=== PATIENT | female | born 1930 | race Caucasian/White ===

== ENCOUNTER 2016-12-31 21:13 | Inpatient (IN) ==
[2016-12-31 23:32] LABS: Hematocrit 43.7 % (35.3-44.9); Hemoglobin 14.9 g/dL (11.5-15.4); Mean Corpuscular HGB Conc 34.1 g/dL (31.6-35.5); Mean Corpuscular Hemoglobin 32.9 pg (28.0-33.3); Mean Corpuscular Volume 96.5 fL (83.0-100.0); Mean Platelet Volume 9.4 fL (9.4-12.4); Platelet Count 544 K/mcL (140-400); Red Blood Count 4.53 M/mcL (3.82-4.97); Red Cell Distribution Width 14.1 % (11.5-14.5)
[2016-12-31 23:36] LABS: INR 1.1; Prothrombin Time 11.7 Seconds (9.4-12.1)
[2016-12-31 23:39] LABS: Activated Partial Thrombo Time 31.3 Seconds (26.0-36.0)
[2016-12-31 23:44] LABS: BUN/Creatinine Ratio 21 (6-26); Blood Urea Nitrogen 17 mg/dL (7-20); Calcium 10.1 mg/dL (8.6-10.8); Carbon Dioxide 22 mEq/L (19-29); Chloride 96 mEq/L (98-109); Glucose 124 mg/dL (70-99); Osmolality,Calculated 273 (280-300); Potassium 4.5 mEq/L (3.5-4.5); Sodium 130 mEq/L (136-145); eGFR For African Americans > 60 (> 60); eGFR For Non-African Americans > 60 (> 60)
[2017-01-01 00:06] LABS: Monocytes # 1.8 K/mcL (0.0-1.3); Neutrophils # 24.1 K/mcL (1.6-8.9)
[2017-01-01 00:09] LABS: Platelet Estimate Increased (Normal); Polychromasia 1+ (Not Present)
[2017-01-01] MEDS ORDERED: Azithromycin 500 MG in D5% in Water 250 ML IVPB ONE (01:18)
[2017-01-01] MEDS ORDERED: 0.9 % Sodium Chloride 1,000 ML IVC ONE (01:18)
[2017-01-01] MEDS ORDERED: Ondansetron 4 MG/2 ML VIAL IVP ONE (01:20)
[2017-01-01] MEDS ORDERED: *HR* Morphine 2 MG/ML SYRINGE IVP ONE (01:20)
--- NOTE | 2017-01-01 01:23 | Emergency Department Note ---
Disposition Clinical Impression: Pulmonary nodules Pneumonia Qualifiers: Pneumonia type: due to unspecified organism Laterality: right Lung location: middle lobe of lung Qualified Code(s): J18.1 - Lobar pneumonia, unspecified organism Leukocytosis Qualifiers: Leukocytosis type: unspecified Qualified Code(s): D72.829 - Elevated white blood cell count, unspecified Breast cancer Qualifiers: Breast location: unspecified site of breast Patient sex: female Laterality: left Qualified Code(s): C50.912 - Malignant neoplasm of unspecified site of left female breast Disposition: Admitted As Inpatient Condition: Fair Time of Disposition: 01:23 General Adult HPI - General Chief complaint: ED General Medical Stated complaint: knots under breast line Time Seen by Provider: 01/01/17 01:10 Source: patient Mode of arrival: ambulatory Limitations: no limitations Nursing Notes Reviewed: Yes Vital Signs Reviewed: Yes - History of Present Illness HPI Narrative: 86-year-old female with history of primary breast malignancy diagnosed 4 months (on po chemo), COPD present for evaluation of left-sided chest pain started earlier today. Patient notes she has been feeling nauseous over the past 2-4 days with vomiting. Patient states that the pain started earlier today notes to be in the left lower chest left upper abdomen. Atraumatic. Notes worse with deep inspiration and worse with palpation. Patient denies any fevers does report a cough reports shortness of breath at her baseline. Patient states that she has has home oxygen continuously. Pain Scale: 10 - Related Data Home Medications Medication Instructions Recorded Confirmed Amlodipine Besylate [Norvasc] 10 mg PO DAILY 04/12/15 12/09/16 Cholecalciferol (Vitamin D3) 400 unit PO DAILY 04/12/15 12/09/16 [Vitamin D] Duloxetine HCl [Cymbalta] 60 mg PO DAILY 04/12/15 12/09/16 Levothyroxine [Synthroid] 100 mcg PO DAILY 04/12/15 12/09/16 Phenytoin [Dilantin] 100 mg PO BID 04/12/15 12/09/16 Temazepam 30 mg PO HS PRN 04/12/15 12/09/16 Tizanidine HCl [Zanaflex] 4 mg PO TID 04/12/15 12/09/16 Ipratropium/Albuterol Neb [Duoneb] 3 ml IH Q6HR 12/09/16 12/09/16 Previous Rx's Medication Instructions Recorded Acetaminophen w/Cod 300-30 mg 1 - 2 tab PO Q6HR PRN #30 tablet 12/23/15 [Tylenol w/Codeine #3] Anastrozole [Arimidex] 1 mg PO DAILY #90 tablet 11/12/16 HYDROcodone/Acet 5/325 mg [[place] 1 tab PO Q6H PRN #12 tab 12/09/16 5-325 mg] PredniSONE 60 mg PO DAILY #15 tablet 12/09/16 OxyCODONE/APAP 5/325 [Percocet 1 each PO Q6HR PRN #10 tablet 12/16/16 5/325 MG] Albuterol Sulfate [Proair 2 puff IH Q4H PRN #1 12/25/16 Respiclick] Amitriptyline [Elavil] 25 mg PO HS #30 tablet 12/25/16 Gabapentin [Neurontin] 300 mg PO HS #30 capsule 12/25/16 Lidocaine Patch [Lidoderm 5% patch] 1 patch TP DAILY #10 adh..patch 12/25/16 Allergies Allergy/AdvReac Type Severity Reaction Status Date / Time phenobarbital AdvReac Intermediate hallucinati Verified 12/16/16 20:30 ons All systems ED: reviewed and negative except as stated. Constitutional: Reports: as per HPI. Denies: fever Eyes: Reports: as per HPI ENT ED: Reports: as per HPI Cardiovascular: Reports: as per HPI, chest pain Respiratory: Reports: as per HPI, cough, dyspnea Gastrointestinal: Reports: as per HPI, nausea, vomiting. Denies: abdominal pain Genitourinary: Reports: as per HPI Musculoskeletal: Reports: as per HPI Integumentary: Reports: as per HPI Neurological: Reports: as per HPI Psychiatric: Reports: as per HPI Past Medical History - Past Medical History Medical history: Reports: cancer, COPD, hypertension, other Surgical history: Reports: non-contributory - Social History Smoking Status: Current every day smoker Alcohol use: Reports: none Drug use: Reports: none Physical Exam - General Limitations: no limitations General appearance: alert, in no apparent distress - Head Head exam: atraumatic, normocephalic, normal inspection - Eye Eye exam: Present: normal appearance, EOMI - ENT ENT exam: normal exam, mucous membranes moist - Neck Neck exam: Present: normal inspection - Chest Chest inspection: Present: normal inspection, symmetric chest wall rise, tenderness (Left lower chest wall). Absent: rash - Respiratory Respiratory exam: Present: prolonged expiratory phase, other (Dependent rhonchi left worse than right). Absent: respiratory distress - Cardiovascular Cardiovascular exam: Present: regular rate - Abdominal Exam Abdominal exam: Present: soft, tenderness. Absent: guarding, rebound - Extremities Exam Extremities exam: Present: normal inspection. Absent: pedal edema - Back Exam Back exam: Present: normal inspection - Neurological Exam Neurological exam: Present: alert, oriented X3 - Skin Skin exam: Present: warm, dry, intact, normal color Course Course Narrative: Patient seen and examined. Patient presents with chief complaint of left lower chest pain as well as abdominal pain. Patient's lab work obtained from [facility] shows a leukocytosis that is significantly worsened than prior values. Patient' s chest x-rays consistent with pneumonia. Patient will get IV antibiotics fluids as well as further imaging with a CT of the chest. Patient control with Zofran and morphine. Vital Signs Temperature 97.7 F 12/31/16 21:14 Pulse Rate 99 12/31/16 21:14 Respiratory Rate 18 12/31/16 21:14 Blood Pressure 110/70 12/31/16 21:14 O2 Sat by Pulse Oximetry 93 12/31/16 21:14 Temperature 97.7 F 12/31/16 21:14 Pulse Rate 96 01/01/17 00:47 Respiratory Rate 16 01/01/17 03:22 Blood Pressure 128/65 01/01/17 03:22 O2 Sat by Pulse Oximetry 97 01/01/17 00:47 Oxygen Delivery Oxygen Delivery Nasal Cannula Medical Decision Making - [facility] Narrative Medical decision making narrative: 86 year old female presents for evaluation of left chest pain and left upper abdominal pain. Patient is a cancer patient and has left-sided breast cancer receiving oral chemotherapy agents. Patient follows at [facility]. Patient also notes that she has been having a cough. During during the emergency department stay the patient had a significant leukocytosis from prior lab values. Looking for source of infection in the lungs in the urine. The patient had a chest x-ray was suggestive of pneumonia. Patient also had a CTA of the chest is concerned for pulmonary embolism in a patient who is high risk for pulmonary also. CTA of the chest better define the pneumonia. Patient has not been hospitalized in the past 3 months. Patient was treated with community acquired pneumonia antibiotics with Rocephin and Zithromax. Patient's EKG reviewed and shows no acute changes. Patient's troponin is normal. Patient was not given a 30 mL/kg bolus as she is 86-year-old with unknown ejection fraction. Patient was treated conservatively with IV fluid hydration. Patient will be admitted to the hospitalist service for further care and management. - Lab Data Lab results reviewed: Yes I reviewed the patient's lab results. Result diagrams: 12/31/16 23:20 12/31/16 23:20 Lab Results 12/31/16 12/31/16 12/31/16 Range/Units 23:20 23:20 23:20 WBC 30.1 H* (4.3-11.1) K/mcL RBC 4.53 (3.82-4.97) M/mcL Hgb 14.9 (11.5-15.4) g/dL Hct 43.7 (35.3-44.9) % MCV 96.5 (83.0-100.0) fL MCH 32.9 (28.0-33.3) pg MCHC 34.1 (31.6-35.5) g/dL RDW 14.1 (11.5-14.5) % Plt Count 544 H (140-400) K/mcL MPV 9.4 (9.4-12.4) fL Seg Neutrophils % 78.0 % Band Neutrophils % 2.0 (0-4) % Lymphocytes % 10.0 % Monocytes % 6.0 % Myelocytes % 4.0 H (0) % Neutrophils # 24.1 H (1.6-8.9) K/mcL Lymphocytes # 3.0 (0.6-4.6) K/mcL Monocytes # 1.8 H (0.0-1.3) K/mcL Platelet Estimate Increased H (Normal) Polychromasia 1+ A (Not Present) PT 11.7 (9.4-12.1) Seconds INR 1.1 APTT 31.3 (26.0-36.0) Seconds Sodium 130 L (136-145) mEq/L Potassium 4.5 (3.5-4.5) mEq/L Chloride 96 L (98-109) mEq/L Carbon Dioxide 22 (19-29) mEq/L BUN 17 (7-20) mg/dL Creatinine 0.81 (0.57-1.11) mg/dL Est GFR ( Amer) > 60 (> 60) Est GFR (Non-Af Amer) > 60 (> 60) BUN/Creatinine Ratio 21 (6-26) Glucose 124 H (70-99) mg/dL Calculated Osmolality 273 L (280-300) Lactic Acid (0.5-2.2) mmol/L Calcium 10.1 (8.6-10.8) mg/dL Troponin I (0-0.03) ng/mL B-Natriuretic Peptide (0-100) pg/mL 12/31/16 12/31/16 01/01/17 Range/Units 23:20 23:20 01:54 WBC (4.3-11.1) K/mcL RBC (3.82-4.97) M/mcL Hgb (11.5-15.4) g/dL Hct (35.3-44.9) % MCV (83.0-100.0) fL MCH (28.0-33.3) pg MCHC (31.6-35.5) g/dL RDW (11.5-14.5) % Plt Count (140-400) K/mcL MPV (9.4-12.4) fL Seg Neutrophils % % Band Neutrophils % (0-4) % Lymphocytes % % Monocytes % % Myelocytes % (0) % Neutrophils # (1.6-8.9) K/mcL Lymphocytes # (0.6-4.6) K/mcL Monocytes # (0.0-1.3) K/mcL Platelet Estimate (Normal) Polychromasia (Not Present) PT (9.4-12.1) Seconds INR APTT (26.0-36.0) Seconds Sodium (136-145) mEq/L Potassium (3.5-4.5) mEq/L Chloride (98-109) mEq/L Carbon Dioxide (19-29) mEq/L BUN (7-20) mg/dL Creatinine (0.57-1.11) mg/dL Est GFR ( Amer) (> 60) Est GFR (Non-Af Amer) (> 60) BUN/Creatinine Ratio (6-26) Glucose (70-99) mg/dL Calculated Osmolality (280-300) Lactic Acid 1.5 (0.5-2.2) mmol/L Calcium (8.6-10.8) mg/dL Troponin I 0.01 (0-0.03) ng/mL B-Natriuretic Peptide 67 (0-100) pg/mL - Radiology Data Radiology results reviewed: Yes I reviewed the patient's radiology results. Chest X-Ray 12/31/16 21:23 IMPRESSION: 1. New right lower lobe opacity concerning for early pneumonia. Radiographic follow-up to resolution is recommended. 2. Findings of emphysema and chronic obstructive physiology. D/ / Gabriel Velez MD / Gabriel Velez MD Interpreting Provider: Gabriel Velez MD Chest CTA 01/01/17 01:19 IMPRESSION: Interval development of right lower lobe pneumonia. Stable right middle lobe and right lower lobe pulmonary nodules. Recommend follow-up as described on chest CT 12/16/2016. Spiculated appearance to the right lower lobe pulmonary nodule could indicate an early finding of lung carcinoma. Underlying pulmonary emphysema Multinodular goiter D/ / Alonzo Barboza MD / Alonzo Barboza MD Interpreting Provider: Alonzo Barboza MD S.B.A.RJoel - S.B.A.RJoel Situation: Demographics, MOA Background: Presenting Complaint Assessment: Vital Signs, Course and respsone to treatment, Patient/Family Expectation Recommendation: Barrier(s) to disposition, Recommendation based on pending studies, treatments, or consults S.B.A.R. Report Given to: Hospitalist Raghavendra Repor Time: 02:47 Attestation Statement - Attestation Attestation: I, Gume Miranda, examined this patient and my medical decision-making was reviewed with the SHIRT OPERATOR/PA/Advanced Practice Nurse/Resident Physician. I agree with the documented findings, disposition and treatment plan as described except to the extent set forth below. 6-year-old female presents with concerns of pain in the right and left lower lateral chest. Patient states that she has chronic pain in the left lateral chest with coughing and palpation secondary to broken ribs in the past. Patient now developed pain in the right lower lateral chest over the past 3 days in conjunction with coughing and shortness of breath. Patient has a history of cancer and a CTA of the chest was ordered to rule out PE. CTA of the chest revealed a right lower lobe pneumonia. Patient started on ceftriaxone and azithromycin emergency department and will be admitted for further care and observation.
--- NOTE | 2017-01-01 04:47 | Internal Med History&Physical ---
Date of Encounter: 01/01/17 Time of Encounter: 04:30 Assessment and Plan (1) Sepsis Current visit: Yes Status: Acute pt with signs and symptoms of pneumonia, found to meet SIRS criteria( the extreme leukocytosis may be related to neulasta) she is being managed per pneumonia section, blood c/s drawn and empiric Abx started, will follow cultures Qualifiers: Sepsis type: sepsis due to unspecified organism Qualified Code(s): A41.9 - Sepsis, unspecified organism (2) Pneumonia Current visit: Yes Status: Acute patient comes in with signs and symptoms of pneumonia with an infiltrate on diagnostic imaging, we will treat empirically as community acquired, we will additionally check urine strep and legionella, sputum Gram stain and c/s, will continue supportive measures for pain and supplemental oxygen as needed Qualifiers: Pneumonia type: due to unspecified organism Laterality: right Lung location: lower lobe of lung Qualified Code(s): J18.1 - Lobar pneumonia, unspecified organism (3) COPD exacerbation Current visit: Yes Status: Acute this is in the setting of pneumonia, we will treat with duo nebs, steroids supplemental oxygen, (4) HTN (hypertension) Current visit: Yes Status: Chronic hx of HTN on amlodipine, we will continue that with BP monitoring Qualifiers: Hypertension type: essential hypertension Qualified Code(s): I10 - Essential (primary) hypertension (5) Breast cancer Current visit: Yes Status: Chronic recently diagnosed and is being managed on the outpatient, we will defer to her oncologist Qualifiers: Breast location: areola Patient sex: female Laterality: left Qualified Code(s): 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, left female breast Internal Medicine - H&P: HPI Chief complaint: Chest pain Admitted From: Emergency Dept Plans for Post Hospital Care: Home History of present illness: Ms. Espinal is a 86 year old female with a history of chronic respiratory failure from COPD on 2L/min of home oxygen who comes with with chest pain. She reports being in her usual state of health until Saturday evening when she began to have left sided chest pain that was pleuritic in character. It was intermittent, worse with deep breaths, associated with productive cough of yellow sputum. This was followed by worsening baseline dyspnea and dyspnea on exertion. She denies fever, chills but reports nausea and vomiting from Saturday through Saturday. She also realized that she was using her inhaler more and was finding it difficult to breathe and her inhalers did not seem to help. She was also waking up at night due to her symptoms. She presented here due to worsening symptoms. Past Medical history: Cancer - Breast (left side), Cancer - Colon, COPD, GERD, Hypertension, Thyroid dysfunction Surgical History cholecystectomy, colectomy (partial), Hysterectomy (total), colon resection PSYCH History: anxiety, depression SOCIAL HISTORY Tobacco use: 60pk years, still actively smokes 1ppd, down from >1ppd Alcohol use: none Drug use: none Marital status: Occupation and status: Retired Living situation: Lives with her . Family History: Throat cancer in her brother. Past Med Surg Social Fam HX - Past Medical History Medical history: cancer, COPD, hypertension, other - Past Surgical History Surgical History: non-contributory - Social History Smoking Status: Current every day smoker Alcohol use: none Drug use: none Internal Medicine - H&P: Meds Amlodipine Besylate [Norvasc] 10 mg PO DAILY 04/12/15 [History] Cholecalciferol (Vitamin D3) [Vitamin D] 400 unit PO DAILY 04/12/15 [History] Duloxetine HCl [Cymbalta] 60 mg PO DAILY 04/12/15 [History] Levothyroxine [Synthroid] 100 mcg PO DAILY 04/12/15 [History] Phenytoin [Dilantin] 100 mg PO BID 04/12/15 [History] Temazepam 30 mg PO HS PRN 04/12/15 [History] Tizanidine HCl [Zanaflex] 4 mg PO TID 04/12/15 [History] Acetaminophen w/Cod 300-30 mg [Tylenol w/Codeine #3] 1 - 2 tab PO Q6HR PRN #30 tablet 12/23/15 [Rx] Anastrozole [Arimidex] 1 mg PO DAILY #90 tablet 11/12/16 [Rx] HYDROcodone/Acet 5/325 mg [[place] 5-325 mg] 1 tab PO Q6H PRN #12 tab 12/09/16 [Rx ] Ipratropium/Albuterol Neb [Duoneb] 3 ml IH Q6HR 12/09/16 [History] PredniSONE 60 mg PO DAILY #15 tablet 12/09/16 [Rx] OxyCODONE/APAP 5/325 [Percocet 5/325 MG] 1 each PO Q6HR PRN #10 tablet 12/16/16 [Rx] Albuterol Sulfate [Proair Respiclick] 2 puff IH Q4H PRN #1 12/25/16 [Rx] Amitriptyline [Elavil] 25 mg PO HS #30 tablet 12/25/16 [Rx] Gabapentin [Neurontin] 300 mg PO HS #30 capsule 12/25/16 [Rx] Lidocaine Patch [Lidoderm 5% patch] 1 patch TP DAILY #10 adh..patch 12/25/16 [Rx ] Allergies phenobarbital Adverse Reaction (Intermediate, Verified 12/16/16 20:30) hallucinations All Systems PM: A 10-system review of systems was performed and is negative for pertinent findings except as documented above in the HPI. - Constitutional Constitutional: as per HPI - EENT Eyes: as per HPI Nose, mouth and throat: as per HPI - Cardiovascular Cardiovascular ROS IM: as per HPI - Respiratory Respiratory: as per HPI - Gastrointestinal Gastrointestinal: as per HPI - Musculoskeletal Musculoskeletal ROS IM: as per HPI - Neurological Neurological ROS: as per HPI - Constitutional Vitals: Temp Pulse Resp BP Pulse Ox 97.7 F 96 16 128/65 97 12/31/16 21:14 01/01/17 00:47 01/01/17 03:22 01/01/17 03:22 01/01/17 00:47 Physical Exam: General: Frail looking elderly female, lying in bed with with transmitted sounds from the upper airways, alert, in mild respiratory distress HEENT: Head normal inspection, atraumatic, PERRLA, oropharynx grossly intact and normal, trachea midline, no JVD CVS: RRR with no murmurs, rubs, gallops, no ankle edema Respiratory: mild respiratory distress, wheezing throughout with transmitted sounds from upper airway, tight chest, Abdomen: Normal inspection, Normal bowel sounds 4 quadrants, nontender to palpation Extremities: Normal inspection, full range of motion, appropriate pulses, capillary refill under 2 seconds Neurological: Patient alert and oriented 3, cranial nerves II through XII grossly intact, non focal motor and sensory exam Skin: bilateral upper extremity ecchymoses Internal Med - H&P Results - Labs CBC & Chem 7: 12/31/16 23:20 04/24/17 23:20 - EKG Data -: EKG Interpreted by Myself EKG shows normal: sinus rhythm Rate: tachycardia - EKG Data Prior EKG available for review: no - Diagnostic Studies Chest x-ray Status: image reviewed by me CT scan - chest Status: image reviewed by me
[2017-01-01] MEDS ORDERED: Naloxone 0.4 MG/ML INJ IVP PRN (04:50)
[2017-01-01] MEDS ORDERED: Acetaminophen 325 MG TABLET PO PRN ×2 (04:50→13:29)
[2017-01-01] MEDS ORDERED: *HR* OxyCODONE/APAP 5/325 TABLET PO PRN (04:51)
[2017-01-01] MEDS ORDERED: Albuterol 2.5 MG/3 ML NEBULIZER IH PRN (05:04)
[2017-01-01] MEDS: *HR* Heparin 5,000 UNIT/ML VIAL SQ SCH ×3 (06:27→22:13)
[2017-01-01] MEDS: Albuterol 2.5 MG/3 ML NEBULIZER IH SCH ×2 (08:22→11:01)
[2017-01-01] MEDS: Ipratropium Neb 0.5 MG NEBULIZER IH SCH ×2 (08:22→11:01)
[2017-01-01] MEDS ORDERED: tiZANidine 4 MG TABLET PO SCH (09:00)
[2017-01-01 09:09] LABS: Basophils # 0.1 K/mcL (0.0-0.2); Basophils % 0.4 %; Eosinophils # 0.1 K/mcL (0.0-0.6); Eosinophils % 0.3 %; Hematocrit 34.1 % (35.3-44.9); Immature Granulocytes % 2.3 % (0-4); Lymphocytes % 11.8 %; Mean Corpuscular HGB Conc 33.4 g/dL (31.6-35.5); Mean Corpuscular Hemoglobin 32.3 pg (28.0-33.3); Mean Corpuscular Volume 96.6 fL (83.0-100.0); Mean Platelet Volume 9.7 fL (9.4-12.4); Monocytes # 1.2 K/mcL (0.0-1.3); Monocytes % 4.7 %; Platelet Count 429 K/mcL (140-400); Red Blood Count 3.53 M/mcL (3.82-4.97); Red Cell Distribution Width 14.1 % (11.5-14.5); Segmented Neutrophils % 80.5 %
[2017-01-01 09:11] LABS: Neutrophils # 20.5 K/mcL (1.6-8.9)
[2017-01-01 09:12] LABS: Hemoglobin 11.4 g/dL (11.5-15.4)
[2017-01-01 09:24] LABS: BUN/Creatinine Ratio 21 (6-26); Blood Urea Nitrogen 14 mg/dL (7-20); Carbon Dioxide 21 mEq/L (19-29); Chloride 100 mEq/L (98-109); Glucose 101 mg/dL (70-99); Magnesium 1.8 mg/dL (1.6-2.6); Osmolality,Calculated 267 (280-300); Potassium 4.1 mEq/L (3.5-4.5); Sodium 128 mEq/L (136-145); eGFR For African Americans > 60 (> 60); eGFR For Non-African Americans > 60 (> 60)
[2017-01-01 09:25] LABS: Calcium 8.2 mg/dL (8.6-10.8)
[2017-01-01] MEDS: predniSONE 20 MG TABLET PO SCH (10:08)
--- NOTE | 2017-01-01 13:23 | Internal Med Progress Note ---
Date of Encounter: 01/01/17 Time of Encounter: 13:22 - Assessment and plan (1) Sepsis Current Visit: Yes Status: Acute Assessment and plan: Secondary to Pna continue empiric abx therapy IV fluids follow up blood culture the extreme leukocytosis may be related to neulasta (received as outpatient) Qualifiers: Sepsis type: sepsis due to unspecified organism Qualified Code(s): A41.9 - Sepsis, unspecified organism (2) Pneumonia Current Visit: Yes Status: Acute Assessment and plan: Continue empiric abx f/u blood cultures tylenol prn fever restarted home pain medications monitor O2 saturation O2 supplementation as needed Qualifiers: Pneumonia type: due to unspecified organism Laterality: right Lung location: lower lobe of lung Qualified Code(s): J18.1 - Lobar pneumonia, unspecified organism (3) COPD exacerbation Current Visit: Yes Status: Acute Assessment and plan: continue steroids and bronchodilator support O2 supplementation as needed monitor O2 sat, goal O2 sat: 89-92% (4) HTN (hypertension) Current Visit: Yes Status: Chronic Assessment and plan: BP within acceptable range continue home medications Qualifiers: Hypertension type: essential hypertension Qualified Code(s): I10 - Essential (primary) hypertension (5) DVT prophylaxis Current Visit: Yes Status: Acute Assessment and plan: Heparin SQ (6) Breast cancer Current Visit: Yes Status: Chronic Assessment and plan: newly diagnosed, currently being managed as outpatient further management as per primary oncologist after discharge Qualifiers: Breast location: unspecified site of breast Patient sex: female Laterality: left Qualified Code(s): C50.912 - Malignant neoplasm of unspecified site of left female breast - Subjective Interval history: Patient seen and examined at bedside. Resting in bed and reports of diffuse rib pain. States she takes Tylenol 3 at home for pain. Denies any shortness of breath at this time. - Constitutional Vitals: Temp Pulse Resp BP Pulse Ox 97.5 F L 69 16 101/63 96 01/01/17 12:16 01/01/17 12:16 01/01/17 12:16 01/01/17 12:16 01/01/17 12:16 General appearance: Present: A&O X 3, no acute distress, answers questions appropriately - Head Head exam: Present: atraumatic, normocephalic - Eye Eye exam: Present: normal appearance, conjuntiva pink, sclera anicteric - Respiratory Respiratory exam: Absent: wheezes (coarse breath sounds bilaterally) - Cardiovascular Cardiovascular exam: Present: RRR, +S1, +S2. Absent: diastolic murmur, gallop, rubs, systolic murmur - GI/Abdominal GI/Abdominal exam: Present: normal bowel sounds, soft, no peritoneal signs. Absent: distended, tenderness - Extremities Exam Extremities exam: Present: warm, radial pulses palpable and symetrical. Absent : calf tenderness, cyanotic, pedal edema - Neurological Exam Neurological exam: Present: alert, oriented X3 - Psychiatric Psychiatric exam: Present: normal affect, normal mood Internal Medicine: Result - Labs CBC & Chem 7: 01/01/17 08:59 01/01/17 08:59 Labs: Short CBC 01/01/17 Range/Units 08:59 WBC 25.4 H (4.3-11.1) K/mcL Hgb 11.4 L D (11.5-15.4) g/dL Hct 34.1 L (35.3-44.9) % Plt Count 429 H (140-400) K/mcL Neutrophils # 20.5 H (1.6-8.9) K/mcL BMP 01/01/17 08:59 Sodium 128 L Potassium 4.1 Chloride 100 Carbon Dioxide 21 BUN 14 Creatinine 0.67 Glucose 101 H Calcium 8.2 L D - ABG Interpretation ABG results: PT/INR, D-dimer PT 11.7 Seconds (9.4-12.1) 12/31/16 23:20 Consult Discharge Plan - Plan Referrals: Ernesto Easton MD [Primary Care Provider] - (Possible ECF)
[2017-01-01] MEDS: tiZANidine 4 MG TABLET PO PRN (13:45)
[2017-01-01] MEDS: *HR* Acetaminophen w/Cod 300-30 mg 1 TAB TABLET PO PRN ×2 (15:27→22:14)
[2017-01-01] MEDS: Ipratropium/Albuterol Neb 3 ML IH SCH ×2 (16:57→20:36)
[2017-01-01] MEDS: 0.9 % Sodium Chloride 1,000 ML IVC SCH (17:46)
[2017-01-01] MEDS ORDERED: Azithromycin 250 MG TABLET PO SCH (20:00)
[2017-01-01] MEDS: Gabapentin 300 MG CAPSULE PO SCH (20:29)
[2017-01-02] MEDS: Ipratropium/Albuterol Neb 3 ML IH SCH ×7 (01:57→23:32)
[2017-01-02] MEDS: *HR* Heparin 5,000 UNIT/ML VIAL SQ SCH ×3 (05:52→21:21)
[2017-01-02 06:50] LABS: Basophils # 0.1 K/mcL (0.0-0.2); Basophils % 0.5 %; Eosinophils # 0.1 K/mcL (0.0-0.6); Eosinophils % 0.4 %; Hematocrit 32.8 % (35.3-44.9); Lymphocytes # 3.1 K/mcL (0.6-4.6); Lymphocytes % 18.3 %; Mean Corpuscular HGB Conc 33.5 g/dL (31.6-35.5); Mean Corpuscular Hemoglobin 32.4 pg (28.0-33.3); Mean Corpuscular Volume 96.8 fL (83.0-100.0); Mean Platelet Volume 10.1 fL (9.4-12.4); Monocytes # 1.2 K/mcL (0.0-1.3); Monocytes % 6.8 %; Neutrophils # 12.2 K/mcL (1.6-8.9); Platelet Count 451 K/mcL (140-400); Red Blood Count 3.39 M/mcL (3.82-4.97)
[2017-01-02 07:09] LABS: BUN/Creatinine Ratio 22 (6-26); Blood Urea Nitrogen 15 mg/dL (7-20); Calcium 8.1 mg/dL (8.6-10.8); Carbon Dioxide 22 mEq/L (19-29); Chloride 105 mEq/L (98-109); Glucose 83 mg/dL (70-99); Magnesium 1.8 mg/dL (1.6-2.6); Osmolality,Calculated 278 (280-300); Phosphorous 2.4 mg/dL (2.3-4.7); Potassium 4.1 mEq/L (3.5-4.5); Sodium 134 mEq/L (136-145); eGFR For African Americans > 60 (> 60); eGFR For Non-African Americans > 60 (> 60)
[2017-01-02] MEDS: Azithromycin 250 MG TABLET PO SCH (09:28)
[2017-01-02] MEDS: predniSONE 20 MG TABLET PO SCH (09:29)
[2017-01-02] MEDS: Gabapentin 300 MG CAPSULE PO SCH ×2 (09:29→19:48)
[2017-01-02] MEDS: 0.9 % Sodium Chloride 1,000 ML IVC SCH (09:47)
--- NOTE | 2017-01-02 15:58 | Internal Med Progress Note ---
Date of Encounter: 01/02/17 Time of Encounter: 14:10 - Assessment and plan (1) Sepsis Current Visit: Yes Status: Acute Assessment and plan: Secondary to PNA continue empiric abx therapy IV fluids follow up blood culture Qualifiers: Sepsis type: sepsis due to unspecified organism Qualified Code(s): A41.9 - Sepsis, unspecified organism (2) Pneumonia Current Visit: Yes Status: Acute Assessment and plan: Continue empiric abx f/u blood cultures tylenol prn fever restarted home pain medications monitor O2 saturation O2 supplementation as needed (3) COPD exacerbation Current Visit: Yes Status: Acute Assessment and plan: continue steroids and bronchodilator support O2 supplementation as needed monitor O2 sat, goal O2 sat: 89-92% (4) HTN (hypertension) Current Visit: Yes Status: Chronic Assessment and plan: BP within acceptable range continue home medications Qualifiers: Hypertension type: essential hypertension Qualified Code(s): I10 - Essential (primary) hypertension (5) DVT prophylaxis Current Visit: Yes Status: Acute Assessment and plan: Heparin SQ (6) Breast cancer Current Visit: Yes Status: Chronic Assessment and plan: newly diagnosed, currently being managed as outpatient further management as per primary oncologist after discharge Pain control: restarted patient's home pain medications including Lidocaine TD patch Qualifiers: Breast location: unspecified site of breast Patient sex: female Laterality: left Qualified Code(s): C50.912 - Malignant neoplasm of unspecified site of left female breast - Subjective Interval history: Patient seen and examined at bedside. Reports of improvement in her respiratory status but continues to have persistent chronic rib pain, states she uses a pain patch at home and requests continuation of the patch. No overnight issues were reported. - Constitutional Vitals: Temp Pulse Resp BP Pulse Ox 97.7 F 84 18 139/65 99 01/02/17 15:54 01/02/17 15:54 01/02/17 15:54 01/02/17 15:54 01/02/17 15:54 General appearance: Present: A&O X 3, no acute distress, answers questions appropriately - Head Head exam: Present: atraumatic, normocephalic - Eye Eye exam: Present: normal appearance, conjuntiva pink, sclera anicteric - Respiratory Respiratory exam: Absent: respiratory distress, wheezes (coarse breath sounds bilaterally ) - Cardiovascular Cardiovascular exam: Present: RRR, +S1, +S2. Absent: diastolic murmur, gallop, rubs, systolic murmur - GI/Abdominal GI/Abdominal exam: Present: normal bowel sounds, soft, no peritoneal signs. Absent: distended, tenderness - Extremities Exam Extremities exam: Present: warm, radial pulses palpable and symetrical. Absent : calf tenderness, cyanotic, pedal edema - Neurological Exam Neurological exam: Present: alert, oriented X3 - Psychiatric Psychiatric exam: Present: normal affect, normal mood Internal Medicine: Result - Labs CBC & Chem 7: 01/02/17 06:18 01/02/17 06:18 Labs: Short CBC 01/02/17 Range/Units 06:18 WBC 17.1 H (4.3-11.1) K/mcL Hgb 11.0 L (11.5-15.4) g/dL Hct 32.8 L (35.3-44.9) % Plt Count 451 H (140-400) K/mcL Neutrophils # 12.2 H (1.6-8.9) K/mcL BMP 01/02/17 06:18 Sodium 134 L Potassium 4.1 Chloride 105 Carbon Dioxide 22 BUN 15 Creatinine 0.67 Glucose 83 Calcium 8.1 L - ABG Interpretation ABG results: PT/INR, D-dimer PT 11.7 Seconds (9.4-12.1) 12/31/16 23:20 Consult Discharge Plan - Plan Referrals: Ernesto Easton MD [Primary Care Provider] - 01/10/17 10:00 am ()
[2017-01-02] MEDS: tiZANidine 4 MG TABLET PO PRN (16:36)
[2017-01-02] MEDS: *HR* Acetaminophen w/Cod 300-30 mg 1 TAB TABLET PO PRN (19:47)
[2017-01-02] MEDS: clonazePAM 0.5 MG TABLET PO PRN (21:21)
[2017-01-03] MEDS: Ipratropium/Albuterol Neb 3 ML IH SCH ×6 (03:48→23:25)
[2017-01-03] MEDS: *HR* Heparin 5,000 UNIT/ML VIAL SQ SCH ×3 (04:26→22:24)
[2017-01-03] MEDS: *HR* Acetaminophen w/Cod 300-30 mg 1 TAB TABLET PO PRN ×3 (04:26→19:18)
[2017-01-03 06:19] LABS: Basophils # 0.1 K/mcL (0.0-0.2); Basophils % 0.4 %; Eosinophils # 0.1 K/mcL (0.0-0.6); Eosinophils % 0.6 %; Hematocrit 28.8 % (35.3-44.9); Hemoglobin 9.5 g/dL (11.5-15.4); Immature Granulocytes % 3.6 % (0-4); Lymphocytes # 2.6 K/mcL (0.6-4.6); Lymphocytes % 17.1 %; Mean Corpuscular Hemoglobin 32.3 pg (28.0-33.3); Mean Platelet Volume 9.9 fL (9.4-12.4); Monocytes # 0.9 K/mcL (0.0-1.3); Neutrophils # 11.2 K/mcL (1.6-8.9); Platelet Count 448 K/mcL (140-400); Red Blood Count 2.94 M/mcL (3.82-4.97); Red Cell Distribution Width 14.2 % (11.5-14.5); Segmented Neutrophils % 72.3 %
[2017-01-03 06:32] LABS: BUN/Creatinine Ratio 15 (6-26); Blood Urea Nitrogen 10 mg/dL (7-20); Calcium 7.6 mg/dL (8.6-10.8); Carbon Dioxide 21 mEq/L (19-29); Chloride 108 mEq/L (98-109); Glucose 146 mg/dL (70-99); Magnesium 1.8 mg/dL (1.6-2.6); Osmolality,Calculated 284 (280-300); Potassium 3.4 mEq/L (3.5-4.5); Sodium 136 mEq/L (136-145); eGFR For African Americans > 60 (> 60); eGFR For Non-African Americans > 60 (> 60)
[2017-01-03] MEDS ORDERED: Potassium Phosphate 44 MEQ in 0.9 % Sodium Chloride 250 ML IVPB ONE (09:07)
[2017-01-03] MEDS: Azithromycin 250 MG TABLET PO SCH (09:50)
[2017-01-03] MEDS: Gabapentin 300 MG CAPSULE PO SCH ×2 (09:51→22:24)
[2017-01-03] MEDS: predniSONE 20 MG TABLET PO SCH (09:52)
[2017-01-03] MEDS: clonazePAM 0.5 MG TABLET PO PRN ×2 (11:29→22:30)
--- NOTE | 2017-01-03 13:11 | Internal Med Progress Note ---
Date of Encounter: 01/03/17 Time of Encounter: 13:11 - Assessment and plan (1) Sepsis Current Visit: Yes Status: Acute Assessment and plan: Secondary to PNA continue empiric abx therapy IV fluids follow up blood culture discharge planning, likely d/c in am Qualifiers: Sepsis type: sepsis due to unspecified organism Qualified Code(s): A41.9 - Sepsis, unspecified organism (2) Pneumonia Current Visit: Yes Status: Acute Assessment and plan: Continue empiric abx f/u blood cultures tylenol prn fever continue home pain medications monitor O2 saturation O2 supplementation as needed (3) COPD exacerbation Current Visit: Yes Status: Acute Assessment and plan: continue steroids and bronchodilator support O2 supplementation as needed monitor O2 sat, goal O2 sat: 89-92% (4) HTN (hypertension) Current Visit: Yes Status: Chronic Assessment and plan: Noted to be hypertensive likely secondary to painful stress, repeat BP within acceptable range will closely monitor added Hydralazine 10mg IV q6h prn SBP>160 continue home medications Qualifiers: Hypertension type: essential hypertension Qualified Code(s): I10 - Essential (primary) hypertension (5) DVT prophylaxis Current Visit: Yes Status: Acute Assessment and plan: Heparin SQ (6) Breast cancer Current Visit: Yes Status: Chronic Assessment and plan: newly diagnosed, currently being managed as outpatient further management as per primary oncologist after discharge Pain control: continue patient's home pain medications including Lidocaine TD patch Qualifiers: Breast location: unspecified site of breast Patient sex: female Laterality: left Qualified Code(s): C50.912 - Malignant neoplasm of unspecified site of left female breast (7) Electrolyte abnormality Current Visit: Yes Status: Acute Assessment and plan: Hypokalemia and hypophosphatemia K and Phos supplemented continue to monitor electrolytes and replace as needed - Subjective Interval history: Patient seen and examined at bedside. Reports of severe breast pain and states its controlled with her home meds. No overnight issues were reported. - Constitutional Vitals: Temp Pulse Resp BP Pulse Ox 97.9 F 76 14 179/71 94 01/03/17 11:10 01/03/17 11:10 01/03/17 11:12 01/03/17 11:10 01/03/17 11:12 General appearance: Present: A&O X 3, no acute distress, answers questions appropriately - Head Head exam: Present: atraumatic, normocephalic - Eye Eye exam: Present: PERRL, conjuntiva pink, sclera anicteric - Respiratory Respiratory exam: Absent: respiratory distress, wheezes - Cardiovascular Cardiovascular exam: Present: RRR, +S1, +S2. Absent: diastolic murmur, gallop, rubs, systolic murmur - GI/Abdominal GI/Abdominal exam: Present: normal bowel sounds, soft, no peritoneal signs. Absent: distended, tenderness - Extremities Exam Extremities exam: Present: warm, radial pulses palpable and symetrical. Absent : calf tenderness, cyanotic, pedal edema - Neurological Exam Neurological exam: Present: alert, oriented X3 - Psychiatric Psychiatric exam: Present: normal affect, normal mood Internal Medicine: Result - Labs CBC & Chem 7: 01/03/17 05:40 01/03/17 05:40 Labs: Short CBC 01/03/17 Range/Units 05:40 WBC 15.4 H (4.3-11.1) K/mcL Hgb 9.5 L D (11.5-15.4) g/dL Hct 28.8 L (35.3-44.9) % Plt Count 448 H (140-400) K/mcL Neutrophils # 11.2 H (1.6-8.9) K/mcL BMP 01/03/17 05:40 Sodium 136 Potassium 3.4 L Chloride 108 Carbon Dioxide 21 BUN 10 Creatinine 0.65 Glucose 146 H Calcium 7.6 L - ABG Interpretation ABG results: PT/INR, D-dimer PT 11.7 Seconds (9.4-12.1) 12/31/16 23:20 Consult Discharge Plan - Plan Referrals: Ernesto Easton MD [Primary Care Provider] - 01/10/17 10:00 am ()
[2017-01-03] MEDS: amLODIPine 5 MG TABLET PO SCH (13:30)
[2017-01-03] MEDS: 0.9 % Sodium Chloride 1,000 ML IVC SCH (22:26)
[2017-01-03] MEDS: tiZANidine 4 MG TABLET PO PRN (22:30)
[2017-01-04] MEDS: Ipratropium/Albuterol Neb 3 ML IH SCH ×3 (03:44→10:46)
[2017-01-04 06:12] LABS: Basophils # 0.1 K/mcL (0.0-0.2); Basophils % 0.6 %; Eosinophils # 0.1 K/mcL (0.0-0.6); Hemoglobin 9.5 g/dL (11.5-15.4); Immature Granulocytes % 4.5 % (0-4); Lymphocytes # 2.7 K/mcL (0.6-4.6); Lymphocytes % 24.2 %; Mean Corpuscular HGB Conc 32.8 g/dL (31.6-35.5); Mean Corpuscular Hemoglobin 32.4 pg (28.0-33.3); Monocytes # 0.9 K/mcL (0.0-1.3); Monocytes % 8.4 %; Neutrophils # 6.8 K/mcL (1.6-8.9); Platelet Count 484 K/mcL (140-400); Red Blood Count 2.93 M/mcL (3.82-4.97); Red Cell Distribution Width 14.4 % (11.5-14.5); Segmented Neutrophils % 61.3 %
[2017-01-04] MEDS: *HR* Heparin 5,000 UNIT/ML VIAL SQ SCH (06:26)
[2017-01-04 06:35] LABS: BUN/Creatinine Ratio 16 (6-26); Blood Urea Nitrogen 9 mg/dL (7-20); Calcium 7.7 mg/dL (8.6-10.8); Carbon Dioxide 24 mEq/L (19-29); Chloride 112 mEq/L (98-109); Glucose 75 mg/dL (70-99); Magnesium 1.9 mg/dL (1.6-2.6); Osmolality,Calculated 289 (280-300); Phosphorous 2.4 mg/dL (2.3-4.7); Potassium 3.9 mEq/L (3.5-4.5); Sodium 141 mEq/L (136-145); eGFR For African Americans > 60 (> 60); eGFR For Non-African Americans > 60 (> 60)
[2017-01-04] MEDS: Gabapentin 300 MG CAPSULE PO SCH (10:18)
[2017-01-04] MEDS: Azithromycin 250 MG TABLET PO SCH (10:18)
[2017-01-04] MEDS: amLODIPine 5 MG TABLET PO SCH (10:18)
[2017-01-04] MEDS: predniSONE 20 MG TABLET PO SCH (10:19)
[2017-01-04 11:25] VITALS: BP 143/61
--- NOTE | 2017-01-04 11:50 | Discharge Summary ---
Date of Encounter: 01/04/17 Time of Encounter: 11:48 - Discharge Diagnosis (1) Sepsis Priority: Primary Status: Resolved Qualifiers: Sepsis type: sepsis due to unspecified organism Qualified Code(s): A41.9 - Sepsis, unspecified organism (2) Pneumonia Priority: Primary Status: Acute (3) COPD exacerbation Priority: Secondary Status: Chronic (4) HTN (hypertension) Priority: Secondary Status: Chronic Qualifiers: Hypertension type: essential hypertension Qualified Code(s): I10 - Essential (primary) hypertension (5) DVT prophylaxis Priority: Secondary Status: Acute (6) Breast cancer Priority: Secondary Status: Chronic Qualifiers: Breast location: unspecified site of breast Patient sex: female Laterality: left Qualified Code(s): C50.912 - Malignant neoplasm of unspecified site of left female breast (7) Electrolyte abnormality Priority: Secondary Status: Resolved - Discharge Medications Prescriptions: Azithromycin [Zithromax] 500 mg PO DAILY #1 tablet Cefdinir [Omnicef] 300 mg PO BID #6 capsule Home Medications: Amlodipine Besylate [Norvasc] 5 mg PO DAILY 04/12/15 [History] Cholecalciferol (Vitamin D3) [Vitamin D3] 400 unit PO DAILY 04/12/15 [History] Duloxetine HCl [Cymbalta] 60 mg PO DAILY 04/12/15 [History] Levothyroxine [Synthroid] 100 mcg PO DAILY 04/12/15 [History] Phenytoin [Dilantin] 100 mg PO BID 04/12/15 [History] Temazepam 30 mg PO HS PRN 04/12/15 [History] Tizanidine HCl [Zanaflex] 4 mg PO TID 04/12/15 [History] Acetaminophen w/Cod 300-30 mg [Tylenol w/Codeine #3] 1 - 2 tab PO Q6HR PRN #30 tablet 12/23/15 [Rx] Anastrozole [Arimidex] 1 mg PO DAILY #90 tablet 11/12/16 [Rx] Ipratropium/Albuterol Neb [Duoneb] 3 ml IH Q6HR PRN 12/09/16 [History] Albuterol Sulfate [Proair Respiclick] 2 puff IH Q4H PRN #1 12/25/16 [Rx] Amitriptyline [Elavil] 25 mg PO HS #30 tablet 12/25/16 [Rx] Lidocaine Patch [Lidoderm 5% patch] 1 patch TP DAILY #10 adh..patch 12/25/16 [Rx ] Budesonide/Formoterol 160/4.5 [Symbicort 160/4.5] 2 puff IH BIDR 01/01/17 [ History] ClonazePAM [Klonopin] 0.5 mg PO TID PRN 01/01/17 [History] Gabapentin [Neurontin] 1,200 mg PO HS 01/01/17 [History] Gabapentin [Neurontin] 300 mg PO QAM 01/01/17 [History] Lansoprazole [Prevacid] 30 mg PO DAILY 01/01/17 [History] Naproxen [Naprosyn] 500 mg PO BID 01/01/17 [History] Ondansetron HCl [Zofran] 4 mg PO Q8H PRN 01/01/17 [History] TraZODone 50 mg PO HS 01/01/17 [History] Azithromycin [Zithromax] 500 mg PO DAILY #1 tablet 01/04/17 [Rx] Cefdinir [Omnicef] 300 mg PO BID #6 capsule 01/04/17 [Rx] Allergies/Adverse Reactions: Allergies phenobarbital Adverse Reaction (Intermediate, Verified 12/16/16 20:30) hallucinations Date of admission: 01/01/17 16:38 Primary care physician: Ernesto Easton MD Discharging clinician: Amanda Joel Anticipated date of discharge: 01/04/17 - Patient Status Disposition: Home Health Service Condition: Good Functional capacity at discharge: uses cane/walker Overall status at discharge: patient is back to baseline - Discharge Instructions Follow Up With: Ernesto Easton MD [Primary Care Provider] - 01/10/17 10:00 am () Additional Instructions: Please follow-up with your primary care physician within one week after discharge from the hospital. Please continue oral antibiotics as prescribed. Please resume all home medications as prescribed by your primary care physician. - Diet and Activity Activity: as per physical therapy Diet: low salt diet Hospital course: Ms. Espinal is a 86 year old female with past medical history of chronic respiratory failure from COPD on long-term oxygen therapy, breast cancer, GERD, hypertension who was admitted for sepsis secondary to pneumonia. Patient was started on IV antibiotics and IV fluids. She responded appropriately to therapy and is currently hemodynamically stable. Patient was evaluated by physical therapy and home health was recommended. At this time patient is stable for discharge and will be discharged to home. She is to follow up with primary care physician after discharge. She is to continue oral antibiotics after discharge. Patient demonstrates understanding of her diagnosis and agrees with the discharge care and plan. - Time Spent with Patient Total time spent providing and/or coordinating discharge services: Less than 30 minutes - Constitutional Vitals: Temp Pulse Resp BP Pulse Ox 97.6 F 71 16 143/61 94 01/04/17 11:21 01/04/17 11:21 01/04/17 11:21 01/04/17 11:21 01/04/17 11:21 General appearance: Present: A&O X 3, no acute distress, answers questions appropriately - Head Head exam: Present: atraumatic, normocephalic - Eye Eye exam: Present: conjuntiva pink, sclera anicteric - Respiratory Respiratory exam: Absent: respiratory distress, wheezes - Cardiovascular Cardiovascular exam: Present: RRR, +S1, +S2. Absent: diastolic murmur, gallop, rubs, systolic murmur - GI/Abdominal GI/Abdominal exam: Present: normal bowel sounds, soft, no peritoneal signs. Absent: distended, tenderness - Extremities Exam Extremities exam: Present: warm, radial pulses palpable and symetrical. Absent : calf tenderness, cyanotic, pedal edema - Neurological Exam Neurological exam: Present: alert, oriented X3 - Psychiatric Psychiatric exam: Present: normal affect, normal mood
--- NOTE | 2017-01-04 11:56 | Physician Discharge Referral ---
Home Health/Hosp Referral Info Transfer to: Home Health Provider in Charge Post Discharge: PCP - Diagnosis (1) Sepsis Priority: Primary Status: Resolved (2) Pneumonia Priority: Primary Status: Acute (3) COPD exacerbation Priority: Secondary Status: Chronic (4) HTN (hypertension) Priority: Secondary Status: Chronic (5) DVT prophylaxis Priority: Secondary Status: Acute (6) Breast cancer Priority: Secondary Status: Chronic (7) Electrolyte abnormality Priority: Secondary Status: Resolved - Respiratory Orders Smoking Cessation: Smoking cessation has been advised. For more information, call the [place] Tobacco Quit Line at 3-279-RCGJ-NOW. - Services Needed Following services are medically necessary services: Nursing, Home Health Aide, Physical Therapy, Occupational Therapy - Transfer Medications Prescriptions: Azithromycin [Zithromax] 500 mg PO DAILY #1 tablet Cefdinir [Omnicef] 300 mg PO BID #6 capsule Home Medications: Amlodipine Besylate [Norvasc] 5 mg PO DAILY 04/12/15 [History] Cholecalciferol (Vitamin D3) [Vitamin D3] 400 unit PO DAILY 04/12/15 [History] Duloxetine HCl [Cymbalta] 60 mg PO DAILY 04/12/15 [History] Levothyroxine [Synthroid] 100 mcg PO DAILY 04/12/15 [History] Phenytoin [Dilantin] 100 mg PO BID 04/12/15 [History] Temazepam 30 mg PO HS PRN 04/12/15 [History] Tizanidine HCl [Zanaflex] 4 mg PO TID 04/12/15 [History] Acetaminophen w/Cod 300-30 mg [Tylenol w/Codeine #3] 1 - 2 tab PO Q6HR PRN #30 tablet 12/23/15 [Rx] Anastrozole [Arimidex] 1 mg PO DAILY #90 tablet 11/12/16 [Rx] Ipratropium/Albuterol Neb [Duoneb] 3 ml IH Q6HR PRN 12/09/16 [History] Albuterol Sulfate [Proair Respiclick] 2 puff IH Q4H PRN #1 12/25/16 [Rx] Amitriptyline [Elavil] 25 mg PO HS #30 tablet 12/25/16 [Rx] Lidocaine Patch [Lidoderm 5% patch] 1 patch TP DAILY #10 adh..patch 12/25/16 [Rx ] Budesonide/Formoterol 160/4.5 [Symbicort 160/4.5] 2 puff IH BIDR 01/01/17 [ History] ClonazePAM [Klonopin] 0.5 mg PO TID PRN 01/01/17 [History] Gabapentin [Neurontin] 1,200 mg PO HS 01/01/17 [History] Gabapentin [Neurontin] 300 mg PO QAM 01/01/17 [History] Lansoprazole [Prevacid] 30 mg PO DAILY 01/01/17 [History] Naproxen [Naprosyn] 500 mg PO BID 01/01/17 [History] Ondansetron HCl [Zofran] 4 mg PO Q8H PRN 01/01/17 [History] TraZODone 50 mg PO HS 01/01/17 [History] Azithromycin [Zithromax] 500 mg PO DAILY #1 tablet 01/04/17 [Rx] Cefdinir [Omnicef] 300 mg PO BID #6 capsule 01/04/17 [Rx] Allergies/Adverse Reactions: Allergies phenobarbital Adverse Reaction (Intermediate, Verified 12/16/16 20:30) hallucinations Certification: Further, I certify that my clinical findings support that this patient is homebound (i.e. absences from home require considerable and taxing effort and are for medical reasons or [employer] or infrequently or short duration when for other reasons) because: Homebound Reason: Patient requires assistance of a person or device to safely leave home Attestation: My signature below is to certify that this patient is under my care and that I, or nurse practitioner, or a physician's surgical assistant certified working with me, has a face-to -face encounter with this patient.
== END 2017-01-04 14:18 | disposition home health service (06) | DRG 871 ==
LOC: 2ANU 21:13 → EMEROO 21:13 → SUATTDRO 01-01 03:05 → 2ANU 01-01 03:57
PROVIDERS: ADMIT Internal Medicine; ATTEND Internal Medicine

== ENCOUNTER 2017-07-13 08:34 | Inpatient (IN) ==
[2017-07-13] MEDS ORDERED: Ondansetron 4 MG/2 ML VIAL ONE (12:49)
[2017-07-13] MEDS ORDERED: Ondansetron 4 MG/2 ML VIAL IVP ONE (12:57)
[2017-07-13] MEDS ORDERED: Naloxone 0.4 MG/ML INJ IVP PRN (13:04)
[2017-07-13 13:14] LABS: Basophils # 0.1 K/mcL (0.0-0.2); Basophils % 0.8 %; Eosinophils # 0.1 K/mcL (0.0-0.6); Hematocrit 36.4 % (35.3-44.9); Hemoglobin 12.2 g/dL (11.5-15.4); Immature Granulocytes % 2.4 % (0-4); Lymphocytes # 2.6 K/mcL (0.6-4.6); Lymphocytes % 22.2 %; Mean Corpuscular HGB Conc 33.5 g/dL (31.6-35.5); Mean Corpuscular Hemoglobin 31.4 pg (28.0-33.3); Mean Corpuscular Volume 93.6 fL (83.0-100.0); Mean Platelet Volume 9.8 fL (9.4-12.4); Monocytes # 0.8 K/mcL (0.0-1.3); Monocytes % 7.1 %; Neutrophils # 7.7 K/mcL (1.6-8.9); Platelet Count 269 K/mcL (140-400); Red Blood Count 3.89 M/mcL (3.82-4.97); Segmented Neutrophils % 66.5 %
[2017-07-13] MEDS ORDERED: Ondansetron 4 MG/2 ML VIAL IVP PRN (13:25)
[2017-07-13] MEDS ORDERED: *HR* Morphine 2 MG/ML SYRINGE IVP PRN ×2 (13:25→14:50)
[2017-07-13 13:29] LABS: Alanine Aminotransferase < 6 Units/L (0-55); Albumin 2.7 g/dL (3.5-5.0); Albumin/Globulin Ratio 0.8 (1.1-2.2); Alkaline Phosphatase 125 Units/L (38-126); Aspartate Amino Transferase 12 Units/L (5-34); BUN/Creatinine Ratio 24 (6-26); Bilirubin,Total 0.3 mg/dL (0.2-1.2); Blood Urea Nitrogen 25 mg/dL (7-20); Carbon Dioxide 22 mEq/L (19-29); Chloride 100 mEq/L (98-109); Globulin 3.5 g/dL (2.4-3.5); Glucose 104 mg/dL (70-99); Osmolality,Calculated 275 (280-300); Potassium 3.9 mEq/L (3.5-4.5); Sodium 130 mEq/L (136-145); Total Protein 6.2 g/dL (6.0-8.3); eGFR For African Americans 59 (> 60); eGFR For Non-African Americans 49 (> 60)
[2017-07-13] MEDS ORDERED: Benzonatate 100 MG CAPSULE PO PRN (13:32)
[2017-07-13] MEDS ORDERED: Ipratropium/Albuterol Neb 3 ML IH PRN (13:35)
--- NOTE | 2017-07-13 13:48 | Internal Med History&Physical ---
Date of Encounter: 07/13/17 Time of Encounter: 12:30 Assessment and Plan (1) Severe pain Current visit: Yes Status: Acute Patient reports severe pain throughout her abdomen and body d/t current cancer dx. Pt. normally takes Neurontin and uses fentanyl and lidocaine patches for pain management patient placed on morphine IVP 2 mg every 6HR scheduled an IVP morphine 2 mg every 3HR when necessary for sever breakthrough pain. Supplemental O2 with titration SPO2 monitoring. Communication order to monitor patient for respiratory depression due to morphine use and notify provider. Pt. high risk for further morbidity d/t cancer dx and current uncontrolled pain. Observation. (2) Nausea and vomiting in adult patient Current visit: Yes Status: Acute Acute N/V with bilious output. Pt. reports anorexia for the past three days. Possible infection versus opiate withdrawal from not receiving pain medications d/t drug diversion w/family member(s). IVP Zofran 8 mg Q6 PRN. IVP Protonix 40 mg daily. Monitor I&O and daily weight. Nutrition consult ordered. NPO with diet to be advanced as tolerated. (3) SOB (shortness of breath) Current visit: Yes Status: Acute Acute SOB related to COPD dx versus possible aspiration event/risk as noted on earlier oncology consult of 04/23/17. CXR ordered stat to assess for possible infiltrates or pneumonitis. Supplemental O2 w/titration w/SpO2 monitoring. DuoNebs Q6 PRN. Tessalon 100 mg TID for cough. Will assess CXR for possible abx needs if aspiration/pneumonia evident. Pt. receiving morphine IVP for severe pain. Communication order to monitor pt. for signs of respiratory depression from morphine and notify provider. (4) Failure to thrive in adult Current visit: Yes Status: Acute Pt. reports she has not eaten in three days and continues to experience N/V. Current weight is 39.633 kg w/BMI of 17. Pt. is most likely cachexic d/t cancer dx. IVP Zofran 8 mg Q6 PRN. IVP Protonix 40 mg daily. Nutrition consult ordered for PO supplementation. Stair-step pain medications for pain management. SW consult for possible placement and insurance needs for Hospice post-discharge. (5) COPD (chronic obstructive pulmonary disease) Current visit: Yes Status: Chronic Hx of chronic COPD. Pt. reports she continues to smoke 1 PPD. Continue pts. inhalers and add DuoNebs Q6 PRN. Supplemental O2 w/titration and SpO2 monitoring. Qualifiers: COPD type: emphysema Qualified Code(s): J43.9 - Emphysema, unspecified (6) Tobacco abuse Current visit: Yes Status: Chronic Pt. reports smoking 1 PPD w/o intent to quit. Nicotine patch 14 mg ordered. (7) HTN (hypertension) Current visit: Yes Status: Chronic Hx of chronic HTN. Monitor pt. and VS. Continue Norvasc. Qualifiers: Hypertension type: essential hypertension Qualified Code(s): I10 - Essential (primary) hypertension (8) Breast cancer, left breast Current visit: Yes Status: Chronic Dx of left-sided breast cancer in 01/20. Oncology consult on 04/23/17 showed no acute abnormalities to suggest new/progressive malignancy but some evidence of aspiration event. Continue patient's Arimidex when N/V controlled. Pt. to f/u w/ oncology on OP basis. Will not pursue aggressive measures based on pts. wishes for hospice/palliative care. Pt. discussed with Dr. King w/recommendations for placement in SNF/ECF. SW consult ordered to assess insurance requirements for placement post-discharge. 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 Pharmacologic DVT prophylaxis contraindicated d/t hematomas/scabbing on pts. UEs and LEs. Internal Medicine - H&P: HPI Chief complaint: Pain management d/t Cancer dx Admitted From: Emergency Dept Plans for Post Hospital Care: Home History of present illness: Ms. Espinal is a 87 year old female with medical hx of COPD, hypertension, and breast cancer presents from [facility] due to severe pain related to cancer diagnosis which has become worse over the past week. Patient reports she was previously with hospice at [facility] but is no longer w/them d/t possible drug diversion from family member(s). Patient reports severe pain r/t her cancer, falls at home, dizziness, SOB, abdominal pain, nausea, vomiting, and no appetite for the past three days. She denies recent illness, fever, chills, changes in vision, unusual bleeding, headache, chest pain, palpitations , pre-syncope, or syncope. Past Med Surg Social Fam HX - Past Medical History Source: patient, old records reviewed, obtained from family Medical history: cancer (Breast with metastases to colon and lung), COPD, hypertension, other Psychiatric history: anxiety, depression - Past Surgical History Surgical History: non-contributory - Social History Smoking Status: Current every day smoker Packs per day: 1 PPD Smokeless Tobacco Status: Yes Alcohol use: none Drug use: none Current living situation: Home, With Family Activity Level: Uses cane/walker Recent Out of Country Travel Within the Last 8 Weeks: No Exposure or Possible Exposure to Illness During Travel: No - Family History Father Race: Family Member Ethnicity: Non- Living Status: Cause of : Black lung Hx Family Respiratory Disorders: Yes (Black lung from working in coal mines) Mother Race: Family Member Ethnicity: Non- Living Status: Age at : 88 Cause of : Cancer (type unknown) Hx Family Cancer: Yes Brother History Unknown: Yes Race: Family Member Ethnicity: Non- Living Status: Sister Race: Family Member Ethnicity: Non- Living Status: Still Living Hx Family Endocrine Disorder: Yes (Cirrhosis) Internal Medicine - H&P: Meds Amlodipine Besylate [Norvasc] 5 mg PO DAILY 04/12/15 [History] Cholecalciferol (Vitamin D3) [Vitamin D3] 400 unit PO DAILY 04/12/15 [History] Duloxetine HCl [Cymbalta] 60 mg PO DAILY 04/12/15 [History] Levothyroxine [Synthroid] 100 mcg PO DAILY 04/12/15 [History] Phenytoin [Dilantin] 100 mg PO TID 04/12/15 [History] Tizanidine HCl [Zanaflex] 4 mg PO TID 04/12/15 [History] Acetaminophen w/Cod 300-30 mg [Tylenol w/Codeine #3] 1 - 2 tab PO Q6HR PRN #30 tablet 12/23/15 [Rx] Anastrozole [Arimidex] 1 mg PO DAILY #90 tablet 11/12/16 [Rx] Ipratropium/Albuterol Neb [Duoneb] 3 ml IH Q6HR PRN 12/09/16 [History] Albuterol Sulfate [Proair Respiclick] 2 puff IH Q4H PRN #1 12/25/16 [Rx] Lidocaine Patch [Lidoderm 5% patch] 1 patch TP DAILY #10 adh..patch 12/25/16 [Rx ] Budesonide/Formoterol 160/4.5 [Symbicort 160/4.5] 2 puff IH BIDR 01/01/17 [ History] Gabapentin [Neurontin] 1,200 mg PO HS 01/01/17 [History] Gabapentin [Neurontin] 600 mg PO QAM 01/01/17 [History] Lansoprazole [Prevacid] 30 mg PO DAILY 01/01/17 [History] clonazePAM [Klonopin] 1 mg PO TID PRN 01/01/17 [History] traZODone [TraZODone] 50 mg PO HS 01/01/17 [History] OxyCODONE/APAP 5/325 [Percocet 5/325 MG] 1 each PO Q6HR PRN #10 tablet 03/31/17 [Rx] Oxycodone HCl/Acetaminophen [Percocet 10-325 mg Tablet] 1 - 2 each PO Q4H PRN # 15 tablet 05/24/17 [Rx] fentaNYL [Fentanyl] 25 mcg TD Q72H 05/24/17 [History] Zoloft 25 mg PO 1-3XD 07/13/17 [History] 3 Allergy/AdvReac Type Severity Reaction Status Date / Time phenobarbital AdvReac Intermediate hallucinati Verified 04/07/17 17:57 ons All Systems PM: A 10-system review of systems was performed and is negative for pertinent findings except as documented above in the HPI. - Constitutional Constitutional: as per HPI, anorexia, fatigue, falls, weakness, weight loss, no chills, no fever(s), no night sweats - EENT Eyes: no change in vision, no discharge, no pain, no photophobia Ears: no ear discharge, no ear pain, no tinnitus Nose, mouth and throat: no dysphagia, no nasal discharge, no neck pain, no sore throat - Breasts Breasts: as per HPI, mass (Left-sided) - Cardiovascular Cardiovascular ROS IM: as per HPI, dyspnea, dyspnea on exertion - Respiratory Respiratory: as per HPI, cough, dyspnea, dyspnea on exertion, pain with cough - Gastrointestinal Gastrointestinal: as per HPI, abdominal pain, nausea, vomiting - Genitourinary Genitourinary: no change in urinary stream, no dysuria, no flank pain, no hematuria Menstruation: as per HPI - Musculoskeletal Musculoskeletal ROS IM: as per HPI, other (Severe pain d/t advanced cancer dx) - Integumentary Integumentary IM: as per HPI, unusual bruising (UEs and LEs ), no rash - Neurological Neurological ROS: as per HPI, dizziness, frequent falls, weakness - Psychiatric Psychiatric: as per HPI, anxiety - Endocrine Endocrine IM: as per HPI - Hematologic/Lymphatic Hematologic/Lymphatic: no easy bruising - Allergic/Immunologic Allergic/Immunologic: as per HPI - Constitutional Vitals: Temp Pulse Resp BP Pulse Ox 97.5 F L 58 16 147/63 98 07/13/17 10:30 07/13/17 10:30 07/13/17 10:30 07/13/17 10:30 07/13/17 10:30 General appearance: Present: cooperative, A&O X 3, pleasant, severe distress, underweight, loss of weight, answers questions appropriately - Head Head exam: Present: normal inspection - Eye Eye exam: Present: PERRL, conjuntiva pink, sclera anicteric Pupils: Present: PERRL - ENT ENT exam: Present: normal exam - Neck Neck exam general surgery: Present: normal inspection, supple, trachea midline. Absent: lymphadenopathy - Respiratory Respiratory exam: Present: accessory muscle use, decreased breath sounds, wheezes - Cardiovascular Cardiovascular exam: Present: RRR, +S1, +S2. Absent: diastolic murmur, gallop, rubs, systolic murmur - GI/Abdominal GI/Abdominal exam: Present: normal bowel sounds, soft, no peritoneal signs. Absent: distended, tenderness - Rectal Rectal exam: Present: deferred - Additional comments: exam deferred. - Extremities Exam Extremities exam: Present: warm, radial pulses palpable and symmetrical. Absent : calf tenderness, cyanotic, pedal edema - Back Exam Back exam: Present: normal inspection - Neurological Exam Neurological exam: Present: alert, CN II-XII intact, oriented X3, no focal deficits. Absent: pronater drift, facial droop, speech deficit - Psychiatric Psychiatric exam: Present: anxious - Skin Skin exam: Present: dry, intact Internal Med - H&P Results - Labs CBC & Chem 7: 07/13/17 12:47 07/13/17 12:47 Labs: Short CBC 07/13/17 Range/Units 12:47 WBC 11.6 H (4.3-11.1) K/mcL Hgb 12.2 (11.5-15.4) g/dL Hct 36.4 (35.3-44.9) % Plt Count 269 (140-400) K/mcL Neutrophils # 7.7 (1.6-8.9) K/mcL BMP 07/13/17 12:47 Sodium 130 L Potassium 3.9 Chloride 100 Carbon Dioxide 22 BUN 25 H Creatinine 1.06 Glucose 104 H Calcium 9.0 Liver Function 07/13/17 Range/Units 12:47 Total Bilirubin 0.3 (0.2-1.2) mg/dL AST 12 (5-34) Units/L ALT < 6 (0-55) Units/L Alkaline Phosphatase 125 (38-126) Units/L Albumin 2.7 L (3.5-5.0) g/dL
[2017-07-13] MEDS: D5% in 0.9% NACL 1,000 ML IVC SCH (14:48)
--- NOTE | 2017-07-13 15:02 | Event Note ---
Date of Encounter: 07/13/17 Time of Encounter: 14:58 Patient seen and examined with nurse practitioner. Agree with assessment and plan. Suspect intractable vomiting due to opiate withdrawal. Family members are taking patients opiates. Will start the patient unscheduled pain medications symptomatic treatment for nausea. Plan for care home with hospice
[2017-07-13] MEDS: Nicotine 14 MG PATCH.TD24 TD SCH (17:46)
[2017-07-13] MEDS: Pantoprazole 40 MG VIAL IVP SCH (17:46)
[2017-07-13] MEDS: *HR* HYDROcodone/Acet 5/325 mg TABLET PO PRN ×2 (17:47→22:09)
[2017-07-13] MEDS: *HR* Morphine 2 MG/ML SYRINGE IVP SCH ×2 (19:07→23:06)
[2017-07-14] MEDS: D5% in 0.9% NACL 1,000 ML IVC SCH (03:31)
[2017-07-14] MEDS: *HR* HYDROcodone/Acet 5/325 mg TABLET PO PRN ×2 (03:39→11:05)
[2017-07-14] MEDS: *HR* Morphine 2 MG/ML SYRINGE IVP SCH ×3 (05:03→13:43)
[2017-07-14 07:31] LABS: Basophils # 0.1 K/mcL (0.0-0.2); Basophils % 0.8 %; Eosinophils # 0.3 K/mcL (0.0-0.6); Hematocrit 38.6 % (35.3-44.9); Hemoglobin 12.6 g/dL (11.5-15.4); Lymphocytes # 2.8 K/mcL (0.6-4.6); Lymphocytes % 24.8 %; Mean Corpuscular HGB Conc 32.6 g/dL (31.6-35.5); Mean Corpuscular Hemoglobin 31.6 pg (28.0-33.3); Mean Corpuscular Volume 96.7 fL (83.0-100.0); Mean Platelet Volume 9.8 fL (9.4-12.4); Monocytes # 0.6 K/mcL (0.0-1.3); Monocytes % 5.6 %; Neutrophils # 7.3 K/mcL (1.6-8.9); Platelet Count 267 K/mcL (140-400); Red Blood Count 3.99 M/mcL (3.82-4.97); Red Cell Distribution Width 14.3 % (11.5-14.5); Segmented Neutrophils % 63.8 %
[2017-07-14 07:40] LABS: INR 0.9
[2017-07-14 07:42] LABS: BUN/Creatinine Ratio 17 (6-26); Blood Urea Nitrogen 17 mg/dL (7-20); Calcium 9.1 mg/dL (8.6-10.8); Carbon Dioxide 23 mEq/L (19-29); Chloride 102 mEq/L (98-109); Glucose 125 mg/dL (70-99); Magnesium 1.6 mg/dL (1.6-2.6); Osmolality,Calculated 279 (280-300); Sodium 133 mEq/L (136-145); eGFR For African Americans > 60 (> 60); eGFR For Non-African Americans 52 (> 60)
[2017-07-14 07:43] LABS: Activated Partial Thrombo Time 29.3 Seconds (26.0-36.0)
[2017-07-14 08:05] LABS: Potassium 3.5 mEq/L (3.5-4.5)
[2017-07-14] MEDS: Anastrozole 1 MG TABLET PO SCH (10:11)
[2017-07-14] MEDS: amLODIPine 5 MG TABLET PO SCH (10:12)
[2017-07-14] MEDS: Pantoprazole 40 MG VIAL IVP SCH (10:12)
--- NOTE | 2017-07-14 11:19 | Internal Med Progress Note ---
Date of Encounter: 07/14/17 Time of Encounter: 09:25 - Assessment and plan (1) Severe pain Current Visit: Yes Status: Acute Assessment and plan: Cancer related pain. Acute on chronic. Continue current pain medication regimen as it seems to be controlling her pain better. High risk for complications due to intravenous narcotic medication use. (2) Breast cancer, left breast Current Visit: Yes Status: Chronic Assessment and plan: Continue supportive care. 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 On 3 L O2 supplementation via nasal cannula. Qualifiers: COPD type: emphysema Qualified Code(s): J43.9 - Emphysema, unspecified (4) DVT prophylaxis Current Visit: Yes Status: Acute Assessment and plan: With SCDs (5) Failure to thrive in adult Current Visit: Yes Status: Acute Assessment and plan: Supportive care. Placement to hospice (6) HTN (hypertension) Current Visit: Yes Status: Chronic Assessment and plan: Blood pressure elevated at this time. Continue amlodipine. Qualifiers: Hypertension type: essential hypertension Qualified Code(s): I10 - Essential (primary) hypertension (7) Nausea and vomiting in adult patient Current Visit: Yes Status: Acute Assessment and plan: Improving. Continue antiemetics as needed - Subjective Interval history: Patient is lying in bed. Appears comfortable. Complains of abdominal pain. Pain is controlled with current pain medication regimen. Denies any nausea or vomiting at this time. - Constitutional Vitals: Temp Pulse Resp BP Pulse Ox 97.5 F L 81 14 144/58 98 07/14/17 07:28 07/14/17 07:28 07/14/17 07:28 07/14/17 07:28 07/14/17 07:28 General appearance: Present: cooperative, mild distress, A&O X 3, pleasant, underweight, loss of weight, answers questions appropriately - Neck Neck exam general surgery: Present: supple, trachea midline. Absent: lymphadenopathy - Respiratory Respiratory exam: Present: CTAB. Absent: accessory muscle use, rales, rhonchi, wheezes - Cardiovascular Cardiovascular exam: Present: RRR, +S1, +S2. Absent: diastolic murmur, gallop, rubs, systolic murmur - GI/Abdominal GI/Abdominal exam: Present: normal bowel sounds, soft, tenderness (Generalized) , no peritoneal signs. Absent: distended - Extremities Exam Extremities exam: Present: warm, radial pulses palpable and symmetrical. Absent : calf tenderness, cyanotic, pedal edema - Neurological Exam Neurological exam: Present: alert, no focal deficits, strengths equal and symetr throughout. Absent: facial droop, speech deficit Internal Medicine: Result - Labs CBC & Chem 7: 07/14/17 06:49 07/14/17 06:49 Labs: Short CBC 07/13/17 07/14/17 Range/Units 12:47 06:49 WBC 11.6 H 11.4 H (4.3-11.1) K/mcL Hgb 12.2 12.6 (11.5-15.4) g/dL Hct 36.4 38.6 (35.3-44.9) % Plt Count 269 267 (140-400) K/mcL Neutrophils # 7.7 7.3 (1.6-8.9) K/mcL BMP 07/13/17 07/14/17 12:47 06:49 Sodium 130 L 133 L Potassium 3.9 3.5 Chloride 100 102 Carbon Dioxide 22 23 BUN 25 H 17 Creatinine 1.06 1.01 Glucose 104 H 125 H Calcium 9.0 9.1 Liver Function 07/13/17 Range/Units 12:47 Total Bilirubin 0.3 (0.2-1.2) mg/dL AST 12 (5-34) Units/L ALT < 6 (0-55) Units/L Alkaline Phosphatase 125 (38-126) Units/L Albumin 2.7 L (3.5-5.0) g/dL - ABG Interpretation ABG results: PT/INR, D-dimer PT 10.0 Seconds (9.4-12.1) 07/14/17 06:49 - Impressions Impressions Chest X-Ray 07/13/17 14:24 IMPRESSION: No evidence of acute cardiopulmonary disease. D/ / 07/13/2017 15:20:35 Marty Bill MD / Moira Rosales Interpreting Provider: Marty Bill MD Consult Discharge Plan - Plan Referrals: Ernesto Easton MD [Primary Care Provider] -
[2017-07-14] MEDS ORDERED: *HR* LORazepam 2 MG/ML VIAL IVP PRN (14:50)
[2017-07-14] MEDS: Nicotine 14 MG PATCH.TD24 TD SCH (15:43)
[2017-07-15] MEDS: *HR* Morphine 2 MG/ML SYRINGE IVP SCH ×2 (01:14→04:51)
[2017-07-15 04:55] LABS: Basophils # 0.1 K/mcL (0.0-0.2); Basophils % 0.8 %; Eosinophils # 0.5 K/mcL (0.0-0.6); Eosinophils % 3.8 %; Hematocrit 36.4 % (35.3-44.9); Hemoglobin 11.9 g/dL (11.5-15.4); Immature Granulocytes % 1.7 % (0-4); Immature Platelets 2.7 % (1.1-6.1); Lymphocytes # 2.9 K/mcL (0.6-4.6); Lymphocytes % 24.2 %; Mean Corpuscular HGB Conc 32.7 g/dL (31.6-35.5); Mean Corpuscular Hemoglobin 31.2 pg (28.0-33.3); Mean Corpuscular Volume 95.5 fL (83.0-100.0); Mean Platelet Volume 9.6 fL (9.4-12.4); Monocytes # 0.6 K/mcL (0.0-1.3); Monocytes % 5.4 %; Neutrophils # 7.5 K/mcL (1.6-8.9); Platelet Count 249 K/mcL (140-400); Red Blood Count 3.81 M/mcL (3.82-4.97); Red Cell Distribution Width 14.3 % (11.5-14.5); Segmented Neutrophils % 64.1 %
[2017-07-15] MEDS: *HR* HYDROcodone/Acet 5/325 mg TABLET PO PRN (04:55)
[2017-07-15 05:09] LABS: BUN/Creatinine Ratio 20 (6-26); Blood Urea Nitrogen 15 mg/dL (7-20); Calcium 8.9 mg/dL (8.6-10.8); Carbon Dioxide 21 mEq/L (19-29); Chloride 107 mEq/L (98-109); Glucose 89 mg/dL (70-99); Osmolality,Calculated 282 (280-300); Sodium 136 mEq/L (136-145); eGFR For African Americans > 60 (> 60); eGFR For Non-African Americans > 60 (> 60)
[2017-07-15 05:11] LABS: Potassium 3.6 mEq/L (3.5-4.5)
[2017-07-15] MEDS: *HR* OxyCODONE Immed Rel 5 MG TABLET PO PRN ×3 (06:37→21:01)
[2017-07-15] MEDS: Anastrozole 1 MG TABLET PO SCH (08:51)
[2017-07-15] MEDS: amLODIPine 5 MG TABLET PO SCH (08:52)
[2017-07-15] MEDS: *HR* FentaNYL PATCH 25 MCG PATCH TD SCH (08:54)
[2017-07-15] MEDS: Gabapentin 300 MG CAPSULE PO SCH (09:15)
[2017-07-15] MEDS: clonazePAM 1 MG TABLET PO PRN (10:20)
[2017-07-15] MEDS: Pantoprazole 40 MG VIAL IVP SCH (12:23)
[2017-07-15] MEDS: Nicotine 14 MG PATCH.TD24 TD SCH (14:26)
[2017-07-15] MEDS ORDERED: Ondansetron ODT 4 MG TAB.RAPDIS SL PRN (20:52)
[2017-07-15] MEDS: Gabapentin 400 MG CAPSULE PO SCH (21:01)
[2017-07-15] MEDS: D5% in 0.9% NACL 1,000 ML IVC SCH ×2 (21:08→21:09)
[2017-07-16] MEDS: *HR* Morphine 2 MG/ML SYRINGE IVP PRN ×4 (02:07→21:52)
[2017-07-16] MEDS: Gabapentin 300 MG CAPSULE PO SCH (07:42)
[2017-07-16] MEDS: Pantoprazole 40 MG VIAL IVP SCH (07:43)
[2017-07-16] MEDS: Anastrozole 1 MG TABLET PO SCH (07:43)
[2017-07-16] MEDS: *HR* OxyCODONE Immed Rel 5 MG TABLET PO PRN (07:44)
[2017-07-16] MEDS: amLODIPine 5 MG TABLET PO SCH (07:45)
[2017-07-16 07:51] LABS: Basophils # 0.1 K/mcL (0.0-0.2); Basophils % 0.5 %; Eosinophils # 0.5 K/mcL (0.0-0.6); Eosinophils % 2.6 %; Hematocrit 40.5 % (35.3-44.9); Hemoglobin 12.9 g/dL (11.5-15.4); Immature Granulocytes % 1.2 % (0-4); Lymphocytes # 3.4 K/mcL (0.6-4.6); Lymphocytes % 18.2 %; Mean Corpuscular HGB Conc 31.9 g/dL (31.6-35.5); Mean Corpuscular Volume 97.4 fL (83.0-100.0); Mean Platelet Volume 10.3 fL (9.4-12.4); Monocytes # 0.8 K/mcL (0.0-1.3); Monocytes % 4.2 %; Platelet Count 218 K/mcL (140-400); Red Blood Count 4.16 M/mcL (3.82-4.97); Red Cell Distribution Width 14.5 % (11.5-14.5); Segmented Neutrophils % 73.3 %
[2017-07-16 07:54] LABS: Neutrophils # 13.9 K/mcL (1.6-8.9)
[2017-07-16 07:57] LABS: BUN/Creatinine Ratio 21 (6-26); Blood Urea Nitrogen 17 mg/dL (7-20); Calcium 9.7 mg/dL (8.6-10.8); Carbon Dioxide 24 mEq/L (19-29); Chloride 105 mEq/L (98-109); Glucose 94 mg/dL (70-99); Osmolality,Calculated 285 (280-300); Potassium 3.7 mEq/L (3.5-4.5); Sodium 137 mEq/L (136-145); eGFR For African Americans > 60 (> 60); eGFR For Non-African Americans > 60 (> 60)
[2017-07-16] MEDS ORDERED: levoFLOXacin 750 MG TABLET PO SCH (11:45)
[2017-07-16] MEDS: clonazePAM 1 MG TABLET PO PRN (13:24)
[2017-07-16] MEDS: Nicotine 14 MG PATCH.TD24 TD SCH (13:24)
[2017-07-16] MEDS: Gabapentin 400 MG CAPSULE PO SCH (21:44)
[2017-07-16] MEDS: Melatonin 3 MG TABLET PO SCH (21:44)
--- NOTE | 2017-07-16 23:09 | Internal Med Progress Note ---
Date of Encounter: 07/16/17 Time of Encounter: 13:46 - Assessment and plan (1) SOB (shortness of breath) Current Visit: Yes Status: Acute Assessment and plan: SOB unchanged, now has productive cough and course breath sounds on lung exam. Leukocytosis seen today's labs. Not febrile. Repeat chest x-ray, obtain blood, sputum cultures, urinary antigens, procalcitonin, lactic acid. Empirically treat for pneumonia with Levaquin. Repeat labs in AM. (2) Severe pain Current Visit: Yes Status: Acute Assessment and plan: Cancer related pain. Acute on chronic. Continue current pain medication regimen as it seems to be controlling her pain better. High risk for complications due to intravenous narcotic medication use. (3) Colon cancer Current Visit: No Status: Acute Qualifiers: Colon location: unspecified part of colon Qualified Code(s): C18.9 - Malignant neoplasm of colon, unspecified (4) Breast cancer Current Visit: No Status: Chronic Qualifiers: Breast location: areola Estrogen receptor status: unspecified Patient sex : female Laterality: left Qualified Code(s): 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, left female breast (5) COPD exacerbation Current Visit: No Status: Chronic (6) Metastatic cancer Current Visit: Yes Status: Chronic - Subjective Interval history: No acute events. Pain is improved. Still unsure as to why she was having symptoms. Does admit to shortness of breath with cough and sputum. - Constitutional Vitals: Temp Pulse Resp BP Pulse Ox 98.0 F 75 16 101/50 99 07/16/17 19:35 07/16/17 19:35 07/16/17 19:35 07/16/17 19:35 07/16/17 19:35 General appearance: Present: cooperative, mild distress, A&O X 3, pleasant, underweight, loss of weight, answers questions appropriately Exam: CVS: RRR Lungs: Course breath sounds, rales and transmitted upper airway congestion. Ext: no edema, no cyanosis. Internal Medicine: Result - Labs CBC & Chem 7: 07/16/17 07:34 07/16/17 07:34 Labs: Short CBC 07/16/17 Range/Units 07:34 WBC 18.9 H D (4.3-11.1) K/mcL Hgb 12.9 (11.5-15.4) g/dL Hct 40.5 (35.3-44.9) % Plt Count 218 (140-400) K/mcL Neutrophils # 13.9 H (1.6-8.9) K/mcL BMP 07/16/17 07:34 Sodium 137 Potassium 3.7 Chloride 105 Carbon Dioxide 24 BUN 17 Creatinine 0.82 Glucose 94 Calcium 9.7 - ABG Interpretation ABG results: PT/INR, D-dimer PT 10.0 Seconds (9.4-12.1) 07/14/17 06:49 - Impressions Impressions Chest X-Ray 07/16/17 11:43 IMPRESSION: 1. Interval appearance since 07/13/2017 of a dense retrocardiac opacity with small effusion. Differential considerations include infection versus atelectasis. 2. COPD. D/ /16/2017 12:45:12 Yulisa Rogers MD / [facility] Interpreting Provider: Yulisa Rogers MD Consult Discharge Plan - Plan Referrals: Ernesto Easton MD [Primary Care Provider] -
[2017-07-17 05:51] LABS: Basophils # 0.1 K/mcL (0.0-0.2); Basophils % 0.3 %; Eosinophils # 0.1 K/mcL (0.0-0.6); Eosinophils % 0.2 %; Hematocrit 32.5 % (35.3-44.9); Immature Granulocytes % 2.5 % (0-4); Lymphocytes # 1.6 K/mcL (0.6-4.6); Lymphocytes % 6.5 %; Mean Corpuscular HGB Conc 33.8 g/dL (31.6-35.5); Mean Corpuscular Hemoglobin 31.8 pg (28.0-33.3); Mean Corpuscular Volume 93.9 fL (83.0-100.0); Mean Platelet Volume 10.3 fL (9.4-12.4); Monocytes # 1.2 K/mcL (0.0-1.3); Neutrophils # 21.2 K/mcL (1.6-8.9); Platelet Count 151 K/mcL (140-400); Red Blood Count 3.46 M/mcL (3.82-4.97); Red Cell Distribution Width 14.2 % (11.5-14.5); Segmented Neutrophils % 85.5 %
[2017-07-17] MEDS: *HR* Morphine 2 MG/ML SYRINGE IVP PRN (05:51)
[2017-07-17 06:11] LABS: Calcium 8.8 mg/dL (8.6-10.8); Potassium 4.3 mEq/L (3.5-4.5)
[2017-07-17 06:24] LABS: Platelet Estimate Normal (Normal)
[2017-07-17] MEDS: amLODIPine 5 MG TABLET PO SCH (08:42)
[2017-07-17] MEDS: Gabapentin 300 MG CAPSULE PO SCH ×2 (08:58→21:11)
[2017-07-17] MEDS: Anastrozole 1 MG TABLET PO SCH (08:59)
[2017-07-17] MEDS: Pantoprazole 40 MG VIAL IVP SCH (09:01)
[2017-07-17] MEDS ORDERED: Vancomycin 500 MG in D5% in Water 250 ML IVPB STA (09:19)
[2017-07-17] MEDS ORDERED: 0.9 % Sodium Chloride 1,000 ML IVC ONE (09:22)
[2017-07-17] MEDS ORDERED: Piperacillin/Tazobactam 3.375 GM in D5% in Water 50 ML IVPB STA ×2 (09:24→09:27)
[2017-07-17] MEDS ORDERED: 0.9 % Sodium Chloride 1,000 ML IVC SCH (09:30)
[2017-07-17] MEDS ORDERED: Vancomycin 750 MG in D5% in Water 250 ML IVPB SCH (10:00)
[2017-07-17] MEDS: predniSONE 20 MG TABLET PO SCH (11:11)
[2017-07-17] MEDS ORDERED: clonazePAM 1 MG TABLET PO PRN (11:59)
[2017-07-17] MEDS ORDERED: *HR* Morphine 2 MG/ML SYRINGE IVP PRN (12:02)
[2017-07-17] MEDS: Nicotine 14 MG PATCH.TD24 TD SCH (15:02)
[2017-07-17 17:08] LABS: ABG Base Excess -3 mEq/L (-2 to 3); ABG HCO3 22 mEq/L (21-27); ABG Oxygen Saturation 92 % (95-98); ABG PCO2 38 mmHg (35-45); ABG PH 7.37 pH Units (7.32-7.45); ABG PO2 65 mmHg (85-104); ABG TCO2 23 mEq/L (20-26)
[2017-07-17] MEDS: Piperacillin/Tazobactam 3.375 GM in D5% in Water 50 ML IVPB SCH (18:46)
[2017-07-17] MEDS: Melatonin 3 MG TABLET PO SCH (21:11)
[2017-07-18] MEDS: *HR* OxyCODONE Immed Rel 5 MG TABLET PO PRN ×3 (04:56→17:43)
[2017-07-18] MEDS: Piperacillin/Tazobactam 3.375 GM in D5% in Water 50 ML IVPB SCH ×2 (04:57→17:41)
[2017-07-18 06:55] LABS: Basophils % 0.1 %; Eosinophils # 0.2 K/mcL (0.0-0.6); Eosinophils % 0.9 %; Hematocrit 28.9 % (35.3-44.9); Hemoglobin 9.6 g/dL (11.5-15.4); Immature Granulocytes % 1.6 % (0-4); Lymphocytes # 1.6 K/mcL (0.6-4.6); Lymphocytes % 9.6 %; Mean Corpuscular HGB Conc 33.2 g/dL (31.6-35.5); Mean Corpuscular Hemoglobin 31.6 pg (28.0-33.3); Mean Corpuscular Volume 95.1 fL (83.0-100.0); Mean Platelet Volume 10.5 fL (9.4-12.4); Monocytes # 0.7 K/mcL (0.0-1.3); Monocytes % 4.4 %; Neutrophils # 13.8 K/mcL (1.6-8.9); Platelet Count 137 K/mcL (140-400); Red Blood Count 3.04 M/mcL (3.82-4.97); Red Cell Distribution Width 14.2 % (11.5-14.5); Segmented Neutrophils % 83.4 %
[2017-07-18 07:11] LABS: BUN/Creatinine Ratio 27 (6-26); Blood Urea Nitrogen 24 mg/dL (7-20); Calcium 8.9 mg/dL (8.6-10.8); Carbon Dioxide 23 mEq/L (19-29); Chloride 106 mEq/L (98-109); Glucose 110 mg/dL (70-99); Osmolality,Calculated 287 (280-300); Sodium 136 mEq/L (136-145); eGFR For African Americans > 60 (> 60); eGFR For Non-African Americans 60 (> 60)
[2017-07-18] MEDS: Gabapentin 300 MG CAPSULE PO SCH ×2 (08:28→20:24)
[2017-07-18] MEDS: Anastrozole 1 MG TABLET PO SCH (08:28)
[2017-07-18] MEDS: predniSONE 20 MG TABLET PO SCH (08:28)
[2017-07-18] MEDS: *HR* FentaNYL PATCH 25 MCG PATCH TD SCH (08:28)
[2017-07-18] MEDS ORDERED: Vancomycin 750 MG in D5% in Water 250 ML IVPB ONE (10:00)
[2017-07-18 13:01] LABS: Hemoglobin A1C 5.3 %
[2017-07-18] MEDS: Acetaminophen 325 MG TABLET PO PRN (15:04)
[2017-07-18] MEDS: Nicotine 14 MG PATCH.TD24 TD SCH (15:06)
[2017-07-18] MEDS: Insulin LISPRO 300 UNITS/3 ML VIAL SQ SCH (17:42)
[2017-07-18] MEDS: Melatonin 3 MG TABLET PO SCH (20:24)
--- NOTE | 2017-07-18 23:15 | Internal Med Progress Note ---
Date of Encounter: 07/17/17 Time of Encounter: 10:17 - Assessment and plan (1) Sepsis Current Visit: No Status: Resolved Assessment and plan: Broaden coverage to Vanc Zosyn, renally dosed as she does have YOLANDA today. Monitor vitals Q1H until normal, then Q2H, Q4H 1 L IVF, patient high risk for volume overload, will give fluids after bolus judiciously. Follow-up parker cultures obtained. Qualifiers: Sepsis type: sepsis due to unspecified organism Qualified Code(s): A41.9 - Sepsis, unspecified organism (2) Hypotension Current Visit: Yes Status: Acute Assessment and plan: Due to sepsis and opiates. She has responded to 1 L bolus well and started stat Vanc/Zosyn. We are weaning her pain medication daily. So far she has not complained of pain. Qualifiers: Hypotension type: unspecified hypotension type Qualified Code(s): I95.9 - Hypotension, unspecified (3) SOB (shortness of breath) Current Visit: Yes Status: Acute Assessment and plan: SOB unchanged, now has productive cough and course breath sounds on lung exam. Leukocytosis seen today's labs. Not febrile. Repeat chest x-ray, obtain blood, sputum cultures, urinary antigens, procalcitonin, lactic acid. Empirically treat for pneumonia with Levaquin. Repeat labs in AM. (4) Severe pain Current Visit: Yes Status: Acute Assessment and plan: Cancer related pain. Acute on chronic. Continue current pain medication regimen as it seems to be controlling her pain better. High risk for complications due to intravenous narcotic medication use. (5) Colon cancer Current Visit: No Status: Acute Qualifiers: Colon location: unspecified part of colon Qualified Code(s): C18.9 - Malignant neoplasm of colon, unspecified (6) Breast cancer Current Visit: No Status: Chronic Qualifiers: Breast location: areola Estrogen receptor status: unspecified Patient sex : female Laterality: left Qualified Code(s): 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, left female breast (7) COPD exacerbation Current Visit: No Status: Chronic (8) Metastatic cancer Current Visit: Yes Status: Chronic (9) DVT prophylaxis Current Visit: Yes Status: Acute Assessment and plan: With SCDs (10) COPD (chronic obstructive pulmonary disease) Current Visit: Yes Status: Chronic Assessment and plan: Use bronchodilators as needed. On 3 L O2 supplementation via nasal cannula. Qualifiers: COPD type: emphysema Qualified Code(s): J43.9 - Emphysema, unspecified (11) HTN (hypertension) Current Visit: Yes Status: Chronic Assessment and plan: Medication Norvasc was held when patient was hypotensive. Qualifiers: Hypertension type: essential hypertension Qualified Code(s): I10 - Essential (primary) hypertension (12) Acute respiratory failure Current Visit: Yes Status: Acute Qualifiers: Respiratory failure complication: hypoxia Qualified Code(s): J96.01 - Acute respiratory failure with hypoxia - Subjective Interval history: She had leukocytosis with shortness of breath yesterday prompting empiric treatment with levaquin. Today patient SOB persistant and WBCs dramatically increased. She was afebrile. - Constitutional Vitals: Temp Pulse Resp BP Pulse Ox 98.2 F 67 14 106/48 91 07/18/17 22:59 07/18/17 22:59 07/18/17 22:59 07/18/17 22:59 07/18/17 22:59 General appearance: Present: cooperative, mild distress, A&O X 3, pleasant, underweight, loss of weight, answers questions appropriately Exam: CVS: RRR Lungs: fine rales, good air exchange, no labored breathing, no wheezing Abd: nt/nd Ext: no edema Internal Medicine: Result - Labs CBC & Chem 7: 07/18/17 06:45 07/18/17 06:45 Labs: Short CBC 07/18/17 Range/Units 06:45 WBC 16.5 H (4.3-11.1) K/mcL Hgb 9.6 L (11.5-15.4) g/dL Hct 28.9 L (35.3-44.9) % Plt Count 137 L (140-400) K/mcL Neutrophils # 13.8 H (1.6-8.9) K/mcL BMP 07/18/17 06:45 Sodium 136 Potassium 4.0 Chloride 106 Carbon Dioxide 23 BUN 24 H Creatinine 0.89 Glucose 110 H Calcium 8.9 - ABG Interpretation ABG results: ABG ABG pH 7.37 pH Units (7.32-7.45) 07/17/17 17:06 ABG pCO2 38 mmHg (35-45) 07/17/17 17:06 ABG pO2 65 mmHg (85-104) L 07/17/17 17:06 ABG O2 Saturation 92 % (95-98) L 07/17/17 17:06 PT/INR, D-dimer PT 10.0 Seconds (9.4-12.1) 07/14/17 06:49 - VTE Documentation of Mechanical Device: Graduated compression elastic hosiery Consult Discharge Plan - Plan Referrals: Ernesto Easton MD [Primary Care Provider] -
--- NOTE | 2017-07-18 23:30 | Internal Med Progress Note ---
Date of Encounter: 07/18/17 Time of Encounter: 12:03 - Assessment and plan (1) Barrier to discharge Current Visit: Yes Status: Acute Assessment and plan: Patient was septic secondary to pneumonia and also needs weaned of such load of opiate medications that were dangerously low for her. Midline to be placed today. (2) Sepsis Current Visit: No Status: Resolved Assessment and plan: Continue Vanc Zosyn, renally dosed as she does have YOLANDA today. Monitor vitals Q1H until normal, then Q2H, Q4H 1 L IVF, patient high risk for volume overload, will give fluids after bolus judiciously. Follow-up parker cultures obtained. Needs further monitoring given medical complications. Qualifiers: Sepsis type: sepsis due to unspecified organism Qualified Code(s): A41.9 - Sepsis, unspecified organism (3) Hypotension Current Visit: Yes Status: Acute Qualifiers: Hypotension type: unspecified hypotension type Qualified Code(s): I95.9 - Hypotension, unspecified (4) SOB (shortness of breath) Current Visit: Yes Status: Acute Assessment and plan: SOB unchanged, now has productive cough and course breath sounds on lung exam. Leukocytosis seen today's labs. Not febrile. Repeat chest x-ray, obtain blood, sputum cultures, urinary antigens, procalcitonin, lactic acid. Empirically treat for pneumonia with Levaquin. Repeat labs in AM. (5) Severe pain Current Visit: Yes Status: Acute Assessment and plan: Cancer related pain. Acute on chronic. Continue current pain medication regimen as it seems to be controlling her pain better. High risk for complications due to intravenous narcotic medication use. 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, left female breast (8) COPD exacerbation Current Visit: No Status: Chronic (9) Metastatic cancer Current Visit: Yes Status: Chronic (10) DVT prophylaxis Current Visit: Yes Status: Acute (11) COPD (chronic obstructive pulmonary disease) Current Visit: Yes Status: Chronic Qualifiers: COPD type: emphysema Qualified Code(s): J43.9 - Emphysema, unspecified (12) HTN (hypertension) Current Visit: Yes Status: Chronic Qualifiers: Hypertension type: essential hypertension Qualified Code(s): I10 - Essential (primary) hypertension (13) Acute respiratory failure Current Visit: Yes Status: Acute Qualifiers: Respiratory failure complication: hypoxia Qualified Code(s): J96.01 - Acute respiratory failure with hypoxia (14) Acute kidney injury Current Visit: Yes Status: Resolved Assessment and plan: Was secondary to sepsis and opiates. Broadened coverage, gentle IV hydration, and weaning optiates have seemed to show near complete resolution. Based on her CrCl, she still needs renally dosed medications. (15) Hyperglycemia Current Visit: Yes Status: Acute Assessment and plan: Likely secondary to corticosteroids. However, range was as high as 200-300s. Will get A1C to evaluate if patient has undiagnosed diabetes. Start diabetic diet, ISS, sugar check AC and HS - Subjective Interval history: Significantly better than yesterday. She does not complain of breakthrough pain. Denies fevers/chills, SOB, n/v, diarrhea. - Constitutional Vitals: Temp Pulse Resp BP Pulse Ox 98.2 F 67 14 106/48 91 07/18/17 22:59 07/18/17 22:59 07/18/17 22:59 07/18/17 22:59 07/18/17 22:59 General appearance: Present: cooperative, mild distress, A&O X 3, pleasant, underweight, loss of weight, answers questions appropriately Exam: CVS: RRR Lungs: improved air exchange, without wheezing, rales, rhonchi ext: no edema. Internal Medicine: Result - Labs CBC & Chem 7: 07/18/17 06:45 07/18/17 06:45 Labs: Short CBC 07/18/17 Range/Units 06:45 WBC 16.5 H (4.3-11.1) K/mcL Hgb 9.6 L (11.5-15.4) g/dL Hct 28.9 L (35.3-44.9) % Plt Count 137 L (140-400) K/mcL Neutrophils # 13.8 H (1.6-8.9) K/mcL BMP 07/18/17 06:45 Sodium 136 Potassium 4.0 Chloride 106 Carbon Dioxide 23 BUN 24 H Creatinine 0.89 Glucose 110 H Calcium 8.9 - ABG Interpretation ABG results: ABG ABG pH 7.37 pH Units (7.32-7.45) 07/17/17 17:06 ABG pCO2 38 mmHg (35-45) 07/17/17 17:06 ABG pO2 65 mmHg (85-104) L 07/17/17 17:06 ABG O2 Saturation 92 % (95-98) L 07/17/17 17:06 PT/INR, D-dimer PT 10.0 Seconds (9.4-12.1) 07/14/17 06:49 - VTE Documentation of Mechanical Device: Graduated compression elastic hosiery Consult Discharge Plan - Plan Referrals: Ernesto Easton MD [Primary Care Provider] -
[2017-07-19] MEDS: *HR* OxyCODONE Immed Rel 5 MG TABLET PO PRN ×3 (00:26→22:36)
[2017-07-19 04:18] LABS: Basophils % 0.2 %; Eosinophils # 0.3 K/mcL (0.0-0.6); Eosinophils % 2.3 %; Hematocrit 26.1 % (35.3-44.9); Hemoglobin 8.8 g/dL (11.5-15.4); Lymphocytes # 2.1 K/mcL (0.6-4.6); Lymphocytes % 15.7 %; Mean Corpuscular HGB Conc 33.7 g/dL (31.6-35.5); Mean Corpuscular Hemoglobin 32.2 pg (28.0-33.3); Mean Corpuscular Volume 95.6 fL (83.0-100.0); Monocytes # 0.7 K/mcL (0.0-1.3); Monocytes % 4.9 %; Platelet Count 134 K/mcL (140-400); Red Blood Count 2.73 M/mcL (3.82-4.97); Red Cell Distribution Width 14.4 % (11.5-14.5); Segmented Neutrophils % 75.9 %
[2017-07-19 04:29] LABS: BUN/Creatinine Ratio 26 (6-26); Blood Urea Nitrogen 23 mg/dL (7-20); Calcium 8.9 mg/dL (8.6-10.8); Carbon Dioxide 25 mEq/L (19-29); Chloride 105 mEq/L (98-109); Glucose 113 mg/dL (70-99); Osmolality,Calculated 284 (280-300); Potassium 4.2 mEq/L (3.5-4.5); Sodium 135 mEq/L (136-145); eGFR For African Americans > 60 (> 60); eGFR For Non-African Americans 60 (> 60)
[2017-07-19] MEDS ORDERED: Vancomycin 750 MG in D5% in Water 250 ML IVPB ONE (07:00)
[2017-07-19 08:01] LABS: Procalcitonin 0.13 ng/mL (<=0.10)
[2017-07-19 08:15] LABS: Mycoplasma pneumoniae IgG 0.43 U/L (<=0.09)
[2017-07-19] MEDS: predniSONE 20 MG TABLET PO SCH (08:55)
[2017-07-19] MEDS: Anastrozole 1 MG TABLET PO SCH (08:55)
[2017-07-19] MEDS: Gabapentin 300 MG CAPSULE PO SCH ×2 (08:56→20:40)
[2017-07-19] MEDS: Piperacillin/Tazobactam 3.375 GM in D5% in Water 50 ML IVPB SCH ×2 (09:17→16:24)
[2017-07-19] MEDS: Insulin LISPRO 300 UNITS/3 ML VIAL SQ SCH ×3 (10:06→16:58)
[2017-07-19 12:49] LABS: Hematocrit 30.9 % (35.3-44.9); Hemoglobin 10.2 g/dL (11.5-15.4)
[2017-07-19] MEDS: Nicotine 14 MG PATCH.TD24 TD SCH (14:24)
[2017-07-19] MEDS: Melatonin 3 MG TABLET PO SCH (20:40)
[2017-07-19] MEDS: Acetaminophen 325 MG TABLET PO PRN (21:30)
[2017-07-20] MEDS: Piperacillin/Tazobactam 3.375 GM in D5% in Water 50 ML IVPB SCH ×3 (00:24→18:23)
[2017-07-20 04:51] LABS: Basophils % 0.4 %; Eosinophils # 0.3 K/mcL (0.0-0.6); Eosinophils % 2.9 %; Hematocrit 28.1 % (35.3-44.9); Hemoglobin 9.2 g/dL (11.5-15.4); Immature Granulocytes % 0.8 % (0-4); Lymphocytes # 2.4 K/mcL (0.6-4.6); Lymphocytes % 25.6 %; Mean Corpuscular HGB Conc 32.7 g/dL (31.6-35.5); Mean Corpuscular Hemoglobin 31.1 pg (28.0-33.3); Mean Corpuscular Volume 94.9 fL (83.0-100.0); Monocytes # 0.6 K/mcL (0.0-1.3); Monocytes % 6.2 %; Neutrophils # 6.1 K/mcL (1.6-8.9); Platelet Count 123 K/mcL (140-400); Red Blood Count 2.96 M/mcL (3.82-4.97); Red Cell Distribution Width 14.6 % (11.5-14.5); Segmented Neutrophils % 64.1 %
[2017-07-20 05:03] LABS: BUN/Creatinine Ratio 30 (6-26); Blood Urea Nitrogen 24 mg/dL (7-20); Calcium 8.6 mg/dL (8.6-10.8); Carbon Dioxide 24 mEq/L (19-29); Chloride 105 mEq/L (98-109); Glucose 95 mg/dL (70-99); Osmolality,Calculated 286 (280-300); Potassium 4.2 mEq/L (3.5-4.5); Sodium 136 mEq/L (136-145); eGFR For African Americans > 60 (> 60); eGFR For Non-African Americans > 60 (> 60)
[2017-07-20] MEDS ORDERED: Vancomycin 750 MG in D5% in Water 250 ML IVPB ONE (07:00)
[2017-07-20] MEDS: Insulin LISPRO 300 UNITS/3 ML VIAL SQ SCH ×3 (08:28→16:09)
[2017-07-20] MEDS: *HR* OxyCODONE Immed Rel 5 MG TABLET PO PRN ×2 (08:38→20:42)
[2017-07-20] MEDS: predniSONE 20 MG TABLET PO SCH (09:22)
[2017-07-20] MEDS: Gabapentin 300 MG CAPSULE PO SCH ×2 (09:22→20:42)
[2017-07-20] MEDS: Anastrozole 1 MG TABLET PO SCH (09:23)
[2017-07-20] MEDS: Nicotine 14 MG PATCH.TD24 TD SCH (14:41)
[2017-07-20] MEDS: clonazePAM 0.5 MG TABLET PO PRN ×2 (16:19→20:42)
[2017-07-20] MEDS: Melatonin 3 MG TABLET PO SCH (20:42)
[2017-07-21] MEDS: Piperacillin/Tazobactam 3.375 GM in D5% in Water 50 ML IVPB SCH ×3 (00:15→17:01)
[2017-07-21 05:55] LABS: Basophils # 0.1 K/mcL (0.0-0.2); Basophils % 0.8 %; Eosinophils # 0.3 K/mcL (0.0-0.6); Eosinophils % 3.9 %; Hematocrit 30.7 % (35.3-44.9); Hemoglobin 10.1 g/dL (11.5-15.4); Immature Granulocytes % 1.2 % (0-4); Lymphocytes # 2.7 K/mcL (0.6-4.6); Lymphocytes % 32.4 %; Mean Corpuscular HGB Conc 32.9 g/dL (31.6-35.5); Mean Corpuscular Hemoglobin 31.7 pg (28.0-33.3); Mean Corpuscular Volume 96.2 fL (83.0-100.0); Mean Platelet Volume 10.6 fL (9.4-12.4); Monocytes # 0.8 K/mcL (0.0-1.3); Monocytes % 9.2 %; Neutrophils # 4.4 K/mcL (1.6-8.9); Platelet Count 155 K/mcL (140-400); Red Blood Count 3.19 M/mcL (3.82-4.97); Red Cell Distribution Width 14.6 % (11.5-14.5); Segmented Neutrophils % 52.5 %
[2017-07-21 06:25] LABS: BUN/Creatinine Ratio 25 (6-26); Blood Urea Nitrogen 23 mg/dL (7-20); Calcium 9.1 mg/dL (8.6-10.8); Carbon Dioxide 23 mEq/L (19-29); Chloride 106 mEq/L (98-109); Glucose 90 mg/dL (70-99); Osmolality,Calculated 285 (280-300); Potassium 4.2 mEq/L (3.5-4.5); Sodium 136 mEq/L (136-145); eGFR For African Americans > 60 (> 60); eGFR For Non-African Americans 57 (> 60)
[2017-07-21] MEDS: *HR* FentaNYL PATCH 25 MCG PATCH TD SCH (09:06)
[2017-07-21] MEDS: Anastrozole 1 MG TABLET PO SCH (09:08)
[2017-07-21] MEDS: Gabapentin 300 MG CAPSULE PO SCH ×2 (09:08→21:23)
[2017-07-21] MEDS: Insulin LISPRO 300 UNITS/3 ML VIAL SQ SCH ×3 (11:29→17:05)
[2017-07-21] MEDS: clonazePAM 0.5 MG TABLET PO PRN (11:35)
[2017-07-21] MEDS ORDERED: Vancomycin 750 MG in D5% in Water 250 ML IVPB ONE ×2 (12:00→16:30)
[2017-07-21] MEDS: Nicotine 14 MG PATCH.TD24 TD SCH (16:57)
[2017-07-21] MEDS: *HR* OxyCODONE Immed Rel 5 MG TABLET PO PRN (17:55)
[2017-07-21] MEDS: Melatonin 3 MG TABLET PO SCH (21:23)
--- NOTE | 2017-07-21 23:59 | Internal Med Progress Note ---
Date of Encounter: 07/19/17 Time of Encounter: 11:57 - Assessment and plan (1) Barrier to discharge Current Visit: Yes Status: Acute Assessment and plan: Has midline for discharge with IV antibiotics. Pending placement. (2) Sepsis Current Visit: No Status: Resolved Assessment and plan: Continue Vancomycin, Zosyn. Qualifiers: Sepsis type: methicillin resistant Staphylococcus aureus Qualified Code(s) : A41.02 - Sepsis due to Methicillin resistant Staphylococcus aureus (3) Severe pain Current Visit: Yes Status: Acute Assessment and plan: Cancer related pain. Acute on chronic. Continue current pain medication regimen as it seems to be controlling her pain better. High risk for complications due to intravenous narcotic medication use. 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, left female breast (6) COPD exacerbation Current Visit: No Status: Chronic (7) Metastatic cancer Current Visit: Yes Status: Chronic (8) DVT prophylaxis Current Visit: Yes Status: Acute (9) COPD (chronic obstructive pulmonary disease) Current Visit: Yes Status: Chronic Qualifiers: COPD type: emphysema Qualified Code(s): J43.9 - Emphysema, unspecified (10) HTN (hypertension) Current Visit: Yes Status: Chronic Qualifiers: Hypertension type: essential hypertension Qualified Code(s): I10 - Essential (primary) hypertension (11) Acute respiratory failure Current Visit: Yes Status: Acute Qualifiers: Respiratory failure complication: hypoxia Qualified Code(s): J96.01 - Acute respiratory failure with hypoxia (12) Acute kidney injury Current Visit: Yes Status: Resolved (13) Hyperglycemia Current Visit: Yes Status: Acute - Subjective Interval history: No complaints, no acute events. Denies fevers/chills, SOB, n/v, diarrhea. - Constitutional Vitals: Temp Pulse Resp BP Pulse Ox 97.5 F L 70 16 145/76 98 07/21/17 19:20 07/21/17 19:20 07/21/17 19:20 07/21/17 19:20 07/21/17 21:11 General appearance: Present: cachectic, cooperative, A&O X 3, underweight, answers questions appropriately Exam: CVS: RRR Lungs: Course breath sounds, rales and transmitted upper airway congestion. Ext: no edema, no cyanosis. Internal Medicine: Result - Labs CBC & Chem 7: 07/21/17 05:49 07/21/17 05:49 Labs: Short CBC 07/21/17 Range/Units 05:49 WBC 8.3 (4.3-11.1) K/mcL Hgb 10.1 L (11.5-15.4) g/dL Hct 30.7 L (35.3-44.9) % Plt Count 155 (140-400) K/mcL Neutrophils # 4.4 (1.6-8.9) K/mcL BMP 07/21/17 05:49 Sodium 136 Potassium 4.2 Chloride 106 Carbon Dioxide 23 BUN 23 H Creatinine 0.93 Glucose 90 Calcium 9.1 - ABG Interpretation ABG results: ABG ABG pH 7.37 pH Units (7.32-7.45) 07/17/17 17:06 ABG pCO2 38 mmHg (35-45) 07/17/17 17:06 ABG pO2 65 mmHg (85-104) L 07/17/17 17:06 ABG O2 Saturation 92 % (95-98) L 07/17/17 17:06 PT/INR, D-dimer PT 10.0 Seconds (9.4-12.1) 07/14/17 06:49 - VTE Documentation of Mechanical Device: Intermittent pneumatic compression device Consult Discharge Plan - Plan Referrals: Ernesto Easton MD [Primary Care Provider] -
--- NOTE | 2017-07-22 00:04 | Internal Med Progress Note ---
Date of Encounter: 07/20/17 Time of Encounter: 12:02 - Assessment and plan (1) Barrier to discharge Current Visit: Yes Status: Acute Assessment and plan: Has midline for discharge with IV antibiotics. Pending placement. (2) Sepsis Current Visit: No Status: Resolved Assessment and plan: Continue Vancomycin, Zosyn. Qualifiers: Sepsis type: methicillin resistant Staphylococcus aureus Qualified Code(s) : A41.02 - Sepsis due to Methicillin resistant Staphylococcus aureus (3) Severe pain Current Visit: Yes Status: Acute Assessment and plan: Cancer related pain. Acute on chronic. Continue current pain medication regimen as it seems to be controlling her pain better. High risk for complications due to intravenous narcotic medication use. 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, left female breast (6) COPD exacerbation Current Visit: No Status: Chronic (7) Metastatic cancer Current Visit: Yes Status: Chronic (8) DVT prophylaxis Current Visit: Yes Status: Acute (9) COPD (chronic obstructive pulmonary disease) Current Visit: Yes Status: Chronic Qualifiers: COPD type: emphysema Qualified Code(s): J43.9 - Emphysema, unspecified (10) HTN (hypertension) Current Visit: Yes Status: Chronic Qualifiers: Hypertension type: essential hypertension Qualified Code(s): I10 - Essential (primary) hypertension (11) Acute respiratory failure Current Visit: Yes Status: Acute Qualifiers: Respiratory failure complication: hypoxia Qualified Code(s): J96.01 - Acute respiratory failure with hypoxia (12) Acute kidney injury Current Visit: Yes Status: Resolved (13) Hyperglycemia Current Visit: Yes Status: Acute - Subjective Interval history: No complaints, no acute events. Denies fevers/chills, SOB, n/v, diarrhea. - Constitutional Vitals: Temp Pulse Resp BP Pulse Ox 97.5 F L 70 16 145/76 98 07/21/17 19:20 07/21/17 19:20 07/21/17 19:20 07/21/17 19:20 07/21/17 21:11 General appearance: Present: cachectic, cooperative, A&O X 3, underweight, answers questions appropriately Exam: CVS: RRR Lungs: Course breath sounds Ext: no edema, no cyanosis. Internal Medicine: Result - Labs CBC & Chem 7: 07/21/17 05:49 07/21/17 05:49 Labs: Short CBC 07/21/17 Range/Units 05:49 WBC 8.3 (4.3-11.1) K/mcL Hgb 10.1 L (11.5-15.4) g/dL Hct 30.7 L (35.3-44.9) % Plt Count 155 (140-400) K/mcL Neutrophils # 4.4 (1.6-8.9) K/mcL BMP 07/21/17 05:49 Sodium 136 Potassium 4.2 Chloride 106 Carbon Dioxide 23 BUN 23 H Creatinine 0.93 Glucose 90 Calcium 9.1 - ABG Interpretation ABG results: ABG ABG pH 7.37 pH Units (7.32-7.45) 07/17/17 17:06 ABG pCO2 38 mmHg (35-45) 07/17/17 17:06 ABG pO2 65 mmHg (85-104) L 07/17/17 17:06 ABG O2 Saturation 92 % (95-98) L 07/17/17 17:06 PT/INR, D-dimer PT 10.0 Seconds (9.4-12.1) 07/14/17 06:49 - VTE Documentation of Mechanical Device: Intermittent pneumatic compression device Consult Discharge Plan - Plan Referrals: Ernesto Easton MD [Primary Care Provider] -
--- NOTE | 2017-07-22 00:06 | Internal Med Progress Note ---
Date of Encounter: 07/21/17 Time of Encounter: 12:18 - Assessment and plan (1) Barrier to discharge Current Visit: Yes Status: Acute Assessment and plan: Pending placement. Midline has been placed for discharge with IV antibiotics. (2) Sepsis Current Visit: No Status: Resolved Assessment and plan: Continue Vancomycin, Zosyn. Consider discontinue Zosyn when patient discharged. Qualifiers: Sepsis type: methicillin resistant Staphylococcus aureus Qualified Code(s) : A41.02 - Sepsis due to Methicillin resistant Staphylococcus aureus (3) Severe pain Current Visit: Yes Status: Acute Assessment and plan: Cancer related pain. Acute on chronic. Continue current pain medication regimen as it seems to be controlling her pain better. High risk for complications due to intravenous narcotic medication use. 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, left female breast (6) COPD exacerbation Current Visit: No Status: Chronic (7) Metastatic cancer Current Visit: Yes Status: Chronic (8) DVT prophylaxis Current Visit: Yes Status: Acute (9) COPD (chronic obstructive pulmonary disease) Current Visit: Yes Status: Chronic Qualifiers: COPD type: emphysema Qualified Code(s): J43.9 - Emphysema, unspecified (10) HTN (hypertension) Current Visit: Yes Status: Chronic Qualifiers: Hypertension type: essential hypertension Qualified Code(s): I10 - Essential (primary) hypertension (11) Acute respiratory failure Current Visit: Yes Status: Acute Qualifiers: Respiratory failure complication: hypoxia Qualified Code(s): J96.01 - Acute respiratory failure with hypoxia (12) Acute kidney injury Current Visit: Yes Status: Resolved (13) Hyperglycemia Current Visit: Yes Status: Acute - Subjective Interval history: No complaints, no acute events. - Constitutional Vitals: Temp Pulse Resp BP Pulse Ox 97.5 F L 70 16 145/76 98 07/21/17 19:20 07/21/17 19:20 07/21/17 19:20 07/21/17 19:20 07/21/17 21:11 General appearance: Present: cachectic, cooperative, A&O X 3, underweight, answers questions appropriately Exam: CVS: RRR Lungs: Course breath sounds, rales and transmitted upper airway congestion. Ext: no edema, no cyanosis. Internal Medicine: Result - Labs CBC & Chem 7: 07/21/17 05:49 07/21/17 05:49 Labs: Short CBC 07/21/17 Range/Units 05:49 WBC 8.3 (4.3-11.1) K/mcL Hgb 10.1 L (11.5-15.4) g/dL Hct 30.7 L (35.3-44.9) % Plt Count 155 (140-400) K/mcL Neutrophils # 4.4 (1.6-8.9) K/mcL BMP 07/21/17 05:49 Sodium 136 Potassium 4.2 Chloride 106 Carbon Dioxide 23 BUN 23 H Creatinine 0.93 Glucose 90 Calcium 9.1 - ABG Interpretation ABG results: ABG ABG pH 7.37 pH Units (7.32-7.45) 07/17/17 17:06 ABG pCO2 38 mmHg (35-45) 07/17/17 17:06 ABG pO2 65 mmHg (85-104) L 07/17/17 17:06 ABG O2 Saturation 92 % (95-98) L 07/17/17 17:06 PT/INR, D-dimer PT 10.0 Seconds (9.4-12.1) 07/14/17 06:49 - VTE Documentation of Mechanical Device: Intermittent pneumatic compression device Consult Discharge Plan - Plan Referrals: Ernesto Easton MD [Primary Care Provider] -
[2017-07-22] MEDS: Piperacillin/Tazobactam 3.375 GM in D5% in Water 50 ML IVPB SCH ×2 (01:07→10:24)
[2017-07-22] MEDS: Insulin LISPRO 300 UNITS/3 ML VIAL SQ SCH ×3 (07:52→17:25)
[2017-07-22] MEDS ORDERED: Vancomycin 500 MG in D5% in Water 100 ML IVPB ONE (09:00)
[2017-07-22] MEDS: Gabapentin 300 MG CAPSULE PO SCH ×2 (09:51→19:59)
[2017-07-22] MEDS: Anastrozole 1 MG TABLET PO SCH (09:51)
[2017-07-22] MEDS: *HR* OxyCODONE Immed Rel 5 MG TABLET PO PRN ×2 (09:51→17:30)
[2017-07-22] MEDS: Acetaminophen 325 MG TABLET PO PRN (12:55)
[2017-07-22] MEDS ORDERED: Vancomycin 500 MG in D5% in Water (Mini-Bag+) 100 ML IVPB ONE (14:00)
[2017-07-22] MEDS: Nicotine 14 MG PATCH.TD24 TD SCH (15:33)
[2017-07-22] MEDS: Melatonin 3 MG TABLET PO SCH (19:59)
[2017-07-22] MEDS: clonazePAM 0.5 MG TABLET PO PRN (19:59)
[2017-07-23] MEDS: *HR* OxyCODONE Immed Rel 5 MG TABLET PO PRN ×2 (01:57→20:04)
[2017-07-23] MEDS: Acetaminophen 325 MG TABLET PO PRN (02:31)
--- NOTE | 2017-07-23 05:53 | Internal Med Progress Note ---
Date of Encounter: 07/22/17 Time of Encounter: 11:51 - Assessment and plan (1) Barrier to discharge Current Visit: Yes Status: Acute Assessment and plan: Pending placement. Continue current pain and anxiety medications Midline has been placed for discharge with IV antibiotics. Vancomycin started on 07/17. Covering for MRSA pneumonia, patient briefly was septic while here. (2) Sepsis Current Visit: No Status: Resolved Assessment and plan: Continue Vancomycin (started 07/17) Discontinue Zosyn. Qualifiers: Sepsis type: methicillin resistant Staphylococcus aureus Qualified Code(s) : A41.02 - Sepsis due to Methicillin resistant Staphylococcus aureus (3) Severe pain Current Visit: Yes Status: Acute Assessment and plan: Chronic cancer related pain. Continue current pain medication regimen as it seems to be controlling her pain better. High risk for complications due to intravenous narcotic medication use. 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, left female breast (6) COPD exacerbation Current Visit: No Status: Chronic (7) Metastatic cancer Current Visit: Yes Status: Chronic (8) DVT prophylaxis Current Visit: Yes Status: Acute (9) COPD (chronic obstructive pulmonary disease) Current Visit: Yes Status: Chronic Qualifiers: COPD type: emphysema Qualified Code(s): J43.9 - Emphysema, unspecified (10) HTN (hypertension) Current Visit: Yes Status: Chronic Qualifiers: Hypertension type: essential hypertension Qualified Code(s): I10 - Essential (primary) hypertension (11) Acute respiratory failure Current Visit: Yes Status: Acute Qualifiers: Respiratory failure complication: hypoxia Qualified Code(s): J96.01 - Acute respiratory failure with hypoxia (12) Acute kidney injury Current Visit: Yes Status: Resolved (13) Hyperglycemia Current Visit: Yes Status: Acute - Subjective Interval history: No complaints, no acute events. - Constitutional Vitals: Temp Pulse Resp BP Pulse Ox 97.8 F 60 12 121/57 93 07/23/17 03:36 07/23/17 03:36 07/23/17 03:36 07/23/17 03:36 07/23/17 03:36 General appearance: Present: cachectic, cooperative, A&O X 3, underweight, answers questions appropriately Exam: CVS: RRR Lungs: Course breath sounds Ext: no edema, no cyanosis. Internal Medicine: Result - Labs CBC & Chem 7: 07/21/17 05:49 07/21/17 05:49 - ABG Interpretation ABG results: ABG ABG pH 7.37 pH Units (7.32-7.45) 07/17/17 17:06 ABG pCO2 38 mmHg (35-45) 07/17/17 17:06 ABG pO2 65 mmHg (85-104) L 07/17/17 17:06 ABG O2 Saturation 92 % (95-98) L 07/17/17 17:06 PT/INR, D-dimer PT 10.0 Seconds (9.4-12.1) 07/14/17 06:49 - VTE Documentation of Mechanical Device: Intermittent pneumatic compression device Consult Discharge Plan - Plan Referrals: Ernesto Easton MD [Primary Care Provider] -
--- NOTE | 2017-07-23 07:34 | Internal Med Progress Note ---
Date of Encounter: 07/15/17 Time of Encounter: 08:50 - Assessment and plan (1) Severe pain Current Visit: Yes Status: Acute Assessment and plan: Continue current management with pain meds. delinquency prevention social worker working on placement (2) Breast cancer, left breast Current Visit: Yes Status: Chronic Assessment and plan: Continue supportive care. 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, left female breast (3) COPD (chronic obstructive pulmonary disease) Current Visit: Yes Status: Chronic Assessment and plan: Bronchodilators as needed Qualifiers: COPD type: emphysema Qualified Code(s): J43.9 - Emphysema, unspecified (4) DVT prophylaxis Current Visit: Yes Status: Acute (5) Failure to thrive in adult Current Visit: Yes Status: Acute Assessment and plan: Placement to hospice (6) HTN (hypertension) Current Visit: Yes Status: Chronic Qualifiers: Hypertension type: essential hypertension Qualified Code(s): I10 - Essential (primary) hypertension (7) Nausea and vomiting in adult patient Current Visit: Yes Status: Acute Assessment and plan: improving. COntinue antiemetics as needed - Subjective Interval history: Patient is lying in bed. Appears comfortable. Complains of abdominal pain. Reamins controlled with current pain meds - Constitutional Vitals: Temp Pulse Resp BP Pulse Ox 97.8 F 60 12 121/57 93 07/23/17 03:36 07/23/17 03:36 07/23/17 03:36 07/23/17 03:36 07/23/17 03:36 General appearance: Present: cachectic, cooperative, A&O X 3, underweight, answers questions appropriately - Cardiovascular Cardiovascular exam: Present: RRR, +S1, +S2. Absent: diastolic murmur, gallop, rubs, systolic murmur - GI/Abdominal GI/Abdominal exam: Present: normal bowel sounds, soft, tenderness (abdominal), no peritoneal signs. Absent: distended - Extremities Exam Extremities exam: Present: warm, radial pulses palpable and symmetrical. Absent : calf tenderness, cyanotic, pedal edema Internal Medicine: Result - Labs CBC & Chem 7: 07/21/17 05:49 07/21/17 05:49 - ABG Interpretation ABG results: ABG ABG pH 7.37 pH Units (7.32-7.45) 07/17/17 17:06 ABG pCO2 38 mmHg (35-45) 07/17/17 17:06 ABG pO2 65 mmHg (85-104) L 07/17/17 17:06 ABG O2 Saturation 92 % (95-98) L 07/17/17 17:06 PT/INR, D-dimer PT 10.0 Seconds (9.4-12.1) 07/14/17 06:49 - VTE Documentation of Mechanical Device: Intermittent pneumatic compression device Consult Discharge Plan - Plan Referrals: Ernesto Easton MD [Primary Care Provider] -
[2017-07-23] MEDS: Anastrozole 1 MG TABLET PO SCH (07:51)
[2017-07-23] MEDS: Gabapentin 300 MG CAPSULE PO SCH ×2 (07:51→20:03)
[2017-07-23] MEDS: Insulin LISPRO 300 UNITS/3 ML VIAL SQ SCH ×3 (07:54→16:28)
[2017-07-23] MEDS: Vancomycin 750 MG in D5% in Water 250 ML IVPB SCH (12:38)
[2017-07-23] MEDS ORDERED: Ondansetron ODT 4 MG TAB.RAPDIS SL PRN (15:10)
[2017-07-23] MEDS: Nicotine 14 MG PATCH.TD24 TD SCH (15:15)
--- NOTE | 2017-07-23 16:21 | Internal Med Progress Note ---
Date of Encounter: 07/23/17 Time of Encounter: 10:40 - Assessment and plan (1) Sepsis Current Visit: Yes Status: Resolved Assessment and plan: Sputum culture positive for MRSA. We will complete treatment course with vancomycin for a total of 14 days. Qualifiers: Sepsis type: methicillin resistant Staphylococcus aureus Qualified Code(s) : A41.02 - Sepsis due to Methicillin resistant Staphylococcus aureus (2) Pneumonia Current Visit: Yes Status: Acute Assessment and plan: Per chest x-ray done on 07/16/17. On IV vancomycin. Sputum culture positive for MRSA. Complete 14 day course Qualifiers: Pneumonia type: due to methicillin-resistant Staphylococcus aureus (MRSA) Laterality: left Lung location: lower lobe of lung Qualified Code(s): J15.212 - Pneumonia due to Methicillin resistant Staphylococcus aureus (3) Severe pain Current Visit: Yes Status: Acute Assessment and plan: Cancer related pain. Pain well controlled with current medication regimen. 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 (8) HTN (hypertension) Current Visit: Yes Status: Chronic Assessment and plan: Blood pressure is well controlled Qualifiers: Hypertension type: essential hypertension Qualified Code(s): I10 - Essential (primary) hypertension (9) Nausea and vomiting in adult patient Current Visit: Yes Status: Acute Assessment and plan: Will treat symptomatically. (10) COPD exacerbation Current Visit: Yes Status: Chronic Assessment and plan: Continue bronchodilators as needed. (11) Metastatic cancer Current Visit: Yes Status: Chronic (12) Acute respiratory failure Current Visit: Yes Status: Acute Assessment and plan: Continue O2 supplementation to keep sats greater than 88% Qualifiers: Respiratory failure complication: hypoxia Qualified Code(s): J96.01 - Acute respiratory failure with hypoxia (13) Barrier to discharge Current Visit: Yes Status: Acute Assessment and plan: Pending Medicaid. print binding and finishing worker working on placement. (14) Anxiety Current Visit: Yes Status: Chronic Assessment and plan: Continue Klonopin as needed - Subjective Interval history: Patient lying in bed. Appears comfortable. However displaced increased anxiety impeding with her ability to sleep. Denies any fever or chills. Continues to have abdominal pain and back pain. - Constitutional Vitals: Temp Pulse Resp BP Pulse Ox 97.5 F L 74 18 134/54 99 07/23/17 16:11 07/23/17 16:11 07/23/17 16:11 07/23/17 16:11 07/23/17 16:11 General appearance: Present: cachectic, cooperative, A&O X 3, underweight, answers questions appropriately - Neck Neck exam general surgery: Present: supple, trachea midline. Absent: lymphadenopathy - Respiratory Respiratory exam: Present: CTAB. Absent: accessory muscle use, rales, rhonchi, wheezes - Cardiovascular Cardiovascular exam: Present: RRR, +S1, +S2. Absent: diastolic murmur, gallop, rubs, systolic murmur - GI/Abdominal GI/Abdominal exam: Present: normal bowel sounds, soft, tenderness (Mild generalized), no peritoneal signs. Absent: distended Internal Medicine: Result - Labs CBC & Chem 7: 07/21/17 05:49 07/21/17 05:49 - ABG Interpretation ABG results: ABG ABG pH 7.37 pH Units (7.32-7.45) 07/17/17 17:06 ABG pCO2 38 mmHg (35-45) 07/17/17 17:06 ABG pO2 65 mmHg (85-104) L 07/17/17 17:06 ABG O2 Saturation 92 % (95-98) L 07/17/17 17:06 PT/INR, D-dimer PT 10.0 Seconds (9.4-12.1) 07/14/17 06:49 - VTE Documentation of Mechanical Device: Intermittent pneumatic compression device Consult Discharge Plan - Plan Referrals: Ernesto Easton MD [Primary Care Provider] -
[2017-07-23] MEDS: Melatonin 3 MG TABLET PO SCH (20:04)
[2017-07-24] MEDS: *HR* OxyCODONE Immed Rel 5 MG TABLET PO PRN ×3 (02:23→20:35)
[2017-07-24] MEDS: Insulin LISPRO 300 UNITS/3 ML VIAL SQ SCH ×3 (08:16→17:03)
[2017-07-24] MEDS: *HR* FentaNYL PATCH 25 MCG PATCH TD SCH (09:38)
[2017-07-24] MEDS: Anastrozole 1 MG TABLET PO SCH (09:39)
[2017-07-24] MEDS: Vancomycin 750 MG in D5% in Water 250 ML IVPB SCH (09:39)
[2017-07-24] MEDS: Gabapentin 300 MG CAPSULE PO SCH ×2 (09:39→20:34)
--- NOTE | 2017-07-24 13:20 | Internal Med Progress Note ---
Date of Encounter: 07/24/17 Time of Encounter: 09:50 - Assessment and plan (1) Sepsis Current Visit: Yes Status: Resolved Assessment and plan: Due to MRSA pneumonia. Continue vancomycin Qualifiers: Sepsis type: methicillin resistant Staphylococcus aureus Qualified Code(s) : A41.02 - Sepsis due to Methicillin resistant Staphylococcus aureus (2) Pneumonia Current Visit: Yes Status: Acute Assessment and plan: Needs 6 more days of IV antibiotics. Recovering well. Qualifiers: Pneumonia type: due to methicillin-resistant Staphylococcus aureus (MRSA) Laterality: left Lung location: lower lobe of lung Qualified Code(s): J15.212 - Pneumonia due to Methicillin resistant Staphylococcus aureus (3) Severe pain Current Visit: Yes Status: Acute Assessment and plan: Due to metastatic cancer. Continue current pain medication regimen. gum worker working on placement. 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 Qualifiers: COPD type: emphysema Qualified Code(s): J43.9 - Emphysema, unspecified (6) DVT prophylaxis Current Visit: Yes Status: Acute Assessment and plan: With SCDs (7) Failure to thrive in adult Current Visit: Yes Status: Acute Assessment and plan: gum worker working on placement. (8) HTN (hypertension) Current Visit: Yes Status: Chronic Assessment and plan: Well-controlled Qualifiers: Hypertension type: essential hypertension Qualified Code(s): I10 - Essential (primary) hypertension (9) Nausea and vomiting in adult patient Current Visit: Yes Status: Acute Assessment and plan: Symptomatic treatment with Zofran as needed (10) COPD exacerbation Current Visit: Yes Status: Chronic (11) Metastatic cancer Current Visit: Yes Status: Chronic (12) Acute respiratory failure Current Visit: Yes Status: Acute Qualifiers: Respiratory failure complication: hypoxia Qualified Code(s): J96.01 - Acute respiratory failure with hypoxia (13) Barrier to discharge Current Visit: Yes Status: Acute (14) Anxiety Current Visit: Yes Status: Chronic - Subjective Interval history: Patient is lying in bed. Appears comfortable. No new complaints at this time. Pain is well controlled. She wishes to go home but understands her home situation is not conducive to her being on narcotic medications. - Constitutional Vitals: Temp Pulse Resp BP Pulse Ox 97.3 F L 75 16 130/67 94 07/24/17 11:02 07/24/17 11:02 07/24/17 11:02 07/24/17 11:02 07/24/17 11:02 General appearance: Present: cachectic, cooperative, A&O X 3, underweight, answers questions appropriately - Respiratory Respiratory exam: Present: CTAB. Absent: accessory muscle use, rales, rhonchi, wheezes - Cardiovascular Cardiovascular exam: Present: RRR, +S1, +S2. Absent: diastolic murmur, gallop, rubs, systolic murmur - GI/Abdominal GI/Abdominal exam: Present: normal bowel sounds, soft, tenderness (Mild generalized), no peritoneal signs. Absent: distended Internal Medicine: Result - Labs CBC & Chem 7: 07/21/17 05:49 07/21/17 05:49 - ABG Interpretation ABG results: ABG ABG pH 7.37 pH Units (7.32-7.45) 07/17/17 17:06 ABG pCO2 38 mmHg (35-45) 07/17/17 17:06 ABG pO2 65 mmHg (85-104) L 07/17/17 17:06 ABG O2 Saturation 92 % (95-98) L 07/17/17 17:06 PT/INR, D-dimer PT 10.0 Seconds (9.4-12.1) 07/14/17 06:49 - VTE Documentation of Mechanical Device: Intermittent pneumatic compression device Consult Discharge Plan - Plan Referrals: Ernesto Easton MD [Primary Care Provider] -
[2017-07-24 13:29] LABS: BUN/Creatinine Ratio 36 (6-26); Blood Urea Nitrogen 25 mg/dL (7-20); Calcium 9.5 mg/dL (8.6-10.8); Carbon Dioxide 26 mEq/L (19-29); Chloride 104 mEq/L (98-109); Glucose 81 mg/dL (70-99); Osmolality,Calculated 285 (280-300); Potassium 4.8 mEq/L (3.5-4.5); Sodium 136 mEq/L (136-145); eGFR For African Americans > 60 (> 60); eGFR For Non-African Americans > 60 (> 60)
[2017-07-24] MEDS: Nicotine 14 MG PATCH.TD24 TD SCH (15:46)
[2017-07-24] MEDS: Acetaminophen 325 MG TABLET PO PRN (15:47)
[2017-07-24] MEDS: *HR* Heparin 5,000 UNIT/ML VIAL SQ SCH (17:23)
[2017-07-24] MEDS: Melatonin 3 MG TABLET PO SCH (20:34)
[2017-07-24] MEDS: clonazePAM 0.5 MG TABLET PO PRN (20:35)
[2017-07-25] MEDS: *HR* OxyCODONE Immed Rel 5 MG TABLET PO PRN ×2 (04:47→11:19)
[2017-07-25] MEDS: *HR* Heparin 5,000 UNIT/ML VIAL SQ SCH ×2 (04:48→18:48)
[2017-07-25] MEDS: Insulin LISPRO 300 UNITS/3 ML VIAL SQ SCH ×3 (10:13→19:45)
[2017-07-25] MEDS: Gabapentin 300 MG CAPSULE PO SCH ×2 (10:13→20:49)
[2017-07-25] MEDS: Anastrozole 1 MG TABLET PO SCH (10:13)
[2017-07-25] MEDS: Vancomycin 750 MG in D5% in Water 250 ML IVPB SCH ×2 (10:14→12:27)
--- NOTE | 2017-07-25 16:04 | Internal Med Progress Note ---
Date of Encounter: 07/25/17 Time of Encounter: 13:00 - Assessment and plan (1) Pneumonia Current Visit: Yes Status: Acute Assessment and plan: Continue vancomycin. Qualifiers: Pneumonia type: due to methicillin-resistant Staphylococcus aureus (MRSA) Laterality: left Lung location: lower lobe of lung Qualified Code(s): J15.212 - Pneumonia due to Methicillin resistant Staphylococcus aureus (2) Sepsis Current Visit: Yes Status: Resolved Qualifiers: Sepsis type: methicillin resistant Staphylococcus aureus Qualified Code(s) : A41.02 - Sepsis due to Methicillin resistant Staphylococcus aureus (3) Severe pain Current Visit: Yes Status: Acute Assessment and plan: Continue current pain management. Awaiting placement to skilled rehabilitation for hospice. production worker on board. 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, left female breast (5) COPD (chronic obstructive pulmonary disease) Current Visit: Yes Status: Chronic Assessment and plan: On bronchodilators as needed Qualifiers: COPD type: emphysema Qualified Code(s): J43.9 - Emphysema, unspecified (6) DVT prophylaxis Current Visit: Yes Status: Acute Assessment and plan: With subcutaneous heparin (7) Failure to thrive in adult Current Visit: Yes Status: Acute Assessment and plan: Continue oral supplements (8) HTN (hypertension) Current Visit: Yes Status: Chronic Assessment and plan: Well-controlled Qualifiers: Hypertension type: essential hypertension Qualified Code(s): I10 - Essential (primary) hypertension (9) Nausea and vomiting in adult patient Current Visit: Yes Status: Acute Assessment and plan: Antiemetics as needed (10) COPD exacerbation Current Visit: Yes Status: Resolved (11) Metastatic cancer Current Visit: Yes Status: Chronic Assessment and plan: Awaiting placement to hospice (12) Acute respiratory failure Current Visit: Yes Status: Resolved Assessment and plan: On 2 L nasal cannula supplementation Qualifiers: Respiratory failure complication: hypoxia Qualified Code(s): J96.01 - Acute respiratory failure with hypoxia (13) Barrier to discharge Current Visit: Yes Status: Acute Assessment and plan: Pending insurance authorization (14) Anxiety Current Visit: Yes Status: Chronic Assessment and plan: Continue Klonopin as needed - Subjective Interval history: Patient complaining of pain in her back. Wants to go home. Again discussed with her the reasons for her continued stay here. Explained to her that she could be discharged home but she will not be able to get her pain medications. At that point she said she would just go home and take Tylenol and knows how to get pain medications. I explained to her that I will have the director social come to discuss with her further. - Constitutional Vitals: Temp Pulse Resp BP Pulse Ox 97.9 F 63 18 130/55 98 07/25/17 12:13 07/25/17 12:13 07/25/17 12:13 07/25/17 12:13 07/25/17 12:13 General appearance: Present: cachectic, cooperative, A&O X 3, underweight, answers questions appropriately - Respiratory Respiratory exam: Present: CTAB. Absent: accessory muscle use, rales, rhonchi, wheezes - Cardiovascular Cardiovascular exam: Present: RRR, +S1, +S2. Absent: diastolic murmur, gallop, rubs, systolic murmur - GI/Abdominal GI/Abdominal exam: Present: normal bowel sounds, soft, tenderness (Generalized) , no peritoneal signs. Absent: distended - Extremities Exam Extremities exam: Present: warm, radial pulses palpable and symmetrical. Absent : calf tenderness, cyanotic, pedal edema - Neurological Exam Neurological exam: Present: alert, oriented X3, no focal deficits. Absent: facial droop, speech deficit - Skin Skin exam: Present: dry, intact Internal Medicine: Result - Labs CBC & Chem 7: 07/21/17 05:49 07/24/17 13:10 - ABG Interpretation ABG results: ABG ABG pH 7.37 pH Units (7.32-7.45) 07/17/17 17:06 ABG pCO2 38 mmHg (35-45) 07/17/17 17:06 ABG pO2 65 mmHg (85-104) L 07/17/17 17:06 ABG O2 Saturation 92 % (95-98) L 07/17/17 17:06 PT/INR, D-dimer PT 10.0 Seconds (9.4-12.1) 07/14/17 06:49 - VTE Documentation of Mechanical Device: Graduated compression elastic hosiery Consult Discharge Plan - Plan Referrals: Ernesto Easton MD [Primary Care Provider] -
[2017-07-25] MEDS: Nicotine 14 MG PATCH.TD24 TD SCH (16:39)
[2017-07-25] MEDS: Melatonin 3 MG TABLET PO SCH (20:49)
[2017-07-26] MEDS: *HR* OxyCODONE Immed Rel 5 MG TABLET PO PRN ×3 (03:04→22:15)
[2017-07-26] MEDS: clonazePAM 0.5 MG TABLET PO PRN ×2 (05:30→23:41)
[2017-07-26] MEDS: Acetaminophen 325 MG TABLET PO PRN (05:30)
[2017-07-26] MEDS: *HR* Heparin 5,000 UNIT/ML VIAL SQ SCH ×2 (05:31→19:05)
[2017-07-26] MEDS: Gabapentin 300 MG CAPSULE PO SCH ×2 (09:12→22:15)
[2017-07-26] MEDS: Vancomycin 750 MG in D5% in Water 250 ML IVPB SCH (09:12)
[2017-07-26] MEDS: Anastrozole 1 MG TABLET PO SCH (09:12)
[2017-07-26] MEDS: Insulin LISPRO 300 UNITS/3 ML VIAL SQ SCH ×3 (12:57→19:04)
[2017-07-26] MEDS: Nicotine 14 MG PATCH.TD24 TD SCH (14:12)
--- NOTE | 2017-07-26 14:39 | Internal Med Progress Note ---
Date of Encounter: 07/26/17 Time of Encounter: 14:37 - Assessment and plan (1) Pneumonia Current Visit: Yes Status: Acute Assessment and plan: Continue vancomycin. Last dose will be on Saturday07/29/17. Qualifiers: Pneumonia type: due to methicillin-resistant Staphylococcus aureus (MRSA) Laterality: left Lung location: lower lobe of lung Qualified Code(s): J15.212 - Pneumonia due to Methicillin resistant Staphylococcus aureus (2) Sepsis Current Visit: Yes Status: Resolved Qualifiers: Sepsis type: methicillin resistant Staphylococcus aureus Qualified Code(s) : A41.02 - Sepsis due to Methicillin resistant Staphylococcus aureus (3) Severe pain Current Visit: Yes Status: Acute Assessment and plan: Pain appears to be well controlled. 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 Was elevated earlier this morning but has since improved Qualifiers: Hypertension type: essential hypertension Qualified Code(s): I10 - Essential (primary) hypertension (9) Nausea and vomiting in adult patient Current Visit: Yes Status: Acute Assessment and plan: Continue symptomatic treatment. (10) COPD exacerbation Current Visit: Yes Status: Resolved (11) Metastatic cancer Current Visit: Yes Status: Chronic Assessment and plan: Patient is DNR [facility]/DNI. Awaiting placement to skilled rehabilitation for possible hospice (12) Acute respiratory failure Current Visit: Yes Status: Resolved Qualifiers: Respiratory failure complication: hypoxia Qualified Code(s): J96.01 - Acute respiratory failure with hypoxia (13) Barrier to discharge Current Visit: Yes Status: Acute Assessment and plan: Awaiting placement. Pending Medicaid approval (14) Anxiety Current Visit: Yes Status: Chronic Assessment and plan: Continue Clonazepam - Subjective Interval history: Patient doing well overall. No acute issues overnight. Awaiting placement. - Constitutional Vitals: Temp Pulse Resp BP Pulse Ox 97.1 F L 53 16 120/54 98 07/26/17 08:12 07/26/17 08:12 07/26/17 08:12 07/26/17 08:12 07/26/17 08:12 General appearance: Present: cachectic, cooperative, A&O X 3, underweight, answers questions appropriately - Neck Neck exam general surgery: Present: supple, trachea midline. Absent: lymphadenopathy - Respiratory Respiratory exam: Present: CTAB. Absent: accessory muscle use, rales, rhonchi, wheezes - Cardiovascular Cardiovascular exam: Present: RRR, +S1, +S2. Absent: diastolic murmur, gallop, rubs, systolic murmur - GI/Abdominal GI/Abdominal exam: Present: normal bowel sounds, soft, no peritoneal signs. Absent: distended, tenderness Internal Medicine: Result - Labs CBC & Chem 7: 07/21/17 05:49 07/24/17 13:10 - ABG Interpretation ABG results: ABG ABG pH 7.37 pH Units (7.32-7.45) 07/17/17 17:06 ABG pCO2 38 mmHg (35-45) 07/17/17 17:06 ABG pO2 65 mmHg (85-104) L 07/17/17 17:06 ABG O2 Saturation 92 % (95-98) L 07/17/17 17:06 PT/INR, D-dimer PT 10.0 Seconds (9.4-12.1) 07/14/17 06:49 - VTE Documentation of Mechanical Device: Graduated compression elastic hosiery Consult Discharge Plan - Plan Referrals: Ernesto Easton MD [Primary Care Provider] -
[2017-07-26] MEDS: Melatonin 3 MG TABLET PO SCH (22:16)
[2017-07-27] MEDS: *HR* Heparin 5,000 UNIT/ML VIAL SQ SCH ×2 (05:36→16:29)
[2017-07-27] MEDS: *HR* OxyCODONE Immed Rel 5 MG TABLET PO PRN ×3 (06:45→19:50)
[2017-07-27] MEDS: Gabapentin 300 MG CAPSULE PO SCH ×2 (09:27→19:50)
[2017-07-27] MEDS: Anastrozole 1 MG TABLET PO SCH (09:27)
[2017-07-27] MEDS: *HR* FentaNYL PATCH 25 MCG PATCH TD SCH (09:27)
[2017-07-27] MEDS: Insulin LISPRO 300 UNITS/3 ML VIAL SQ SCH ×3 (09:29→17:05)
[2017-07-27] MEDS: Vancomycin 750 MG in D5% in Water 250 ML IVPB SCH (09:30)
[2017-07-27 09:51] LABS: BUN/Creatinine Ratio 48 (6-26); Blood Urea Nitrogen 32 mg/dL (7-20); Carbon Dioxide 27 mEq/L (19-29); Chloride 104 mEq/L (98-109); Glucose 100 mg/dL (70-99); Sodium 137 mEq/L (136-145); eGFR For African Americans > 60 (> 60); eGFR For Non-African Americans > 60 (> 60)
[2017-07-27 09:52] LABS: Calcium 9.6 mg/dL (8.6-10.8); Osmolality,Calculated 291 (280-300)
[2017-07-27] MEDS: Acetaminophen 325 MG TABLET PO PRN (12:01)
[2017-07-27] MEDS: Nicotine 14 MG PATCH.TD24 TD SCH (16:29)
--- NOTE | 2017-07-27 16:35 | Internal Med Progress Note ---
Date of Encounter: 07/27/17 Time of Encounter: 11:00 - Assessment and plan (1) Pneumonia Current Visit: Yes Status: Acute Assessment and plan: Continue vancomycin until Saturday. Clinically improving. Awaiting placement to skilled rehabilitation. Pending Medicaid. Qualifiers: Pneumonia type: due to methicillin-resistant Staphylococcus aureus (MRSA) Laterality: left Lung location: lower lobe of lung Qualified Code(s): J15.212 - Pneumonia due to Methicillin resistant Staphylococcus aureus (2) Sepsis Current Visit: Yes Status: Resolved Qualifiers: Sepsis type: methicillin resistant Staphylococcus aureus Qualified Code(s) : A41.02 - Sepsis due to Methicillin resistant Staphylococcus aureus (3) Severe pain Current Visit: Yes Status: Acute (4) Breast cancer, left breast Current Visit: Yes Status: Chronic Qualifiers: Breast location: combined nipple and areola Estrogen receptor status: unspecified Patient sex: female Qualified Code(s): 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, left female breast (5) COPD (chronic obstructive pulmonary disease) Current Visit: Yes Status: Chronic Qualifiers: COPD type: emphysema Qualified Code(s): J43.9 - Emphysema, unspecified (6) DVT prophylaxis Current Visit: Yes Status: Acute (7) Failure to thrive in adult Current Visit: Yes Status: Acute (8) HTN (hypertension) Current Visit: Yes Status: Chronic Qualifiers: Hypertension type: essential hypertension Qualified Code(s): I10 - Essential (primary) hypertension (9) Nausea and vomiting in adult patient Current Visit: Yes Status: Acute (10) COPD exacerbation Current Visit: Yes Status: Resolved (11) Metastatic cancer Current Visit: Yes Status: Chronic (12) Acute respiratory failure Current Visit: Yes Status: Resolved Qualifiers: Respiratory failure complication: hypoxia Qualified Code(s): J96.01 - Acute respiratory failure with hypoxia (13) Barrier to discharge Current Visit: Yes Status: Acute (14) Anxiety Current Visit: Yes Status: Chronic - Subjective Interval history: Complains of pain. Controlled with pain medications that she is currently receiving. No other complaints at this time - Constitutional Vitals: Temp Pulse Resp BP Pulse Ox 97.7 F 71 18 114/48 97 07/27/17 15:28 07/27/17 15:28 07/27/17 15:28 07/27/17 15:28 07/27/17 15:28 General appearance: Present: cachectic, cooperative, A&O X 3, underweight, answers questions appropriately - Neurological Exam Neurological exam: Present: alert, oriented X3, no focal deficits. Absent: facial droop, speech deficit Internal Medicine: Result - Labs CBC & Chem 7: 07/21/17 05:49 07/27/17 09:31 Labs: BMP 07/27/17 09:31 Sodium 137 Potassium 5.0 H Chloride 104 Carbon Dioxide 27 BUN 32 H Creatinine 0.66 Glucose 100 H Calcium 9.6 - ABG Interpretation ABG results: ABG ABG pH 7.37 pH Units (7.32-7.45) 07/17/17 17:06 ABG pCO2 38 mmHg (35-45) 07/17/17 17:06 ABG pO2 65 mmHg (85-104) L 07/17/17 17:06 ABG O2 Saturation 92 % (95-98) L 07/17/17 17:06 PT/INR, D-dimer PT 10.0 Seconds (9.4-12.1) 07/14/17 06:49 - VTE Documentation of Mechanical Device: Graduated compression elastic hosiery Consult Discharge Plan - Plan Referrals: Ernesto Easton MD [Primary Care Provider] -
[2017-07-27] MEDS: Melatonin 3 MG TABLET PO SCH (19:50)
[2017-07-27] MEDS: clonazePAM 0.5 MG TABLET PO PRN (19:54)
[2017-07-28] MEDS: Acetaminophen 325 MG TABLET PO PRN (00:34)
[2017-07-28] MEDS: *HR* OxyCODONE Immed Rel 5 MG TABLET PO PRN ×4 (01:51→20:06)
[2017-07-28] MEDS: *HR* Heparin 5,000 UNIT/ML VIAL SQ SCH ×2 (06:14→17:17)
[2017-07-28] MEDS: Insulin LISPRO 300 UNITS/3 ML VIAL SQ SCH ×3 (08:49→16:02)
[2017-07-28] MEDS: Anastrozole 1 MG TABLET PO SCH (09:00)
[2017-07-28] MEDS: Vancomycin 750 MG in D5% in Water 250 ML IVPB SCH (09:00)
[2017-07-28] MEDS: Gabapentin 300 MG CAPSULE PO SCH ×2 (09:00→20:05)
[2017-07-28] MEDS: clonazePAM 0.5 MG TABLET PO PRN ×2 (09:09→20:06)
--- NOTE | 2017-07-28 10:18 | Internal Med Progress Note ---
Date of Encounter: 07/28/17 Time of Encounter: 10:16 - Assessment and plan (1) Pneumonia Current Visit: Yes Status: Acute Assessment and plan: Due to MRSA. Patient will complete antibiotic course tomorrow. Awaiting placement to [facility] for hospice. Qualifiers: Pneumonia type: due to methicillin-resistant Staphylococcus aureus (MRSA) Laterality: left Lung location: lower lobe of lung Qualified Code(s): J15.212 - Pneumonia due to Methicillin resistant Staphylococcus aureus (2) Sepsis Current Visit: Yes Status: Resolved Qualifiers: Sepsis type: methicillin resistant Staphylococcus aureus Qualified Code(s) : A41.02 - Sepsis due to Methicillin resistant Staphylococcus aureus (3) Severe pain Current Visit: Yes Status: Acute Assessment and plan: Pain controlled with current medication regimen. 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 We will treat with bronchodilators Qualifiers: COPD type: emphysema Qualified Code(s): J43.9 - Emphysema, unspecified (6) DVT prophylaxis Current Visit: Yes Status: Acute (7) Failure to thrive in adult Current Visit: Yes Status: Acute (8) HTN (hypertension) Current Visit: Yes Status: Chronic Assessment and plan: Well-controlled Qualifiers: Hypertension type: essential hypertension Qualified Code(s): I10 - Essential (primary) hypertension (9) Nausea and vomiting in adult patient Current Visit: Yes Status: Acute (10) Metastatic cancer Current Visit: Yes Status: Chronic (11) Acute respiratory failure Current Visit: Yes Status: Resolved Qualifiers: Respiratory failure complication: hypoxia Qualified Code(s): J96.01 - Acute respiratory failure with hypoxia (12) Barrier to discharge Current Visit: Yes Status: Acute (13) Anxiety Current Visit: Yes Status: Chronic - Subjective Interval history: Complains of ringing being too cold. Denies any other complaints at this time. Abdominal pain is well controlled. - Constitutional Vitals: Temp Pulse Resp BP Pulse Ox 97.9 F 63 14 103/50 100 07/28/17 09:54 07/28/17 09:54 07/28/17 09:54 07/28/17 09:54 07/28/17 09:54 General appearance: Present: cachectic, cooperative, A&O X 3, underweight, answers questions appropriately - Respiratory Respiratory exam: Present: prolonged expiratory phase, wheezes. Absent: accessory muscle use, rales, rhonchi - Cardiovascular Cardiovascular exam: Present: RRR, +S1, +S2. Absent: diastolic murmur, gallop, rubs, systolic murmur - GI/Abdominal GI/Abdominal exam: Present: normal bowel sounds, soft, no peritoneal signs. Absent: distended, tenderness - Extremities Exam Extremities exam: Present: warm, radial pulses palpable and symmetrical. Absent : calf tenderness, cyanotic, pedal edema - Neurological Exam Neurological exam: Present: CN II-XII intact, oriented X3, no focal deficits. Absent: facial droop, speech deficit Internal Medicine: Result - Labs CBC & Chem 7: 07/21/17 05:49 07/27/17 09:31 - ABG Interpretation ABG results: ABG ABG pH 7.37 pH Units (7.32-7.45) 07/17/17 17:06 ABG pCO2 38 mmHg (35-45) 07/17/17 17:06 ABG pO2 65 mmHg (85-104) L 07/17/17 17:06 ABG O2 Saturation 92 % (95-98) L 07/17/17 17:06 PT/INR, D-dimer PT 10.0 Seconds (9.4-12.1) 07/14/17 06:49 - VTE Documentation of Mechanical Device: Intermittent pneumatic compression device Consult Discharge Plan - Plan Referrals: Ernesto Easton MD [Primary Care Provider] -
[2017-07-28] MEDS: Nicotine 14 MG PATCH.TD24 TD SCH (15:23)
[2017-07-28] MEDS: Melatonin 3 MG TABLET PO SCH (20:04)
[2017-07-29] MEDS: *HR* OxyCODONE Immed Rel 5 MG TABLET PO PRN ×3 (02:53→20:22)
[2017-07-29] MEDS: *HR* Heparin 5,000 UNIT/ML VIAL SQ SCH ×2 (06:42→18:15)
[2017-07-29] MEDS ORDERED: Aminoglycoside Consult 1 EACH MC ONE (07:51)
[2017-07-29] MEDS: Insulin LISPRO 300 UNITS/3 ML VIAL SQ SCH ×3 (09:05→17:32)
[2017-07-29] MEDS: Anastrozole 1 MG TABLET PO SCH (09:13)
[2017-07-29] MEDS: Gabapentin 300 MG CAPSULE PO SCH ×2 (09:13→20:21)
[2017-07-29] MEDS: Vancomycin 750 MG in D5% in Water 250 ML IVPB SCH (09:14)
--- NOTE | 2017-07-29 16:38 | Discharge Summary ---
Date of Encounter: 07/29/17 Time of Encounter: 11:00 - Discharge Diagnosis (1) Pneumonia Priority: Primary Status: Resolved Qualifiers: Pneumonia type: due to methicillin-resistant Staphylococcus aureus (MRSA) Laterality: left Lung location: lower lobe of lung Qualified Code(s): J15.212 - Pneumonia due to Methicillin resistant Staphylococcus aureus (2) Sepsis Priority: Secondary Status: Resolved Qualifiers: Sepsis type: methicillin resistant Staphylococcus aureus Qualified Code(s) : A41.02 - Sepsis due to Methicillin resistant Staphylococcus aureus (3) Severe pain Priority: Secondary Status: Acute Comments: Cancer related pain (4) Breast cancer, left breast Priority: Secondary Status: Chronic Qualifiers: Breast location: combined nipple and areola Estrogen receptor status: unspecified Patient sex: female Qualified Code(s): 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, left female breast (5) COPD (chronic obstructive pulmonary disease) Priority: Secondary Status: Chronic Qualifiers: COPD type: emphysema Emphysema type: other Qualified Code(s): J43.8 - Other emphysema (6) DVT prophylaxis Priority: Secondary Status: Acute (7) Failure to thrive in adult Priority: Secondary Status: Acute (8) HTN (hypertension) Priority: Secondary Status: Chronic Qualifiers: Hypertension type: essential hypertension Qualified Code(s): I10 - Essential (primary) hypertension (9) Nausea and vomiting in adult patient Priority: Secondary Status: Acute (10) Metastatic cancer Priority: Secondary Status: Chronic (11) Acute respiratory failure Priority: Secondary Status: Resolved Qualifiers: Respiratory failure complication: hypoxia Qualified Code(s): J96.01 - Acute respiratory failure with hypoxia (12) Barrier to discharge Priority: Secondary Status: Acute (13) Anxiety Priority: Secondary Status: Chronic - Discharge Medications Prescriptions: Ondansetron ODT [Zofran ODT] 4 mg SL Q6HR PRN #30 tab.rapdis PRN Reason: Nausea And Vomiting OxyCODONE Immed Rel [Roxicodone 5 MG] 5 mg PO Q6HR PRN #20 tablet PRN Reason: Severe Pain clonazePAM [Klonopin] 0.5 mg PO BID PRN #20 tablet PRN Reason: Anxiety FentaNYL PATCH [Duragesic] 25 mcg TD Q72H #5 patch.td72 Gabapentin [Neurontin] 300 mg PO BID #30 capsule Home Medications: Levothyroxine [Synthroid] 100 mcg PO DAILY 04/12/15 [History] Phenytoin [Dilantin] 100 mg PO TID 04/12/15 [History] Tizanidine HCl [Zanaflex] 4 mg PO TID 04/12/15 [History] Lidocaine Patch [Lidoderm 5% patch] 1 patch TP DAILY #10 adh..patch 12/25/16 [Rx ] Lansoprazole [Prevacid] 30 mg PO DAILY 01/01/17 [History] Lisinopril [Zestril] 20 mg PO DAILY 07/15/17 [History] Acetaminophen [Tylenol] 650 mg PO Q6HR PRN tablet 07/29/17 [Rx] Benzonatate [Tessalon] 100 mg PO TID PRN capsule 07/29/17 [Rx] FentaNYL PATCH [Duragesic] 25 mcg TD Q72H #5 patch.td72 07/29/17 [Rx] Gabapentin [Neurontin] 300 mg PO BID #30 capsule 07/29/17 [Rx] Ipratropium/Albuterol Neb [Duoneb] 3 ml IH [id number] PRN inhsol 07/29/17 [Rx] Melatonin 3 mg PO HS tablet 07/29/17 [Rx] Nicotine Patch [Nicoderm] 14 mg TD Q24H patch.td24 07/29/17 [Rx] Ondansetron ODT [Zofran ODT] 4 mg SL Q6HR PRN #30 tab.rapdis 07/29/17 [Rx] OxyCODONE Immed Rel [Roxicodone 5 MG] 5 mg PO Q6HR PRN #20 tablet 07/29/17 [Rx] clonazePAM [Klonopin] 0.5 mg PO BID PRN #20 tablet 07/29/17 [Rx] Allergies/Adverse Reactions: 3 Allergy/AdvReac Type Severity Reaction Status Date / Time phenobarbital AdvReac Intermediate hallucinati Verified 04/07/17 17:57 ons Date of admission: 07/18/17 12:54 Primary care physician: Ernesto Easton MD Consults: 07/13/17 13:28 Consult to Catalogue Compiler [CONS] Routine Reason for SW Consult: Patient was previously w/Hospice at [facility] and was reportedly fired d/t drug diversion from family member(s). Pt. has advanced metastatic cancer of breast, colon, and lung. Severe pain. Spoke w/Dr. King who will accept pt. to our Hospice if in SNF or ECF d/t drug diversion. Pt. has Medicare/[employer] insurance. Pt. expresses need/want for Hospice care. 07/13/17 13:31 Consult to Nutrition [CONS] Routine Comment: Consulting Provider: NUTRITION Reason for Dietary Consult: PO Supplementation 07/15/17 10:00 Consult to Speech Therapy [CONS] Routine Comment: Evaluate, develop and implement POC Reason for Consult: Pt having difficult time swollowing food. Call Completed: Yes 07/17/17 12:03 Consult to Invasive Line Access Team [CONS] Routine Reason for Consult: limited vascular access-hypotensive Line Type: EPIV 07/18/17 11:56 Consult to Invasive Line Access Team [CONS] Routine Reason for Consult: True midlline insertion Line Type: Midline Discharging clinician: Shaina Villafana Anticipated date of discharge: 07/30/17 - Patient Status Disposition: Hospice - Medical Facility Condition: Fair Functional capacity at discharge: bed bound Overall status at discharge: other (patient being transitioned to hospice) - Discharge Instructions Instructions: Acute Respiratory Distress Syndrome (DC), Chronic Obstructive Pulmonary Disease (DC), Sepsis (DC), Chronic Hypertension (DC), Anxiety (DC) Follow Up With: Ernesto Easton MD [Primary Care Provider] - (in 1-2 weeks) - Diet and Activity Activity: as per physical therapy Diet: advance to your usual diet Hospital course: Ms. Espinal is a 87 year old female patient with a history of COPD and hypertension, breast cancer and colon cancer was hospitalized here after she presented to the ER with complaints of intractable nausea and vomiting and intractable pain. Patient had been discharged from [facility] as there were concerns of opioid medication abuse by family members. She was initially treated with pain medications and the social service assistant was consulted to make arrangements for discharge planning. Eventually she developed acute respiratory failure related to pneumonia with sputum culture was positive for MRSA and patient was treated with vancomycin. She has completed about 13 days of intravenous vancomycin therapy. She is clinically doing better now and does not require further antibiotics. She is being evaluated for placement to [facility] again. This has taken a long time due to family issues. 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 Her pain and nausea are well controlled with her current medication regimen. She has been accepted at [facility] and as soon as Medicaid has been approved, she will be discharged there. - Time Spent with Patient Total time spent providing and/or coordinating discharge services: Greater than 30 minutes (45 min) - Constitutional Vitals: Temp Pulse Resp BP Pulse Ox 97.5 F L 64 18 146/78 98 07/29/17 10:44 07/29/17 10:44 07/29/17 10:44 07/29/17 10:44 07/29/17 10:44 General appearance: Present: cachectic, cooperative, A&O X 3, underweight, answers questions appropriately - Respiratory Respiratory exam: Present: prolonged expiratory phase. Absent: accessory muscle use, rales, rhonchi, wheezes - Cardiovascular Cardiovascular exam: Present: RRR, +S1, +S2. Absent: diastolic murmur, gallop, rubs, systolic murmur - GI/Abdominal GI/Abdominal exam: Present: normal bowel sounds, soft, tenderness (lower abdomen ), no peritoneal signs. Absent: distended - Extremities Exam Extremities exam: Present: warm, radial pulses palpable and symmetrical. Absent : calf tenderness, cyanotic, pedal edema - Neurological Exam Neurological exam: Present: CN II-XII intact, oriented X3, no focal deficits. Absent: facial droop, speech deficit - Skin Skin exam: Present: dry, intact - VTE Documentation of Mechanical Device: Intermittent pneumatic compression device
--- NOTE | 2017-07-29 16:45 | Physician Discharge Referral ---
ExtendedCare Referral Info Provider in Charge after Transfer: PCP Institutional Level of Care: Skilled - Diagnosis (1) Pneumonia Priority: Primary Status: Resolved (2) Sepsis Priority: Secondary Status: Resolved (3) Severe pain Priority: Secondary Status: Acute (4) Breast cancer, left breast Priority: Secondary Status: Chronic (5) COPD (chronic obstructive pulmonary disease) Priority: Secondary Status: Chronic (6) DVT prophylaxis Priority: Secondary Status: Acute (7) Failure to thrive in adult Priority: Secondary Status: Acute (8) HTN (hypertension) Priority: Secondary Status: Chronic (9) Nausea and vomiting in adult patient Priority: Secondary Status: Acute (10) Metastatic cancer Priority: Secondary Status: Chronic (11) Acute respiratory failure Priority: Secondary Status: Resolved (12) Barrier to discharge Priority: Secondary Status: Acute (13) Anxiety Priority: Secondary Status: Chronic Prognosis: Poor Aware of Diagnosis: Patient, Family Aware of Prognosis: Patient, Family - Transfer Medications Prescriptions: Ondansetron ODT [Zofran ODT] 4 mg SL Q6HR PRN #30 tab.rapdis PRN Reason: Nausea And Vomiting OxyCODONE Immed Rel [Roxicodone 5 MG] 5 mg PO Q6HR PRN #20 tablet PRN Reason: Severe Pain clonazePAM [Klonopin] 0.5 mg PO BID PRN #20 tablet PRN Reason: Anxiety FentaNYL PATCH [Duragesic] 25 mcg TD Q72H #5 patch.td72 Gabapentin [Neurontin] 300 mg PO BID #30 capsule Home Medications: Levothyroxine [Synthroid] 100 mcg PO DAILY 04/12/15 [History] Phenytoin [Dilantin] 100 mg PO TID 04/12/15 [History] Tizanidine HCl [Zanaflex] 4 mg PO TID 04/12/15 [History] Lidocaine Patch [Lidoderm 5% patch] 1 patch TP DAILY #10 adh..patch 12/25/16 [Rx ] Lansoprazole [Prevacid] 30 mg PO DAILY 01/01/17 [History] Lisinopril [Zestril] 20 mg PO DAILY 07/15/17 [History] Acetaminophen [Tylenol] 650 mg PO Q6HR PRN tablet 07/29/17 [Rx] Benzonatate [Tessalon] 100 mg PO TID PRN capsule 07/29/17 [Rx] FentaNYL PATCH [Duragesic] 25 mcg TD Q72H #5 patch.td72 07/29/17 [Rx] Gabapentin [Neurontin] 300 mg PO BID #30 capsule 07/29/17 [Rx] Ipratropium/Albuterol Neb [Duoneb] 3 ml IH [id number] PRN inhsol 07/29/17 [Rx] Melatonin 3 mg PO HS tablet 07/29/17 [Rx] Nicotine Patch [Nicoderm] 14 mg TD Q24H patch.td24 07/29/17 [Rx] Ondansetron ODT [Zofran ODT] 4 mg SL Q6HR PRN #30 tab.rapdis 07/29/17 [Rx] OxyCODONE Immed Rel [Roxicodone 5 MG] 5 mg PO Q6HR PRN #20 tablet 07/29/17 [Rx] clonazePAM [Klonopin] 0.5 mg PO BID PRN #20 tablet 07/29/17 [Rx] Allergies/Adverse Reactions: 3 Allergy/AdvReac Type Severity Reaction Status Date / Time phenobarbital AdvReac Intermediate hallucinati Verified 04/07/17 17:57 ons - Respiratory Orders Oxygen / L per min (2) Smoking Cessation: Smoking cessation has been advised. For more information, call the [place] Tobacco Quit Line at 2-239-DJDW-NOW. - Ancillary Orders May consult with Dentist, Reel Winder, Substance Abuse Clinician PRN - Advance Directives Code Status: DNR-Arrest/Don't Intubate (DNR CC ARREST DNI) - Mobility Orders Other (Per PT eval) - Rehabiliation Orders Rehab Potential: Poor Rehab Orders: Evaluation for Physical Therapy, Evaluation for Occupational Therapy - Diet Orders Mechanical Soft CERTIFICATION: I certify that the transfer of the above named patient to an Extended Care Facility is necessary for the continuing treatment of the diagnosis listed. The above information is true and accurate reflection of patient's current condition. Confidential - Redisclosure prohibited without a patient's written consent.
[2017-07-29] MEDS: Nicotine 14 MG PATCH.TD24 TD SCH (17:00)
[2017-07-29] MEDS: clonazePAM 0.5 MG TABLET PO PRN (17:17)
[2017-07-29] MEDS: Acetaminophen 325 MG TABLET PO PRN (17:17)
[2017-07-29] MEDS: Melatonin 3 MG TABLET PO SCH (20:21)
[2017-07-30] MEDS: *HR* OxyCODONE Immed Rel 5 MG TABLET PO PRN ×2 (05:42→14:50)
[2017-07-30] MEDS: *HR* Heparin 5,000 UNIT/ML VIAL SQ SCH (05:42)
[2017-07-30] MEDS: Insulin LISPRO 300 UNITS/3 ML VIAL SQ SCH ×2 (08:02→14:26)
[2017-07-30] MEDS: Anastrozole 1 MG TABLET PO SCH (08:49)
[2017-07-30] MEDS: Gabapentin 300 MG CAPSULE PO SCH (08:49)
[2017-07-30] MEDS: *HR* FentaNYL PATCH 25 MCG PATCH TD SCH (08:49)
[2017-07-30 13:02] VITALS: BP 148/78
[2017-07-30] MEDS ORDERED: FLUARIX QUAD 2017-18 36MOS UP/PF 0.5 ML SYRINGE IM ONE (13:59)
--- NOTE | 2017-07-30 14:08 | Internal Med Progress Note ---
Date of Encounter: 07/30/17 Time of Encounter: 14:05 - Assessment and plan (1) COPD exacerbation Current Visit: Yes Status: Resolved - Subjective Interval history: Patient was admitted here for narcotic abuse. She was noted to have MRSA in his sputum and has been treated with vancomycin with almost 2 weeks. She was seen this morning. She denies any complaints. Her breathing is much better now significant cough. Discharge summary is already done and no change in orders made. Her nebulizer made schedule instead of when necessary. - Constitutional Vitals: Temp Pulse Resp BP Pulse Ox 97.4 F L 67 16 148/78 91 07/30/17 12:32 07/30/17 12:32 07/30/17 12:32 07/30/17 12:32 07/30/17 12:32 General appearance: Present: cachectic, cooperative, A&O X 3, underweight, answers questions appropriately - Head Head exam: Present: atraumatic, normocephalic - Eye Eye exam: Present: PERRL, conjuntiva pink, sclera anicteric Pupils: Present: PERRL - Neck Neck exam general surgery: Present: supple, trachea midline. Absent: lymphadenopathy - Respiratory Respiratory exam: Present: CTAB. Absent: accessory muscle use, rales, rhonchi, wheezes - Cardiovascular Cardiovascular exam: Present: RRR, +S1, +S2. Absent: diastolic murmur, gallop, rubs, systolic murmur - GI/Abdominal GI/Abdominal exam: Present: normal bowel sounds, soft, no peritoneal signs. Absent: distended, tenderness - Extremities Exam Extremities exam: Present: warm, radial pulses palpable and symmetrical. Absent : calf tenderness, cyanotic, pedal edema - Neurological Exam Neurological exam: Present: CN II-XII intact, oriented X3, no focal deficits. Absent: pronater drift, facial droop, speech deficit - Skin Skin exam: Present: dry, intact Internal Medicine: Result - Labs CBC & Chem 7: 07/21/17 05:49 07/27/17 09:31 - ABG Interpretation ABG results: ABG ABG pH 7.37 pH Units (7.32-7.45) 07/17/17 17:06 ABG pCO2 38 mmHg (35-45) 07/17/17 17:06 ABG pO2 65 mmHg (85-104) L 07/17/17 17:06 ABG O2 Saturation 92 % (95-98) L 07/17/17 17:06 PT/INR, D-dimer PT 10.0 Seconds (9.4-12.1) 07/14/17 06:49 - VTE Documentation of Mechanical Device: Intermittent pneumatic compression device Consult Discharge Plan - Plan Instructions: Acute Respiratory Distress Syndrome (DC), Chronic Obstructive Pulmonary Disease (DC), Sepsis (DC), Chronic Hypertension (DC), Anxiety (DC) Referrals: Ernesto Easton MD [Primary Care Provider] - (in 1-2 weeks) Prescriptions: Ondansetron ODT [Zofran ODT] 4 mg SL Q6HR PRN #30 tab.rapdis PRN Reason: Nausea And Vomiting OxyCODONE Immed Rel [Roxicodone 5 MG] 5 mg PO Q6HR PRN #20 tablet PRN Reason: Severe Pain clonazePAM [Klonopin] 0.5 mg PO BID PRN #20 tablet PRN Reason: Anxiety FentaNYL PATCH [Duragesic] 25 mcg TD Q72H #5 patch.td72 Gabapentin [Neurontin] 300 mg PO BID #30 capsule
[2017-07-30] MEDS: Nicotine 14 MG PATCH.TD24 TD SCH (14:50)
[2017-07-30] MEDS ORDERED: Ipratropium/Albuterol Neb 3 ML IH SCH (16:00)
== END 2017-07-30 15:15 | disposition hospice, inpatient (51) | DRG 871 ==
LOC: 3ANU → SUATTDRO 10:02 → 3ANU 07-27 19:29
PROVIDERS: ADMIT Hospitalist; ATTEND Internal Medicine

== ENCOUNTER 2018-02-10 20:38 | Inpatient (IN) ==
[2018-02-10] MEDS ORDERED: 0.9 % Sodium Chloride 1,000 ML ONE (22:48)
--- NOTE | 2018-02-10 23:12 | Event Note ---
Date of Encounter: 02/11/18 Time of Encounter: 23:04 Patient was seen and examined. I agree with the H&P as written by the Resident Physician. Briefly, patient is 87 yo F with history of metastatic breast cancer. Also history of lung and colon cancer, COPD, HTN, tobacco use, who is transferred from [facility] for shortness of breath/hypoxia. Patient is a correction resident and family suspected pneumonia per [facility] ED and wanted her evaluated and therefore was sent to [facility] then to her. No family her on arrival. Patient was significantly hypoxic with O2 sats reportedly in the 50s and put on Bipap. She was hypertensive with systolic of 211 there. Temp 103.9. Tachycardic as well. EKG showed sinus tachy with QTC of 667. ABG showed PH 7.46 with PO2 79 and CO2 of 40. Labs showed wbc of 26k, creatinine 1.17, K 3.2, Na 140, normal lactic acid. CXR showed LLL pneumonia. Patient was given rocephin and doxycyline and sent here on Bipap. Upon arrival, she was hypotensive in the 80s systolically and bradycardic into the 50s. Sats were 99% on Bipap. I have asked for the bipap to be removed. A bolus of 1 L was started and BP improved. A/Ox3 RRR. S1, S2, no m/r/g Diminished with coarse breath sounds at the bases Abd soft, NT, ND, +BS No edema. 2+ DP Nonfocal Admit to hospitalist for acute hypoxic resp failure secondary to HCAP Start vanco/zosyn repeat EKG Repeat labs avoid QT prolonging agents IV fluids Avoid nephrotoxins O2 support and wean as tolerated Scheduled nebs check sputum/blood cultures/urine strep, legionella DVT ppx
--- NOTE | 2018-02-11 00:03 | Internal Med History&Physical ---
Date of Encounter: 02/11/18 Time of Encounter: 11:00 Internal Medicine - H&P: HPI Chief complaint: Shortness of breath Admitted From: Direct Admit (from [facility]) Plans for Post Hospital Care: Transfer Half-Way Facility History of present illness: Ms. Espinal is a 87 year old female who lives at a [facility] with a pmh of HTN, COPD oxygen dependent, breast CA with mets to lung present to [facility] as a direct admit from [facility] for left lower lobe pneumonia. Patient had shortness of breath for one week with associated coughing, fever, and increased sputum production. Patient has felt like eating for the last 3-4 days. She is normally on 3L of oxygen / but left the custodial for the day and did not use her oxygen all day. Denies hemoptysis, typical chest pain, palpitations, edema, or syncope. She presented to the ED at [facility] and was found to have a fever of 103.9F, systolic blood pressure of 211mmHg, and oxygen saturation in the 50s. BIPAP was placed and ABG obtained which showed PH 7.46, PO2 79, and CO2 40. CXR showed LLL consolidation. Rocephin and Doxycline were given in the ED and was transfered to [facility]. During transit patient became hypotensive with a min of 89/ 37 and bradycardic (50s), but sats remained in the high 90s on BIPAP. She was taken off BIPAP upon arrival and placed on 3L NC maintained sats in the 90s. Systolic BP was 112 after BIPAP removed. . Past Med Surg Social Fam HX - Past Medical History Source: patient, old records reviewed Medical history: cancer, COPD, hypertension, other Additional medical history: breast and lung CA Psychiatric history: anxiety, depression - Past Surgical History Surgical History: non-contributory Additional surgical history: foot surgery, tail bone surgery, hip surgery, neck surgery, cholecystectomy, colectomy (partial), Hysterectomy (total), - Social History Smoking Status: Current every day smoker Packs per day: 1 Smokeless Tobacco Status: Yes Alcohol use: none Drug use: none Current living situation: [facility] - Family History Father Family Member Ethnicity: Non- Living Status: Hx Family Respiratory Disorders: Yes (Black lung from working in [employer]) Mother Family Member Ethnicity: Non- Living Status: Hx Family Cancer: Yes Brother Family Member Ethnicity: Non- Living Status: Sister Family Member Ethnicity: Non- Living Status: Still Living Hx Family Endocrine Disorder: Yes (Cirrhosis) Internal Medicine - H&P: Meds Levothyroxine [Synthroid] 100 mcg PO DAILY 04/12/15 [History] Phenytoin [Dilantin] 100 mg PO TID 04/12/15 [History] Tizanidine HCl [Zanaflex] 4 mg PO TID 04/12/15 [History] Lidocaine Patch [Lidoderm 5% patch] 1 patch TP DAILY #10 adh..patch 12/25/16 [Rx ] Lansoprazole [Prevacid] 30 mg PO DAILY 01/01/17 [History] Lisinopril [Zestril] 20 mg PO DAILY 07/15/17 [History] Acetaminophen [Tylenol] 650 mg PO Q6HR PRN tablet 07/29/17 [Rx] Benzonatate [Tessalon] 100 mg PO TID PRN capsule 07/29/17 [Rx] FentaNYL PATCH [Duragesic] 25 mcg TD Q72H #5 patch.td72 07/29/17 [Rx] Gabapentin [Neurontin] 300 mg PO BID #30 capsule 07/29/17 [Rx] Ipratropium/Albuterol Neb [Duoneb] 3 ml IH [id number] PRN inhsol 07/29/17 [Rx] Melatonin 3 mg PO HS tablet 07/29/17 [Rx] Nicotine Patch [Nicoderm] 14 mg TD Q24H patch.td24 07/29/17 [Rx] Ondansetron ODT [Zofran ODT] 4 mg SL Q6HR PRN #30 tab.rapdis 07/29/17 [Rx] OxyCODONE Immed Rel [Roxicodone 5 MG] 5 mg PO Q6HR PRN #20 tablet 07/29/17 [Rx] clonazePAM [Klonopin] 0.5 mg PO BID PRN #20 tablet 07/29/17 [Rx] 3 Allergy/AdvReac Type Severity Reaction Status Date / Time phenobarbital AdvReac Intermediate hallucinati Verified 04/07/17 17:57 ons All Systems PM: A 10-system review of systems was performed and is negative for pertinent findings except as documented above in the HPI. - Constitutional Constitutional: fever(s), no falls, no weakness - EENT Eyes: no change in vision - Breasts Breasts: pain - Cardiovascular Cardiovascular ROS IM: chest pain (chronic 2/2 to displaced rib fracture), dyspnea, no edema, no lightheadedness, no palpitations, no syncope - Respiratory Respiratory: cough, excessive phlegm production, no hemoptysis - Gastrointestinal Gastrointestinal: no constipation, no diarrhea, no hematemesis - Genitourinary Genitourinary: no dysuria, no urinary incontinence Menstruation: post menopausal - Integumentary Integumentary IM: no rash - Neurological Neurological ROS: no dizziness, no focal weakness, no frequent falls, no memory loss - Psychiatric Psychiatric: anxiety - Constitutional Vitals: Temp Pulse Resp BP Pulse Ox 97.7 F 70 19 112/66 96 02/10/18 22:50 02/10/18 22:50 02/10/18 22:50 02/10/18 22:50 02/10/18 22:50 Exam: Constitutional: Alert, in no acute distress, diffuse muscle wasting Head: Normocephalic, atraumatic, normal contour and symmetric, no masses, lesions or scars Heart: Normal, regular rate and rhythm, no murmurs Lungs: diminished breath sounds bilaterally, no wheezing, rhonchi, or crackles Abdomen: Soft, nondistended, nontender, and no masses palpable, bowel sounds present and normal, no guarding or rigidity. Extremities: No clubbing, cyanosis, or edema, Skin: Skin warm and dry, no lesions, no rashes, no jaundice Neurologic: Cranial nerves II through XII grossly intact, no focal deficits, strength within normal limits in all extremities Psych: Cooperative with exam, good eye contact, cognitive function intact, judgment good insight good, speech clear, thought process logical, and goal directed Internal Med - H&P Results - Labs CBC & Chem 7: 02/11/18 01:05 02/11/18 01:05 - EKG Data Prior EKG available for review: yes Interpretation IM: normal EKG EKG comments: 02/11/18 00:46 normal sinus rhythm, normal rate, QTC= 416 - Assessment and plan (1) Healthcare-associated pneumonia Current Visit: Yes Status: Acute Assessment and plan: Shortness of breath present for one week. Currently on NC 3L 01/04 at nursing facility. Febrile 103.9 in the ED. Chest x-ray shows left lower lobe consolidation. WBC=26. Patient was placed on BIPAP while in the ED and for transport. After arriving switched to nasal cannula 3L patient tolerated well. Vitals currently wnl on NC 3L. Plan: - blood cultures obtained after Rocephin and Doxycycline given - repeat CXR - begin Vanco and Zosyn ( day 1) - continue nasal cannula (2) Hypokalemia Current Visit: Yes Status: Acute Assessment and plan: Potassium at [facility] was 3.2. 20meq of potassium given at [facility]. Repeat potassium 3.3. Plan: - 40meq KCl, continue to replace as needed (3) Acute kidney injury Current Visit: Yes Status: Acute Assessment and plan: Creatinine elevated at [facility] 1.17. 500ml bolus given upon arrival. Plan: - NS at 75ml/hr - avoiding nephrotoxins - repeat BMP (4) QT prolongation Current Visit: Yes Status: Acute Assessment and plan: EKG at [facility] showed prolonged QTc= 667. Upon arrival QTc = 410. Resolved but will continue to avoid QT prolongation agents. (5) Breast cancer Current Visit: Yes Status: Acute Assessment and plan: Patient states that she is currently is not on chemotherapy because it made her sick. Will f/u outpatient. Qualifiers: Breast location: unspecified site of breast Estrogen receptor status: positive Patient sex: female Laterality: left Qualified Code(s): C50.912 - Malignant neoplasm of unspecified site of left female breast; Z17.0 - Estrogen receptor positive status [ER+] (6) Lung cancer Current Visit: Yes Status: Acute Assessment and plan: Patient states that she is currently is not on chemotherapy because it made her sick. Will f/u outpatient. Qualifiers: Laterality: unspecified laterality Lung location: unspecified part of lung Qualified Code(s): C34.90 - Malignant neoplasm of unspecified part of unspecified bronchus or lung (7) DVT prophylaxis Current Visit: No Status: Acute Assessment and plan: Heparin - Time Spent With Patient Total time spent is greater than 50% in coordination of care (as documented) at patient's floor/unit and/or counseling patient:
[2018-02-11] MEDS ORDERED: Naloxone 0.4 MG/ML INJ IVP PRN (00:17)
[2018-02-11] MEDS ORDERED: Acetaminophen 325 MG TABLET PO PRN (00:17)
[2018-02-11] MEDS: 0.9 % Sodium Chloride 1,000 ML IVC SCH ×2 (00:54→05:16)
[2018-02-11] MEDS ORDERED: Piperacillin/Tazobactam 3.375 GM in 0.9 % Sodium Chloride Mini Bag 100 ML IVPB SCH (01:00)
[2018-02-11 01:24] LABS: Basophils % 0.2 %; Immature Granulocytes % 1.1 % (0-4); Monocytes % 3.2 %
[2018-02-11 01:25] LABS: Basophils # 0.1 K/mcL (0.0-0.2); Hematocrit 26.4 % (35.3-44.9); Hemoglobin 8.7 g/dL (11.5-15.4); Lymphocytes % 4.2 %; Mean Corpuscular Hemoglobin 30.1 pg (28.0-33.3); Mean Corpuscular Volume 91.3 fL (83.0-100.0); Mean Platelet Volume 10.7 fL (9.4-12.4); Platelet Count 232 K/mcL (140-400); Red Blood Count 2.89 M/mcL (3.82-4.97); Red Cell Distribution Width 16.3 % (11.5-14.5); Segmented Neutrophils % 91.3 %
[2018-02-11 01:26] LABS: INR 1.2; Lymphocytes # 1.5 K/mcL (0.6-4.6); Monocytes # 1.1 K/mcL (0.0-1.3); Neutrophils # 31.6 K/mcL (1.6-8.9); Prothrombin Time 13.1 Seconds (9.4-12.1)
[2018-02-11 01:37] LABS: Albumin 2.7 g/dL (3.5-5.7); Albumin/Globulin Ratio 0.8 (1.1-2.2); Bilirubin,Total 0.3 mg/dL (0.3-1.0); Calcium 8.8 mg/dL (8.6-10.3); Globulin 3.5 g/dL (2.4-3.5); Magnesium 1.6 mg/dL (1.6-2.6); Potassium 3.3 mEq/L (3.5-5.1); Total Protein 6.2 g/dL (6.4-8.9)
[2018-02-11 01:42] LABS: Platelet Estimate Normal (Normal); Toxic Granulation Present (Not Present)
[2018-02-11] MEDS: Ipratropium/Albuterol Neb 3 ML IH SCH ×4 (03:50→22:13)
[2018-02-11] MEDS ORDERED: *HR* OxyCODONE Immed Rel 5 MG TABLET PO ONE (05:19)
[2018-02-11] MEDS: *HR* Heparin 5,000 UNIT/ML VIAL SQ SCH ×2 (06:11→18:34)
[2018-02-11] MEDS ORDERED: Aminoglycoside Consult 1 EACH MC ONE (07:05)
[2018-02-11 07:39] LABS: Hemoglobin 8.6 g/dL (11.5-15.4); Red Cell Distribution Width 16.6 % (11.5-14.5)
[2018-02-11 07:40] LABS: Hematocrit 26.6 % (35.3-44.9); Mean Corpuscular HGB Conc 32.3 g/dL (31.6-35.5); Mean Corpuscular Hemoglobin 29.7 pg (28.0-33.3); Mean Corpuscular Volume 91.7 fL (83.0-100.0); Mean Platelet Volume 10.9 fL (9.4-12.4); Platelet Count 220 K/mcL (140-400)
[2018-02-11 07:57] LABS: Calcium 8.7 mg/dL (8.6-10.3); Potassium 4.4 mEq/L (3.5-5.1)
[2018-02-11 08:33] LABS: Lymphocytes # 2.1 K/mcL (0.6-4.6); Neutrophils # 24.4 K/mcL (1.6-8.9); Platelet Estimate Normal (Normal); Toxic Granulation Present (Not Present)
[2018-02-11] MEDS: cefTRIAXone 1,000 MG in Water for inj. (sterile) 20 ML 10 ML IVP SCH (09:20)
[2018-02-11] MEDS ORDERED: clonazePAM 0.5 MG TABLET PO ONE (10:49)
--- NOTE | 2018-02-11 11:32 | Internal Med Progress Note ---
<Woody eGorge - Last Filed: 02/11/18 16:54> Date of Encounter: 02/11/18 Time of Encounter: 09:00 - Assessment and plan (1) Healthcare-associated pneumonia Current Visit: Yes Status: Acute Assessment and plan: Shortness of breath present for one week. Currently on NC 3L 01/04 at nursing facility. Was febrile 103.9 in the ED. Chest x-ray shows left lower lobe consolidation. WBC=26. Patient was placed on BIPAP while in the ED and for transport. After arriving switched to nasal cannula 3L patient tolerated well. Vitals currently wnl on NC 3L. Urine positive for Strep pneumo. - Rocephin and Doxycycline given initially. - Here was started on Vanco and Zosyn, with positive Strep pneumo- switche abx coverage to rocephin. - continue nasal cannula (2) Hypokalemia Current Visit: Yes Status: Acute Assessment and plan: Potassium at [facility] was 3.2. Replaced with supplementation. Will recheck and treat as needed. (3) Acute kidney injury Current Visit: Yes Status: Acute Assessment and plan: Creatinine elevated at [facility] 1.17. 500ml bolus given upon arrival. Plan: - NS at 75ml/hr - avoiding nephrotoxins - repeat BMP (4) QT prolongation Current Visit: Yes Status: Acute Assessment and plan: EKG at [facility] showed prolonged QTc= 667. Upon arrival QTc = 410. Will continue to avoid QT prolongation agents. (5) Breast cancer Current Visit: Yes Status: Acute Assessment and plan: Reported as having primary breast cancer. Patient states that she is currently is not on chemotherapy because it made her sick. 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 Patient states that she is currently is not on chemotherapy because it made her sick. Qualifiers: Laterality: unspecified laterality Lung location: unspecified part of lung Qualified Code(s): C34.90 - Malignant neoplasm of unspecified part of unspecified bronchus or lung - Time Spent With Patient Total time spent is greater than 50% in coordination of care (as documented) at patient's floor/unit and/or counseling patient: - Subjective Interval history: Ms. Espinal was seen and examined laying in bed. She notes that her breathing is poor and she is in a lot of pain currently; mainly her legs, back, and neck. She told myself that she is unsure of what heparin medications were, however she told the nurse that she gets a fentanyl patch every 3 days. Oarrs reviewed showing fentanyl, clonazepam, and gabapentin. History of cancer, she states she is no longer in hospice, but did come form [facility]. She notes that she no longer receives cancer treatments. - Constitutional Vitals: Temp Pulse Resp BP Pulse Ox 97.8 F 72 15 138/63 93 02/11/18 11:20 02/11/18 11:20 02/11/18 11:20 02/11/18 11:20 02/11/18 11:20 General appearance: Present: cooperative, A&O X 3, no acute distress, answers questions appropriately - Head Head exam: Present: atraumatic, normal inspection - Eye Eye exam: Present: EOMI, sclera anicteric - ENT ENT exam: Present: mucous membranes moist - Neck Neck exam general surgery: Present: full ROM, supple - Respiratory Respiratory exam: Present: decreased breath sounds. Absent: respiratory distress, wheezes - Cardiovascular Cardiovascular exam: Present: RRR, +S1, +S2 - GI/Abdominal GI/Abdominal exam: Present: soft, tenderness (diffuse (noted to be chronic)). Absent: distended, firm - Extremities Exam Extremities exam: Present: tenderness (diffuse (noted to be chronic)). Absent: cyanotic, pedal edema - Neurological Exam Neurological exam: Present: alert, oriented X3, no focal deficits. Absent: facial droop, speech deficit - Skin Skin exam: Present: dry, intact, warm. Absent: rash Internal Medicine: Result - Labs CBC & Chem 7: 02/11/18 07:14 02/11/18 07:14 Labs: Short CBC 02/11/18 02/11/18 Range/Units 01:05 07:14 WBC 34.6 H* 26.5 H (4.3-11.1) K/mcL Hgb 8.7 L 8.6 L (11.5-15.4) g/dL Hct 26.4 L 26.6 L (35.3-44.9) % Plt Count 232 220 (140-400) K/mcL Neutrophils # 31.6 H 24.4 H (1.6-8.9) K/mcL BMP 02/11/18 02/11/18 01:05 07:14 Sodium 139 139 Potassium 3.3 L 4.4 D Chloride 106 109 H Carbon Dioxide 24 23 BUN 22 23 Creatinine 1.15 1.21 H Glucose 142 H 96 Calcium 8.8 8.7 Liver Function 02/11/18 Range/Units 01:05 Total Bilirubin 0.3 (0.3-1.0) mg/dL AST 7 L (13-39) Units/L ALT 3 L (7-52) Units/L Alkaline Phosphatase 68 (34-104) Units/L Albumin 2.7 L (3.5-5.7) g/dL - ABG Interpretation ABG results: PT/INR, D-dimer PT 13.1 Seconds (9.4-12.1) H 02/11/18 01:05 - Impressions Impressions Chest X-Ray 02/11/18 00:27 IMPRESSION: COPD and chronic interstitial changes are stable. D/ / Arian Pritchett MD / Arian Pritchett MD Interpreting Provider: Arian Pritchett MD Consult Discharge Plan - Plan Referrals: Ernesto Easton MD [Primary Care Provider] - <Stone Don - Last Filed: 02/11/18 18:23> Date of Encounter: 02/11/18 - Assessment and plan (1) Sepsis Current Visit: No Status: Acute Qualifiers: Sepsis type: Pneumococcus Qualified Code(s): A40.3 - Sepsis due to Streptococcus pneumoniae (2) Pneumonia Current Visit: No Status: Acute Qualifiers: Pneumonia type: due to Pneumococcus Laterality: left Lung location: lower lobe of lung Qualified Code(s): J13 - Pneumonia due to Streptococcus pneumoniae (3) DVT prophylaxis Current Visit: No Status: Acute (4) Hypokalemia Current Visit: Yes Status: Acute (5) Acute kidney injury Current Visit: Yes Status: Acute (6) QT prolongation Current Visit: Yes Status: Acute (7) Breast cancer Current Visit: Yes Status: Acute Qualifiers: Breast location: unspecified site of breast Estrogen receptor status: positive Patient sex: female Laterality: left Qualified Code(s): C50.912 - Malignant neoplasm of unspecified site of left female breast; Z17.0 - Estrogen receptor positive status [ER+] (8) Lung cancer Current Visit: Yes Status: Acute Qualifiers: Laterality: unspecified laterality Lung location: unspecified part of lung Qualified Code(s): C34.90 - Malignant neoplasm of unspecified part of unspecified bronchus or lung (9) HTN (hypertension) Current Visit: No Status: Chronic Qualifiers: Hypertension type: essential hypertension Qualified Code(s): I10 - Essential (primary) hypertension (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 Current Visit: Yes Status: Acute - Time Spent With Patient Total time spent is greater than 50% in coordination of care (as documented) at patient's floor/unit and/or counseling patient: - Constitutional Vitals: Temp Pulse Resp BP Pulse Ox 97.3 F L 62 18 140/61 98 02/11/18 16:12 02/11/18 16:12 02/11/18 16:12 02/11/18 16:12 02/11/18 16:12 Internal Medicine: Result - Labs CBC & Chem 7: 02/11/18 07:14 02/11/18 07:14 Labs: Short CBC 02/11/18 02/11/18 Range/Units 01:05 07:14 WBC 34.6 H* 26.5 H (4.3-11.1) K/mcL Hgb 8.7 L 8.6 L (11.5-15.4) g/dL Hct 26.4 L 26.6 L (35.3-44.9) % Plt Count 232 220 (140-400) K/mcL Neutrophils # 31.6 H 24.4 H (1.6-8.9) K/mcL BMP 02/11/18 02/11/18 01:05 07:14 Sodium 139 139 Potassium 3.3 L 4.4 D Chloride 106 109 H Carbon Dioxide 24 23 BUN 22 23 Creatinine 1.15 1.21 H Glucose 142 H 96 Calcium 8.8 8.7 Liver Function 02/11/18 Range/Units 01:05 Total Bilirubin 0.3 (0.3-1.0) mg/dL AST 7 L (13-39) Units/L ALT 3 L (7-52) Units/L Alkaline Phosphatase 68 (34-104) Units/L Albumin 2.7 L (3.5-5.7) g/dL - ABG Interpretation ABG results: PT/INR, D-dimer PT 13.1 Seconds (9.4-12.1) H 02/11/18 01:05 - Impressions Impressions Chest X-Ray 02/11/18 00:27 IMPRESSION: COPD and chronic interstitial changes are stable. D/ / Arian Pritchett MD / Arian Pritchett MD Interpreting Provider: Arian Pritchett MD - Attending Attestation I examined this patient and my medical decision-making was reviewed with the Resident Physician on 02/11/18. I agree with the documented findings, disposition and treatment plan as described except to the extent set forth below. Ms Espinal is currently admitted for pneumonia. She remains moderate to high risk due to the potential for worsening clinical status. Ms Espinal is complaining of pain and anxiety. Her breathing seems to be better. No GI issues. Exam Alert Mild distress Mucus membranes dry Heart distant Rhonchi heard I/P 1. Pneumococcal pneumonia 2. Chronic pain Further diagnoses and plan as above.
[2018-02-11] MEDS: *HR* OxyCODONE/APAP 10/325 TABLET PO PRN ×2 (13:00→22:49)
--- NOTE | 2018-02-11 16:44 | Electrocardiograph Report ---
[place] [id number] Test Date: 2018-02-10 Pat Name: Lula Espinal Department: 111 Room: [facility] Gender: F Edger Technician: : [id number] Requested By: Polo Mann Order Number: [id number] Reading MD: Betito Mccullough Measurements Intervals [place] Rate: 64 P: 65 CA: 195 QRS: 59 QRSD: 85 T: 84 QT: 407 QTc: 416 Interpretive Statements SINUS RHYTHM MODERATE T-WAVE ABNORMALITY, CONSIDER ANTERIOR ISCHEMIA Electronically Signed On 02-11-2018 16:43:19 EDT by Betito Mccullough
[2018-02-11] MEDS ORDERED: clonazePAM 0.5 MG TABLET PO PRN (19:22)
[2018-02-11] MEDS: Gabapentin 300 MG CAPSULE PO SCH (20:26)
[2018-02-11] MEDS: tiZANidine 4 MG TABLET PO PRN (20:26)
[2018-02-11] MEDS ORDERED: Melatonin 3 MG TABLET PO SCH (21:00)
[2018-02-12] MEDS: tiZANidine 4 MG TABLET PO PRN (02:45)
[2018-02-12] MEDS: Ipratropium/Albuterol Neb 3 ML IH SCH ×2 (03:41→10:56)
[2018-02-12 04:21] LABS: Basophils # 0.1 K/mcL (0.0-0.2); Basophils % 0.4 %; Eosinophils # 0.3 K/mcL (0.0-0.6); Eosinophils % 1.8 %; Hematocrit 27.3 % (35.3-44.9); Hemoglobin 8.8 g/dL (11.5-15.4); Immature Granulocytes % 0.7 % (0-4); Lymphocytes # 3.2 K/mcL (0.6-4.6); Lymphocytes % 23.3 %; Mean Corpuscular HGB Conc 32.2 g/dL (31.6-35.5); Mean Corpuscular Hemoglobin 29.2 pg (28.0-33.3); Mean Corpuscular Volume 90.7 fL (83.0-100.0); Mean Platelet Volume 11.1 fL (9.4-12.4); Monocytes # 0.6 K/mcL (0.0-1.3); Monocytes % 4.3 %; Neutrophils # 9.4 K/mcL (1.6-8.9); Nucleated Red Blood Cells 0.1 /100 WBC (0); Platelet Count 241 K/mcL (140-400); Red Blood Count 3.01 M/mcL (3.82-4.97); Red Cell Distribution Width 16.4 % (11.5-14.5); Segmented Neutrophils % 69.5 %
[2018-02-12] MEDS: *HR* Morphine Soln 10 MG/5 ML UDC PO PRN ×2 (04:34→10:11)
[2018-02-12] MEDS: *HR* Heparin 5,000 UNIT/ML VIAL SQ SCH (04:34)
[2018-02-12 04:38] LABS: BUN/Creatinine Ratio 22 (6-26); Blood Urea Nitrogen 23 mg/dL (8-23); Calcium 8.9 mg/dL (8.6-10.3); Carbon Dioxide 19 mEq/L (23-29); Chloride 108 mEq/L (98-107); Glucose 112 mg/dL (70-105); Osmolality,Calculated 286 (280-300); Potassium 3.7 mEq/L (3.5-5.1); Sodium 136 mEq/L (136-145); eGFR For African Americans > 60 (> 60); eGFR For Non-African Americans 50 (> 60)
[2018-02-12 06:44] VITALS: BP 129/53
[2018-02-12] MEDS ORDERED: Sennosides 8.6 MG TABLET PO SCH (09:00)
--- NOTE | 2018-02-12 09:43 | Discharge Summary ---
<Heather Jeffrey - Last Filed: 02/12/18 09:41> Orders not resulted at time of discharge: Pending orders 02/11/18 01:05 Culture,Blood [BC] Routine 02/11/18 01:56 Culture,Sputum with Gram Stain [RM] Routine Date of Encounter: 02/12/18 Time of Encounter: 09:41 - Discharge Diagnosis (1) Healthcare-associated pneumonia Priority: Primary Status: Acute (2) Hypokalemia Priority: Secondary Status: Acute (3) Acute kidney injury Priority: Secondary Status: Acute (4) QT prolongation Priority: Secondary Status: Acute (5) Breast cancer Priority: Secondary Status: Chronic Qualifiers: Breast location: unspecified site of breast Estrogen receptor status: positive Patient sex: female Laterality: left Qualified Code(s): C50.912 - Malignant neoplasm of unspecified site of left female breast; Z17.0 - Estrogen receptor positive status [ER+] (6) Lung cancer Priority: Secondary Status: Chronic Qualifiers: Laterality: unspecified laterality Lung location: unspecified part of lung Qualified Code(s): C34.90 - Malignant neoplasm of unspecified part of unspecified bronchus or lung Hospital course: Ms. Espinal is a 87 year old female with a pmh of HTN, COPD oxygen dependent, breast CA with mets to lung present to [facility] as a direct admit from [facility] for left lower lobe pneumonia. Patient had shortness of breath for one week with associated coughing, fever, and increased sputum production. Patient has felt like eating for the last 3-4 days. She is normally on 3L of oxygen /7 She presented to the ED at [facility] and was found to have a fever of 103.9F, systolic blood pressure of 211mmHg, and oxygen saturation in the 50s. BIPAP was placed and ABG obtained which showed PH 7.46, PO2 79, and CO2 40. CXR showed LLL consolidation. Rocephin and Doxycline were given in the ED and was transfered to [facility]. During transit patient became hypotensive with a min of 89/ 37 and bradycardic (50s), but sats remained in the high 90s on BIPAP. She was taken off BIPAP upon arrival and placed on 3L NC maintained sats in the 90s. Systolic BP was 112 after BIPAP removed. Patient had multiple episodes during her stay of lower leg, back, and neck pain that was treated. Patient now states she feels much better with no leg pain. - Time Spent with Patient Total time spent providing and/or coordinating discharge services: - Discharge Medications Prescriptions: Acetaminophen w/Cod 300-30 mg [Tylenol w/Codeine #3] 1 each PO Q6HR PRN 5 Days # 20 tablet PRN Reason: Breakthrough Pain Ipratropium/Albuterol Neb [Duoneb] 3 ml IH [id number] PRN #100 inhsol PRN Reason: Shortness Of Breath/Wheezing Promethazine [Phenergan] 25 mg PO Q6HR PRN #20 tablet PRN Reason: Nausea Amoxicillin/Clavulanate [Augmentin] 875 mg PO BIDWM #10 tablet Benzonatate [Tessalon] 100 mg PO TID PRN #30 capsule PRN Reason: Cough clonazePAM [Klonopin] 0.5 mg PO TID PRN 7 Days #20 tablet PRN Reason: Anxiety FentaNYL PATCH [Duragesic] 1 each TD Q72H 6 Days #2 patch.td72 Gabapentin [Neurontin] 300 mg PO BID #30 capsule Lansoprazole [Prevacid] 30 mg PO DAILY #30 capsule. Levothyroxine Sodium [Levoxyl] 100 mcg PO DAILY #30 tablet Lidocaine Patch [Lidoderm 5% patch] 1 patch TP DAILY #10 adh..patch Lisinopril [Zestril] 20 mg PO DAILY #30 tablet Phenytoin ER [Dilantin ER] 100 mg PO TID #90 capsule Sertraline [Zoloft] 50 mg PO DAILY #30 tablet Tizanidine HCl 4 mg PO TID PRN #20 tablet PRN Reason: Muscle Pain Home Medications: Acetaminophen [Tylenol] 650 mg PO Q6HR PRN tablet 07/29/17 [Rx] Bisacodyl [Woman's Laxative] 5 mg PO DAILY PRN 02/11/18 [History] FentaNYL PATCH [Duragesic] 75 mcg TD Q72H 02/11/18 [History] Melatonin [Melatin] 3 mg PO HS 02/11/18 [History] Morphine Sulfate [Morphine Oral Solution] 5 mg PO Q4H PRN 02/11/18 [History] Sennosides [Senna] 8.6 mg PO DAILY 02/11/18 [History] Acetaminophen w/Cod 300-30 mg [Tylenol w/Codeine #3] 1 each PO Q6HR PRN 5 Days # 20 tablet 02/12/18 [Rx] Amoxicillin/Clavulanate [Augmentin] 875 mg PO BIDWM #10 tablet 02/12/18 [Rx] Benzonatate [Tessalon] 100 mg PO TID PRN #30 capsule 02/12/18 [Rx] FentaNYL PATCH [Duragesic] 1 each TD Q72H 6 Days #2 patch.td72 02/12/18 [Rx] Gabapentin [Neurontin] 300 mg PO BID #30 capsule 02/12/18 [Rx] GuaiFENesin/Dextromethorphan [Robitussin/Dm] 5 ml PO Q4HR PRN udc 02/12/18 [Rx] Ipratropium/Albuterol Neb [Duoneb] 3 ml IH [id number] PRN #100 inhsol 02/12/18 [Rx] Lansoprazole [Prevacid] 30 mg PO DAILY #30 capsule. 02/12/18 [Rx] Levothyroxine Sodium [Levoxyl] 100 mcg PO DAILY #30 tablet 02/12/18 [Rx] Lidocaine Patch [Lidoderm 5% patch] 1 patch TP DAILY #10 adh..patch 02/12/18 [Rx ] Lisinopril [Zestril] 20 mg PO DAILY #30 tablet 02/12/18 [Rx] Phenytoin ER [Dilantin ER] 100 mg PO TID #90 capsule 02/12/18 [Rx] Promethazine [Phenergan] 25 mg PO Q6HR PRN #20 tablet 02/12/18 [Rx] Sertraline [Zoloft] 50 mg PO DAILY #30 tablet 02/12/18 [Rx] Tizanidine HCl 4 mg PO TID PRN #20 tablet 02/12/18 [Rx] clonazePAM [Klonopin] 0.5 mg PO TID PRN 7 Days #20 tablet 02/12/18 [Rx] Allergies/Adverse Reactions: 3 Allergy/AdvReac Type Severity Reaction Status Date / Time phenobarbital AdvReac Intermediate hallucinati Verified 04/07/17 17:57 ons Date of admission: 02/10/18 22:39 Primary care physician: Ernesto Easton MD Consults: 02/10/18 23:55 Consult to Nutrition [CONS] Routine Comment: Consulting Provider: NUTRITION Reason for Dietary Consult: MST Score 02/11/18 01:27 Consult to [employer] [CONS] Routine Reason for SW Consult: Pt expressed a desire to leave the nurs home and return to her home with her 02/11/18 03:07 Consult to [employer] Feeder (W&C) [CONS] Routine Reason For Exam: Reason for SW Consult: desires to go home after discharge instead of to a nursing facility Discharging clinician: Heather Jeffrey Anticipated date of discharge: 02/12/18 - Constitutional Vitals: Temp Pulse Resp BP Pulse Ox 97.7 F 67 15 129/53 96 02/12/18 06:40 02/12/18 06:40 02/12/18 06:40 02/12/18 06:40 02/12/18 06:40 General appearance: Present: cooperative, A&O X 3, no acute distress, answers questions appropriately - Head Head exam: Present: atraumatic, normal inspection, normocephalic - Respiratory Respiratory exam: Present: wheezes (expiratory wheezing noted in left lower lung ). Absent: accessory muscle use, respiratory distress - Cardiovascular Cardiovascular exam: Present: RRR - GI/Abdominal GI/Abdominal exam: Present: soft. Absent: rebound, rigid, tenderness - Neurological Exam Neurological exam: Present: alert, oriented X3, no focal deficits - Patient Status Disposition: Home, Self-Care Condition: Fair Functional capacity at discharge: independent ambulation Overall status at discharge: patient is back to baseline - Discharge Instructions Follow Up With: Ernesto Easton MD [Primary Care Provider] - Additional Instructions: Please restart all of your home medications. Please start the new medication Augmentin for your pneumonia. Please follow-up with your primary care physician within the next week. Please return if there are any worsening or new symptoms. - Diet and Activity Activity: resume usual activities as tolerated, wear oxygen at all times Diet: advance to your usual diet <Stone Don - Last Filed: 02/12/18 10:40> Orders not resulted at time of discharge: Pending orders 02/11/18 01:05 Culture,Blood [BC] Routine 02/11/18 01:56 Culture,Sputum with Gram Stain [RM] Routine Date of Encounter: 02/12/18 - Discharge Diagnosis (1) Sepsis Priority: Primary Status: Resolved Qualifiers: Sepsis type: Pneumococcus Qualified Code(s): A40.3 - Sepsis due to Streptococcus pneumoniae (2) Pneumonia Priority: Primary Status: Acute Qualifiers: Pneumonia type: due to Pneumococcus Laterality: left Lung location: lower lobe of lung Qualified Code(s): J13 - Pneumonia due to Streptococcus pneumoniae (3) Hypokalemia Status: Resolved (4) Acute kidney injury Status: Resolved (5) QT prolongation Status: Chronic (6) Breast cancer Status: Chronic Qualifiers: Breast location: unspecified site of breast Estrogen receptor status: positive Patient sex: female Laterality: left Qualified Code(s): C50.912 - Malignant neoplasm of unspecified site of left female breast; Z17.0 - Estrogen receptor positive status [ER+] (7) Lung cancer Status: Chronic Qualifiers: Laterality: unspecified laterality Lung location: unspecified part of lung Qualified Code(s): C34.90 - Malignant neoplasm of unspecified part of unspecified bronchus or lung (8) HTN (hypertension) Priority: Secondary Status: Chronic Qualifiers: Hypertension type: essential hypertension Qualified Code(s): I10 - Essential (primary) hypertension (9) Chronic pain due to malignant neoplastic disease Priority: Secondary Status: Chronic (10) Tobacco abuse Priority: Secondary Status: Chronic Hospital course: Ms. Espinal is a 87 year old female Discharge discussed with: patient Time spent discussing smoking cessation with patient: 3 to 10 minutes - Time Spent with Patient Total time spent providing and/or coordinating discharge services: 41min Date of admission: 02/10/18 22:39 Primary care physician: Ernesto Easton MD Consults: 02/10/18 23:55 Consult to Nutrition [CONS] Routine Comment: Consulting Provider: NUTRITION Reason for Dietary Consult: MST Score 02/11/18 01:27 Consult to [employer] [CONS] Routine Reason for SW Consult: Pt expressed a desire to leave the [facility] home and return to her home with her 02/11/18 03:07 Consult to [employer]eder (W&C) [CONS] Routine Reason For Exam: Reason for SW Consult: desires to go home after discharge instead of to a nursing facility - Constitutional Vitals: Temp Pulse Resp BP Pulse Ox 97.7 F 67 15 129/53 96 02/12/18 06:40 02/12/18 06:40 02/12/18 06:40 02/12/18 06:40 02/12/18 06:40 - Attending Attestation I examined this patient and my medical decision-making was reviewed with the Resident Physician on 02/12/18. I agree with the documented findings, disposition and treatment plan as described except to the extent set forth below. Ms Espinal has been admitted for acute pneumococcal pneumonia. She has been treated with IV abx and has improved. She is back to baseline respiratory status. She does not want to go back to SNF and family OK with her going home with their help. At this time she is afebrile. All meds done with prescription. Exam Alert Comfortable Mucus membranes dry Heart distant Lungs clear Plan D/C home today.
[2018-02-12] MEDS: cefTRIAXone 1,000 MG in Water for inj. (sterile) 20 ML 10 ML IVP SCH (10:10)
[2018-02-12] MEDS: Gabapentin 300 MG CAPSULE PO SCH (10:11)
== END 2018-02-12 14:09 | disposition home or self-care (01) | DRG 871 ==
LOC: 2NENU → SUATTDRO 22:39
PROVIDERS: ADMIT Internal Medicine; ATTEND Internal Medicine